=== PATIENT | female | born 1955 | race American Indian/Alaskan Native ===

== ENCOUNTER 2018-11-16 19:59 | Inpatient (IN) | payer OTHER ==
[2018-11-16] MEDS ORDERED: APRESOLINE IV ONE ×2 (21:11→23:28)
--- NOTE | 2018-11-16 21:31 | Emergency Department Report ---
ED Shortness of Breath HPI - General Chief Complaint: Chest Pain Stated Complaint: SWELLING IN LOWER LEGS Time Seen by Provider: 11/16/18 20:32 Source: EMS Mode of arrival: Stretcher Limitations: Other - History of Present Illness Initial Comments: 63-year-old female with history of hypertension and COPD presents to ED with 3 day history of shortness of breath, swelling in bilateral lower extremities. She denies history of congestive heart failure. Patient states has not had blood pressure medication in several [facility], however, patient has been able to receive her albuterol and Atrovent. Patient reports associated chest pain, cough productive of sputum, orthopnea. Denies fever. MD Complaint: shortness of breath, cough, chest pain -: days(s) (3) Severity: moderate Consistency: intermittent Improves With: rest Worsens With: exertion Known History Of: COPD Associated Symptoms: chest pain, cough - Related Data Home Medications Medication Instructions Recorded Confirmed Last Taken Acetaminophen [Pain Reliever] 500 mg PO Q6H 07/29/13 07/29/13 07/29/13 03:00 Codeine Sulfate 30 mg PO Q6H 07/29/13 07/29/13 07/29/13 03:00 Diazepam [Valium] 10 mg PO Q8H PRN 07/29/13 07/29/13 07/29/13 07:30 LORazepam [Ativan] 1 mg PO QHS 07/29/13 07/29/13 07/26/13 Vit A and D3 in Cod Liver Oil [Cod 1 cap PO DAILY 07/29/13 07/29/13 07/27/13 Liver Oil Softgel] Vitamin B Complex [B Complex] 1 each PO DAILY 07/29/13 07/29/13 07/29/13 Vitamin E 400 unit PO DAILY 07/29/13 07/29/13 07/29/13 hydroCHLOROthiazide [Hctz] 25 mg PO QDAY 07/29/13 07/29/13 07/29/13 07:00 traMADol [Ultram] 50 mg PO Q6HR PRN 07/29/13 07/29/13 07/29/13 08:00 Previous Rx's Medication Instructions Recorded Last Taken Type Acetaminophen/Codeine [Tylenol #3] 1 tab PO Q6H PRN #10 tab 07/30/13 Unknown Rx Nitrofurantoin [place]/M-Cryst 100 mg PO Q12HR #14 capsule 07/30/13 Unknown Rx [Macrobid] Phenazopyridine [Pyridium] 100 mg PO TID #15 tablet 07/30/13 Unknown Rx Allergies Allergy/AdvReac Type Severity Reaction Status Date / Time morphine Allergy Swelling Verified 07/29/13 18:54 Penicillins Allergy Swelling Verified 07/29/13 18:54 tetracycline [Tetracycline] Allergy Swelling Verified 07/29/13 18:54 ED Review of Systems ROS: Stated complaint: SWELLING IN LOWER LEGS Other details as noted in HPI Comment: All other systems reviewed and negative Constitutional: denies: chills, fever Respiratory: cough, orthopnea, shortness of breath, SOB with exertion, SOB at rest Cardiovascular: chest pain Musculoskeletal: other (reports swelling to bilateral feet and lower legs) ED Past Medical Hx - Past Medical History Previous Medical History?: Yes Hx Hypertension: Yes Hx Diabetes: Yes Hx Headaches / Migraines: Yes Hx COPD: Yes Additional medical history: devic's disease, diverticulitis - Surgical History Hx Appendectomy: Yes Additional Surgical History: hysterectomy - Social History Smoking Status: Former Smoker Substance Use Type: None - Medications Home Medications: Home Medications Medication Instructions Recorded Confirmed Last Taken Type Acetaminophen [Pain Reliever] 500 mg PO Q6H 07/29/13 07/29/13 07/29/13 03:00 History Codeine Sulfate 30 mg PO Q6H 07/29/13 07/29/13 07/29/13 03:00 History Diazepam [Valium] 10 mg PO Q8H PRN 07/29/13 07/29/13 07/29/13 07:30 History LORazepam [Ativan] 1 mg PO QHS 07/29/13 07/29/13 07/26/13 History Vit A and D3 in Cod Liver Oil [Cod 1 cap PO DAILY 07/29/13 07/29/13 07/27/13 History Liver Oil Softgel] Vitamin B Complex [B Complex] 1 each PO DAILY 07/29/13 07/29/13 07/29/13 History Vitamin E 400 unit PO DAILY 07/29/13 07/29/13 07/29/13 History hydroCHLOROthiazide [Hctz] 25 mg PO QDAY 07/29/13 07/29/13 07/29/13 07:00 History traMADol [Ultram] 50 mg PO Q6HR PRN 07/29/13 07/29/13 07/29/13 08:00 History Acetaminophen/Codeine [Tylenol #3] 1 tab PO Q6H PRN #10 tab 07/30/13 Unknown Rx Nitrofurantoin [place]/M-Cryst 100 mg PO Q12HR #14 capsule 07/30/13 Unknown Rx [Macrobid] Phenazopyridine [Pyridium] 100 mg PO TID #15 tablet 07/30/13 Unknown Rx ED Physical Exam - General Limitations: Other General appearance: alert - Head Head exam: Present: atraumatic, normocephalic - ENT ENT exam: Present: mucous membranes moist - Respiratory Respiratory exam: Present: respiratory distress, rales, other (tachypneic) - Cardiovascular Cardiovascular Exam: Present: normal rhythm, tachycardia - GI/Abdominal GI/Abdominal exam: Present: soft. Absent: distended, tenderness - Extremities Exam Extremities exam: Present: pedal edema, other (1+ pitting edema bilateral lower legs) - Neurological Exam Neurological exam: Present: alert, oriented X3 - Psychiatric Psychiatric exam: Present: normal affect, normal mood - Skin Skin exam: Present: warm, dry, intact, normal color ED Course Vital Signs 11/16/18 11/16/18 11/16/18 20:07 20:54 21:36 Temperature 98.2 F 97.7 F Pulse Rate 108 H 104 H 106 H Respiratory 16 26 H Rate Blood Pressure 210/116 198/95 Blood Pressure 191/108 [Left] O2 Sat by Pulse 96 97 Oximetry 11/16/18 11/16/18 11/17/18 22:30 23:32 00:16 Temperature Pulse Rate 107 H 111 H 102 H Respiratory 28 H 26 H Rate Blood Pressure 190/73 190/73 200/97 Blood Pressure [Left] O2 Sat by Pulse Oximetry - Consultations Consultation #1: 11/17/18 01:13 Spoke w/ Dr Townsend, e learning coordinator. He is aware of pt, agrees w/ management, will be seen in the AM. ED Medical Decision Making - Lab Data Result diagrams: 11/16/18 22:09 11/16/18 22:09 - EKG Data -: EKG Interpreted by Ok EKG shows normal: sinus rhythm, axis, intervals, QRS complexes Rate: tachycardia (rate 105) - EKG Data Interpretation: LVH, other (T wave inversions I and aVL) - Radiology Data Radiology results: report reviewed, image reviewed CXR results faxed: heart is moderately enlarged; lungs clear of infiltrate, pleural effusion, vascular congestion, or pneumothorax. Reports not crossing over into [employer]. - Medical Decision Making 63-year-old female presents to ED with dyspnea on exertion, orthopnea, chest pain, swelling and bilateral lower legs. Patient's hypertension has gone untreated for several years. Patient denies known history of congestive heart failure. Patient has pitting edema to the bilateral feet and lower extremities, rales on lung exam, extremely elevated BNP, moderate cardiomegaly on chest x- ray. No pulmonary edema noted on x-ray, however, on exam rales are auscultated. Patient appears to have new onset CHF, hypertensive emergency and an NSTEMI. Patient given hydralazine for her blood pressure, which has improved. Dr Townsend, e learning coordinator, consulted, agrees w/ management. Glucose is elevated into the 800s. Patient not currently on any diabetes medications, states she was so she is "borderline diabetic." Anion gap 25, bicarbonate of 19 with small amount of serum ketones. Insulin drip initiated. Spoke w/ Dr Ruffin for admission, he requests that bridge orders be placed for ICU. - Differential Diagnosis CHF, COPD, pneumonia Critical Care Time: Yes Critical care time in (mins) excluding proc time.: 70 Critical care attestation.: If time is entered above; I have spent that time in minutes in the direct care of this critically ill patient, excluding procedure time. Critical Care Time: 70 minutes ED Disposition Clinical Impression: New onset of congestive heart failure, NSTEMI (non-ST elevated myocardial infarction), DKA (diabetic ketoacidosis), Hypertensive emergency Disposition: OP ADMIT IP TO THIS HOSP Is pt being admited?: Yes Condition: Critical Instructions: Diabetic Ketoacidosis (ED), Hypertension (ED) Referrals: PAVEL MINAYA MD [Primary Care Provider] - 3-5 Days Time of Disposition: 00:24
[2018-11-16 22:40] LABS: Basophils % (Auto) 0.5 % (0.0-1.8); Eosinophils % (Auto) 0.1 % (0.0-4.3); Hematocrit 42.1 % (30.3-42.9); Hemoglobin 13.2 gm/dl (10.1-14.3); Lymphocytes # (Auto) 0.7 K/mm3 (1.2-5.4); Lymphocytes % (Auto) 7.9 % (13.4-35.0); Mean Corpuscular HGB Conc 31 % (30-34); Mean Corpuscular Volume 92 fl (79-97); Monocytes # (Auto) 0.5 K/mm3 (0.0-0.8); Monocytes % (Auto) 5.3 % (0.0-7.3); Red Blood Count 4.58 M/mm3 (3.65-5.03); Red Cell Distribution Width 16.7 % (13.2-15.2)
[2018-11-16 22:48] LABS: Platelet Count 361 K/mm3 (140-440)
[2018-11-16 23:16] LABS: Chol/HDL Ratio 3.82 %
[2018-11-16 23:17] LABS: BUN/Creatinine Ratio 23; Blood Urea Nitrogen 23 mg/dL (7-17); Hemolysis Index 32
[2018-11-16] MEDS ORDERED: HEPARIN 10,000 UNITS/10 ML IV ONE (23:29)
[2018-11-17 00:11] LABS: INR 0.98 (0.87-1.13)
[2018-11-17 00:12] LABS: Partial Thromboplastin Time 23.8 Sec. (24.2-36.6)
[2018-11-17] MEDS ORDERED: D50W (25GM) Syringe IV PRN (00:16)
[2018-11-17] MEDS: HEPARIN/ 0.45% NACL-25,000 UNIT/500 ML 25,000 UNIT/500 ML BAG IV SCH (01:00)
[2018-11-17] MEDS ORDERED: HumuLIN R 100 UNITS in NACL 0.9% 99 ML IV SCH (01:00)
[2018-11-17] MEDS ORDERED: ZOFRAN IV PRN (01:49)
[2018-11-17] MEDS ORDERED: NITRO-BID 2% TP SCH (02:00)
[2018-11-17 02:20] LABS: BUN/Creatinine Ratio 22; Blood Urea Nitrogen 22 mg/dL (7-17); Hemolysis Index 263
[2018-11-17] MEDS ORDERED: XOPENEX IH PRN (02:33)
[2018-11-17] MEDS ORDERED: NACL 0.9% 500 ML 500 ML ONE (02:39)
[2018-11-17 02:59] LABS: BUN/Creatinine Ratio 21; Blood Urea Nitrogen 21 mg/dL (7-17); Calcium 9.4 mg/dL (8.4-10.2); Hemolysis Index 27
[2018-11-17] MEDS ORDERED: NACL 0.9% 500 ML 500 ML IV SCH (03:00)
[2018-11-17 06:55] LABS: BUN/Creatinine Ratio 21; Blood Urea Nitrogen 21 mg/dL (7-17); Calcium 9.8 mg/dL (8.4-10.2); Hemolysis Index 91
[2018-11-17 07:41] LABS: Creatine Kinase MB 77.1 ng/mL (0.0-4.0)
[2018-11-17] MEDS ORDERED: D5W/0.45% NACL/KCL 20 MEQ 20 MEQ/1,000 ML BAG IV SCH (08:00)
--- NOTE | 2018-11-17 08:17 | Progress Note ---
Assessment and Plan Assessment and plan: --Non-ST elevation [place]; serial cardiac enzymes, echocardiogram for LV function ejection fraction, aspirin and beta blockers kirk inhibitors nitrates and statins, Cardiology evaluation, continue heparin drip --Diabetic ketoacidosis/hyperosmolar state; Patient received insulin drip, blood sugars reasonable level, and an Normal DC drip, start ADA diet, long-acting insulin, diabetic education, nutrition ed ucation --Hypertensive urgency; present on admission, patient blood pressures reasonable level Continue current antihypertensives and when necessary medications -- Acute congestive heart failure; probably systolic dysfunction, unknown ejection fraction, IV diuretics Beta blockers kirk inhibitors, echocardiogram for LV function and ejection fraction Cardiology consult. --DVT prophylaxis ; patient is already on heparin drip --Full CODE STATUS Follow consults evaluation and recommendations plan of care is reviewed with the patient and her nurse Cr Care time 32 min The high probability of a clinically significant, sudden or life threatening deterioration of the [cardiac,metabolic and endocrine] system(s) required my full and direct attention, intervention and personal management.The aggregate critical care time was [32 ] minutes. This time is in addition to time spent performing reported procedures but includes the following: [x] Data Review and interpretation [x] Patient assessment and monitoring of vital signs [x] Documentation [x] Medication orders and management History Interval history: Patient seen and examined medical records reviewed Patient was admitted for DKA/hyperosmolar state/worsening shortness of breath/elevated cardiac enzymes Patient feels slightly better, complaints of cough and congestion And chest discomfort In mild distress Vital signs reviewed Hospitalist Physical - Constitutional Vitals: Temp Pulse Resp BP Pulse Ox 97.7 F 90 22 161/86 97 11/16/18 20:54 11/17/18 04:00 11/17/18 04:00 11/17/18 04:00 11/17/18 07:29 General appearance: Present: mild distress, well-nourished, obese - EENT Eyes: Present: PERRL, EOM intact - Neck Neck: Present: supple, normal ROM - Respiratory Respiratory effort: normal Respiratory: bilateral: diminished, rales, negative: rhonchi, wheezing - Cardiovascular Rhythm: regular Heart Sounds: Present: S1 & S2 - Extremities Extremities: no ischemia Extremity abnormal: edema (bilateral edema) - Abdominal General gastrointestinal: soft, non-tender, non-distended, normal bowel sounds - Integumentary Integumentary: Present: clear, warm - Psychiatric Psychiatric: appropriate mood/affect, cooperative - Neurologic Neurologic: moves all extremities Results - Labs CBC & Chem 7: 11/16/18 22:09 11/17/18 09:04 Labs: Laboratory Last Values WBC 9.1 K/mm3 (4.5-11.0) 11/16/18 22:09 RBC 4.58 M/mm3 (3.65-5.03) 11/16/18 22:09 Hgb 13.2 gm/dl (10.1-14.3) 11/16/18 22:09 Hct 42.1 % (30.3-42.9) 11/16/18 22:09 MCV 92 fl (79-97) 11/16/18 22:09 MCH 29 pg (28-32) 11/16/18 22:09 MCHC 31 % (30-34) 11/16/18 22:09 RDW 16.7 % (13.2-15.2) H 11/16/18 22:09 Plt Count 361 K/mm3 (140-440) 11/16/18 22:09 Lymph % (Auto) 7.9 % (13.4-35.0) L 11/16/18 22:09 [place] % (Auto) 5.3 % (0.0-7.3) 11/16/18 22:09 Eos % (Auto) 0.1 % (0.0-4.3) 11/16/18 22:09 Baso % (Auto) 0.5 % (0.0-1.8) 11/16/18 22:09 Lymph # 0.7 K/mm3 (1.2-5.4) L 11/16/18 22:09 [place] # 0.5 K/mm3 (0.0-0.8) 11/16/18 22:09 Eos # 0.0 K/mm3 (0.0-0.4) 11/16/18 22:09 Baso # 0.0 K/mm3 (0.0-0.1) 11/16/18 22:09 Seg Neutrophils % 86.2 % (40.0-70.0) H 11/16/18 22:09 Seg Neutrophils # 7.8 K/mm3 (1.8-7.7) H 11/16/18 22:09 PT 13.6 Sec. (12.2-14.9) 11/16/18 23:34 INR 0.98 (0.87-1.13) 11/16/18 23:34 APTT 23.8 Sec. (24.2-36.6) L 11/16/18 23:34 Sodium 138 mmol/L (137-145) D 11/17/18 06:08 Potassium 4.4 mmol/L (3.6-5.0) 11/17/18 06:08 Chloride 100.2 mmol/L (98-107) 11/17/18 06:08 Carbon Dioxide 23 mmol/L (22-30) 11/17/18 06:08 Anion Gap 19 mmol/L 11/17/18 06:08 BUN 21 mg/dL (7-17) H 11/17/18 06:08 Creatinine 1.0 mg/dL (0.7-1.2) 11/17/18 06:08 Estimated GFR > 60 ml/min 11/17/18 06:08 BUN/Creatinine Ratio 21 % 11/17/18 06:08 Glucose 72 mg/dL (65-100) 11/17/18 06:08 POC Glucose 131 (70-105) H 11/17/18 07:04 Ketones Quantitative Small (Negative) 11/16/18 22:09 Calcium 9.8 mg/dL (8.4-10.2) 11/17/18 06:08 Phosphorus 4.80 mg/dL (2.5-4.5) H 11/17/18 00:39 Magnesium 2.10 mg/dL (1.7-2.3) 11/17/18 00:39 Total Creatine Kinase 813 units/L (30-135) H 11/17/18 06:08 CK-MB (CK-2) 77.1 ng/mL (0.0-4.0) H 11/17/18 06:08 CK-MB (CK-2) Rel Index 9.4 (0-4) H 11/17/18 06:08 Troponin T 1.200 ng/mL (0.00-0.029) H* 11/16/18 22:09 NT-Pro-B Natriuret Pep 59390 pg/mL (0-900) H 11/16/18 22:09 Triglycerides 231 mg/dL (2-149) H 11/16/18 22:09 Cholesterol 176 mg/dL (50-199) 11/16/18 22:09 LDL Cholesterol Direct 106 mg/dL (50-130) 11/16/18 22:09 HDL Cholesterol 46 mg/dL (40-59) 11/16/18 22:09 Cholesterol/HDL Ratio 3.82 % 11/16/18 22:09
[2018-11-17] MEDS: HumaLOG SUB-Q SCH ×3 (08:45→16:30)
[2018-11-17] MEDS ORDERED: LASIX IV ONE (09:23)
[2018-11-17] MEDS: ASPIRIN PO SCH (10:00)
[2018-11-17 10:12] LABS: BUN/Creatinine Ratio 25; Blood Urea Nitrogen 20 mg/dL (7-17); Calcium 9.4 mg/dL (8.4-10.2); Hemolysis Index 128
--- NOTE | 2018-11-17 10:47 | Consultation ---
History of Present Illness Consult date: 11/17/18 Consult reason: abnormal cardiac enzymes, shortness of breath History of present illness: This 63-year-old patient with history of diabetes mellitus, hypertension and hyperlipidemia followed in the hospital came in with shortness of breath and ac hes and pains all over the body. No specific request chest pain with history of coronary pain. She feels cold all over the body. She has not been able to take medications and claims she was not able to get from the [facility]. Patient has no history of myocardial infarction the past. She's not been regularly followed by physicians as an outpatient. Patient has been having shortness of breath for the last few days along with edema of the legs Past History Past Medical History: diabetes, hypertension, hyperlipidemia Past Surgical History: Other (not known) Social history: no significant social history (Unable to get.) Family history: no significant family history Medications and Allergies Allergies Allergy/AdvReac Type Severity Reaction Status Date / Time dexbrompheniramine Allergy Severe Shortness Verified 11/17/18 05:48 [From Disophrol] of Breath pseudoephedrine Allergy Severe Shortness Verified 11/17/18 05:48 [From Disophrol] of Breath morphine Allergy Swelling Verified 07/29/13 18:54 Penicillins Allergy Swelling Verified 07/29/13 18:54 tetracycline [Tetracycline] Allergy Swelling Verified 07/29/13 18:54 diphenhydramine AdvReac Severe Shortness Verified 11/17/18 05:46 [From Benadryl] of Breath Home Medications Medication Instructions Recorded Confirmed Last Taken Type Acetaminophen [Pain Reliever] 500 mg PO Q6H 07/29/13 11/17/18 07/29/13 03:00 History Codeine Sulfate 30 mg PO Q6H 07/29/13 11/17/18 11/15/18 History Diazepam [Valium] 10 mg PO Q8H PRN 07/29/13 11/17/18 11/15/18 History LORazepam [Ativan] 1 mg PO QHS 07/29/13 11/17/18 11/15/18 History Vit A and D3 in Cod Liver Oil [Cod 1 cap PO DAILY 07/29/13 11/17/18 11/15/18 His tory Liver Oil Softgel] Vitamin B Complex [B Complex] 1 each PO DAILY 07/29/13 11/17/18 11/15/18 History Vitamin E 400 unit PO DAILY 07/29/13 11/17/18 11/15/18 History hydroCHLOROthiazide [Hctz] 25 mg PO QDAY 07/29/13 11/17/18 07/29/13 07:00 History traMADol [Ultram] 50 mg PO Q6HR PRN 07/29/13 11/17/18 11/15/18 History Acetaminophen/Codeine [Tylenol #3] 1 tab PO Q6H PRN #10 tab 07/30/13 11/17/18 Unknown Rx Nitrofurantoin [place]/M-Cryst 100 mg PO Q12HR #14 capsule 07/30/13 11/17/18 11/15/18 Rx [Macrobid] Phenazopyridine [Pyridium] 100 mg PO TID #15 tablet 07/30/13 11/17/18 11/15/18 Rx Diazepam [Valium] 10 mg PO TID 11/17/18 11/17/18 11/15/18 History Active Meds: Active Medications Acetaminophen (Tylenol) 650 mg PO Q4H PRN PRN Reason: Fever >101 Aspirin (Aspirin) 325 mg PO QDAY MEDARDO Dextrose (D50w (25gm) Syringe) 0 ml IV ONCE PRN PRN Reason: Hypoglycemia Furosemide (Lasix) 40 mg IV QDAY MEDARDO Hydralazine HCl (Apresoline) 10 mg IV Q4H PRN PRN Reason: Blood Pressure Hydromorphone HCl (Dilaudid) 0.5 mg IV Q6H PRN PRN Reason: Pain, Moderate (4-6) Heparin Sodium/Sodium Chloride (Heparin/ 0.45% Nacl-25,000 Unit/500 Ml) 25,000 unit in 500 mls @ 20 mls/hr IV TITRATE MEDARDO; Protocol Last Titration: 11/17/18 01:20 Dose: 1,000 units/hr, 20 mls/hr Documented by: Insulin Human Regular 100 (units/ Sodium Chloride) 100 mls @ 5 mls/hr IV TITR MEDARDO; Protocol Stop: 11/17/18 14:00 Last Titration: 11/17/18 08:30 Dose: 0 units/hr, 0 mls/hr Documented by: Sodium Chloride (Nacl 0.9% 500 Ml) 500 mls @ 50 mls/hr IV DIRECT MEDARDO Last Admin: 11/17/18 02:50 Dose: 50 mls/hr Documented by: Potassium Chloride/Dextrose/Sod Cl (D5w/0.45% Nacl/Kcl 20 Meq) 20 meq in 1,000 mls @ 75 mls/hr IV DIRECT MEDARDO Insulin Human Isoph/Insulin Regular (Humulin 70/30) 10 unit SUB-Q BIDDIAB MEDARDO Insulin Human Lispro (Humalog) 0 unit SUB-Q ACHS MEDARDO; Protocol Nitroglycerin (Nitro-Bid 2%) 0.5 inch TP QIDNTG MEDARDO; Protocol Ondansetron HCl (Zofran) 4 mg IV Q8H PRN PRN Reason: Nausea And Vomiting Review of Systems Constitutional: chills, fatigue, weakness, malaise Ears, nose, mouth and throat: deferred Breasts: deferred Cardiovascular: palpitations, dyspnea on exertion, high blood pressure, leg edema Gastrointestinal: abdominal pain Physical Examination Vital Signs Temp Pulse Resp BP Pulse Ox 98.2 F 108 H 16 210/116 96 11/16/18 20:07 11/16/18 20:07 11/16/18 20:07 11/16/18 20:07 11/16/18 20:07 General appearance: mild distress, cachectic HEENT: Positive: Normocephaly, Mucus Membranes Moist Neck: Positive: neck supple, trachea midline. Negative: JVD/HJR Cardiac: Positive: Reg Rate and Rhythm, S3, Tachycardia Lungs: Positive: Decreased Breath Sounds Neuro: Positive: Grossly Intact Abdomen: Positive: Soft, Active Bowel Sounds Extremities: Present: +1 Edema Results 11/16/18 22:09 11/17/18 09:04 Cardiac Enzymes 11/17/18 Range/Units 06:08 CK-MB (CK-2) 77.1 H (0.0-4.0) ng/mL Coagulation 11/16/18 Range/Units 23:34 PT 13.6 (12.2-14.9) Sec. INR 0.98 (0.87-1.13) APTT 23.8 L (24.2-36.6) Sec. Lipids 11/16/18 Range/Units 22:09 Triglycerides 231 H (2-149) mg/dL Cholesterol 176 (50-199) mg/dL HDL Cholesterol 46 (40-59) mg/dL Cholesterol/HDL Ratio 3.82 % CBC 11/16/18 Range/Units 22:09 WBC 9.1 (4.5-11.0) K/mm3 RBC 4.58 (3.65-5.03) M/mm3 Hgb 13.2 (10.1-14.3) gm/dl Hct 42.1 (30.3-42.9) % Plt Count 361 (140-440) K/mm3 Lymph # 0.7 L (1.2-5.4) K/mm3 [place] # 0.5 (0.0-0.8) K/mm3 Eos # 0.0 (0.0-0.4) K/mm3 Baso # 0.0 (0.0-0.1) K/mm3 Comprehensive Metabolic Panel 11/16/18 11/17/18 11/17/18 Range/Units 22:09 00:39 02:28 Sodium 127 L 124 L 131 L D (137-145) mmol/L Potassium 4.9 4.9 4.0 (3.6-5.0) mmol/L Chloride 88.4 L 92.9 L 96.8 L (98-107) mmol/L Carbon Dioxide 19 L 15 L 20 L (22-30) mmol/L BUN 23 H 22 H 21 H (7-17) mg/dL Creatinine 1.0 1.0 1.0 (0.7-1.2) mg/dL Glucose 878 H* 772 H* 492 H (65-100) mg/dL Calcium 9.0 9.0 9.4 (8.4-10.2) mg/dL 11/17/18 11/17/18 Range/Units 06:08 09:04 Sodium 138 D 139 (137-145) mmol/L Potassium 4.4 4.4 (3.6-5.0) mmol/L Chloride 100.2 99.9 (98-107) mmol/L Carbon Dioxide 23 23 (22-30) mmol/L BUN 21 H 20 H (7-17) mg/dL Creatinine 1.0 0.8 (0.7-1.2) mg/dL Glucose 72 106 H (65-100) mg/dL Calcium 9.8 9.4 (8.4-10.2) mg/dL - Imaging and Cardiology Echo: report reviewed, image reviewed (EF29%. Apical LV throbus 1x1.25cm) EKG interpretations - Telemetry EKG Rhythm: Sinus Tachycardia Chamber hypertrophy or enlargement: left ventricular hypertro Repolarization changes or abnormalities: repolarization abn secondary to ventricular hypertrophy Assessment and Plan NSTEMI. LV systolic dysfunction Apical mural thrombus. DKA. Hypertension. Hyperlipidemia. Recommendation: [facility]. After Improvement in DKA will proceed with cardiac cath.Today is Monday. nina plan for Monday. .
[2018-11-17] MEDS: NITRO-BID 2% TP SCH ×3 (10:53→18:00)
[2018-11-17] MEDS: LASIX IV SCH (11:07)
--- NOTE | 2018-11-17 12:13 | Consultation ---
History of Present Illness Consult date: 11/17/18 Reason for consult: other (ICU admission, non-STEMI, DKA) History of present illness: 63-year-old patient with history of diabetes mellitus, hypertension and hyperlipidemia followed in the hospital came in with shortness of breath and aches and pains all over the body. No specific request chest pain with history of coronary pain. She feels cold all over the body. She has not been able to take medications and claims she was not able to get from the [facility]. Patient has no history of myocardial infarction the past. She's not been re gularly followed by physicians as an outpatient. Patient has been having shortness of breath for the last few days along with edema of the legs On evaluation by us this morning, the patient reports some chest discomfort. She claims that this is unchanged since last May. No new symptoms. She also admits to be smoking 1 pack series per day and had been wheezing at home. Frequently. She uses an inhaler that appears to be Combivent, by patient description. Use 3-4 times per day. Reports that she was told to have COPD, chronic bronchitis. Admission EKG SINUS TACHYCARDIA RIGHT ATRIAL ENLARGEMENT LVH WITH SECONDARY REPOLARIZATION ABNORMALITY ANTERIOR ST ELEVATION, PROBABLY DUE TO LVH Echocardiogram Echo: report reviewed, EF29%. Apical LV throbus 1x1.25cm Past History Past Medical History: diabetes, hypertension, hyperlipidemia Past Surgical History: Other (not known) Social history: no significant social history (Unable to get.) Family history: no significant family history Medications and Allergies Allergies Allergy/AdvReac Type Severity Reaction Status Date / Time dexbrompheniramine Allergy Severe Shortness Verified 11/17/18 05:48 [From Disophrol] of Breath pseudoephedrine Allergy Severe Shortness Verified 11/17/18 05:48 [From Disophrol] of Breath morphine Allergy Swelling Verified 07/29/13 18:54 Penicillins Allergy Swelling Verified 07/29/13 18:54 tetracycline [Tetracycline] Allergy Swelling Verified 07/29/13 18:54 diphenhydramine AdvReac Severe Shortness Verified 11/17/18 05:46 [From Benadryl] of Breath Home Medications Medication Instructions Recorded Confirmed Last Taken Type Acetaminophen [Pain Reliever] 500 mg PO Q6H 07/29/13 11/17/18 07/29/13 03:00 History Codeine Sulfate 30 mg PO Q6H 10/28/13 02/16/19 02/14/19 History Diazepam [Valium] 10 mg PO Q8H PRN 07/29/13 11/17/18 11/15/18 History LORazepam [Ativan] 1 mg PO QHS 07/29/13 11/17/18 11/15/18 History Vit A and D3 in Cod Liver Oil [Cod 1 cap PO DAILY 07/29/13 11/17/18 11/15/18 History Liver Oil Softgel] Vitamin B Complex [B Complex] 1 each PO DAILY 07/29/13 11/17/18 11/15/18 History Vitamin E 400 unit PO DAILY 07/29/13 11/17/18 11/15/18 History hydroCHLOROthiazide [Hctz] 25 mg PO QDAY 07/29/13 11/17/18 07/29/13 07:00 History traMADol [Ultram] 50 mg PO Q6HR PRN 07/29/13 11/17/18 11/15/18 History Acetaminophen/Codeine [Tylenol #3] 1 tab PO Q6H PRN #10 tab 07/30/13 11/17/18 Unknown Rx Nitrofurantoin [place]/M-Cryst 100 mg PO Q12HR #14 capsule 07/30/13 11/17/18 11/15/18 Rx [Macrobid] Phenazopyridine [Pyridium] 100 mg PO TID #15 tablet 07/30/13 11/17/18 11/15/18 Rx Diazepam [Valium] 10 mg PO TID 11/17/18 11/17/18 11/15/18 History Active Meds: Active Medications Acetaminophen (Tylenol) 650 mg PO Q4H PRN PRN Reason: Fever >101 Aspirin (Aspirin) 325 mg PO QDAY [facility] Last Admin: 11/17/18 10:00 Dose: 325 mg Documented by: Atorvastatin Calcium (Lipitor) 80 mg PO QHS [facility] Dextrose (D50w (25gm) Syringe) 0 ml IV ONCE PRN PRN Reason: Hypoglycemia Furosemide (Lasix) 40 mg IV QDAY [facility] Last Admin: 11/17/18 11:07 Dose: Not Given Documented by: Hydralazine HCl (Apresoline) 10 mg IV Q4H PRN PRN Reason: Blood Pressure Hydromorphone HCl (Dilaudid) 0.5 mg IV Q6H PRN PRN Reason: Pain, Moderate (4-6) Heparin Sodium/Sodium Chloride (Heparin/ 0.45% Nacl-25,000 Unit/500 Ml) 25,000 unit in 500 mls @ 20 mls/hr IV TITRATE MEDARDO; Protocol Last Titration: 11/17/18 01:20 Dose: 1,000 units/hr, 20 mls/hr Documented by: Insulin Human Regular 100 (units/ Sodium Chloride) 100 mls @ 5 mls/hr IV TITR MEDARDO; Protocol Stop: 11/17/18 14:00 Last Titration: 11/17/18 08:30 Dose: 0 units/hr, 0 mls/hr Documented by: Sodium Chloride (Nacl 0.9% 500 Ml) 500 mls @ 50 mls/hr IV DIRECT MEDARDO Last Admin: 11/17/18 02:50 Dose: 50 mls/hr Documented by: Potassium Chloride/Dextrose/Sod Cl (D5w/0.45% Nacl/Kcl 20 Meq) 20 meq in 1,000 mls @ 75 mls/hr IV DIRECT MEDARDO Insulin Human Isoph/Insulin Regular (Humulin 70/30) 10 unit SUB-Q BIDDIAB MEDARDO Last Admin: 11/17/18 11:04 Dose: 10 unit Documented by: Insulin Human Lispro (Humalog) 0 unit SUB-Q ACHS MEDARDO; Protocol Last Admin: 11/17/18 11:52 Dose: 4 unit Documented by: Metoprolol Tartrate (Lopressor) 25 mg PO BID MEDARDO Nitroglycerin (Nitro-Bid 2%) 0.5 inch TP QIDNTG [facility]; Protocol Last Admin: 11/17/18 10:53 Dose: 0.5 inch Documented by: Ondansetron HCl (Zofran) 4 mg IV Q8H PRN PRN Reason: Nausea And Vomiting Review of Systems All systems: negative Physical Examination Vital signs: Vital Signs Temp Pulse Resp BP Pulse Ox 98.2 F 108 H 16 210/116 96 11/16/18 20:07 11/16/18 20:07 11/16/18 20:07 11/16/18 20:07 11/16/18 20:07 General appearance: no acute distress Eyes: non-icteric ENT: oropharynx moist Neck: supple, no JVD Ascultation: Bilateral: wheezes (bilaterally occasional rhonchi) Cardiovascular: regular rate and rhythm Gastrointestinal: normoactive bowel sounds, non-distended Extremities: no cyanosis, edema Musculoskeletal: no deformities normal mental status, non-focal exam, CN II-XII normal Results - Laboratory Findings CBC and BMP: 11/16/18 22:09 11/17/18 09:04 PT/INR, D-dimer PT 13.6 Sec. (12.2-14.9) 11/16/18 23:34 INR 0.98 (0.87-1.13) 11/16/18 23:34 Abnormal lab findings: Abnormal Labs 11/16/18 11/16/18 11/16/18 20:28 22:09 22:09 RDW 16.7 H Lymph % (Auto) 7.9 L Lymph # 0.7 L Seg Neutrophils % 86.2 H Seg Neutrophils # 7.8 H APTT Heparin Anti-Xa Level Sodium 127 L Chloride 88.4 L Carbon Dioxide 19 L BUN 23 H Glucose 878 H* POC Glucose > 500 H Hemoglobin A1c Phosphorus Total Creatine Kinase CK-MB (CK-2) CK-MB (CK-2) Rel Index Troponin T NT-Pro-B Natriuret Pep Triglycerides 11/16/18 11/16/18 11/16/18 22:09 22:09 23:34 RDW Lymph % (Auto) Lymph # Seg Neutrophils % Seg Neutrophils # APTT 23.8 L Heparin Anti-Xa Level Sodium Chloride Carbon Dioxide BUN Glucose POC Glucose Hemoglobin A1c Phosphorus Total Creatine Kinase CK-MB (CK-2) CK-MB (CK-2) Rel Index Troponin T 1.200 H* NT-Pro-B Natriuret Pep 05441 H Triglycerides 231 H 11/17/18 11/17/18 11/17/18 00:39 00:39 00:57 RDW Lymph % (Auto) Lymph # Seg Neutrophils % Seg Neutrophils # APTT Heparin Anti-Xa Level Sodium 124 L Chloride 92.9 L Carbon Dioxide 15 L BUN 22 H Glucose 772 H* POC Glucose > 500 H Hemoglobin A1c Phosphorus 4.80 H Total Creatine Kinase CK-MB (CK-2) CK-MB (CK-2) Rel Index Troponin T NT-Pro-B Natriuret Pep Triglycerides 11/17/18 11/17/18 11/17/18 02:13 02:28 03:10 RDW Lymph % (Auto) Lymph # Seg Neutrophils % Seg Neutrophils # APTT Heparin Anti-Xa Level Sodium 131 L D Chloride 96.8 L Carbon Dioxide 20 L BUN 21 H Glucose 492 H POC Glucose 436 H 348 H Hemoglobin A1c Phosphorus Total Creatine Kinase CK-MB (CK-2) CK-MB (CK-2) Rel Index Troponin T NT-Pro-B Natriuret Pep Triglycerides 11/17/18 11/17/18 11/17/18 04:10 06:08 06:08 RDW Lymph % (Auto) Lymph # Seg Neutrophils % Seg Neutrophils # APTT Heparin Anti-Xa Level Sodium Chloride Carbon Dioxide BUN 21 H Glucose POC Glucose 319 H Hemoglobin A1c Phosphorus Total Creatine Kinase 813 H CK-MB (CK-2) 77.1 H CK-MB (CK-2) Rel Index 9.4 H Troponin T 1.550 H* D NT-Pro-B Natriuret Pep Triglycerides 11/17/18 11/17/18 11/17/18 07:04 08:30 09:04 RDW Lymph % (Auto) Lymph # Seg Neutrophils % Seg Neutrophils # APTT Heparin Anti-Xa Level Sodium Chloride Carbon Dioxide BUN 20 H Glucose 106 H POC Glucose 131 H 66 L Hemoglobin A1c Phosphorus Total Creatine Kinase CK-MB (CK-2) CK-MB (CK-2) Rel Index Troponin T NT-Pro-B Natriuret Pep Triglycerides 11/17/18 11/17/18 11/17/18 09:04 09:04 11:50 RDW Lymph % (Auto) Lymph # Seg Neutrophils % Seg Neutrophils # APTT Heparin Anti-Xa Level 1.06 H Sodium Chloride Carbon Dioxide BUN Glucose POC Glucose 201 H Hemoglobin A1c 17.7 H Phosphorus Total Creatine Kinase CK-MB (CK-2) CK-MB (CK-2) Rel Index Troponin T NT-Pro-B Natriuret Pep Triglycerides - Diagnostic Findings Chest x-ray: report reviewed, image reviewed Assessment and Plan Impression NSTEMI. LV systolic dysfunction Apical mural thrombus. See echo report DKA. Elevated blood sugar, hyperosmolar possibly. Off insulin drip at this po int. Reportedly she was not on any diabetes treatment as an outpatient, no follow-up COPD with exacerbation. Secondary to the above Tobacco abuse Hypertension. Controlled Hyperlipidemia. Recommendations [place] protocol. Follow-up cardiology recommendations Possible heart cath Monday Heparin infusion Continue DKA protocol, start diet long-acting insulin once anion gap cleared today. DVT prophylaxis Albuterol 2.5 milligram nebulizations every 6 hours when necessary No Solu-Medrol for now in view of blood sugar problems. We'll continue to monitor Oxygen support via nasal cannula or mask to maintain oximetry over 92% Smoking cessation discussed in detail. Thanks. Discussed with patient in detail all questions answered. We'll continue to follow while in the ICU Critical care time was 40 minutes of [id number] evaluation and coordination of care
[2018-11-17] MEDS ORDERED: PROVENTIL IH PRN (12:20)
--- NOTE | 2018-11-17 12:28 | History and Physical Report ---
CHIEF COMPLAINT: Chest pain. HISTORY OF PRESENT ILLNESS: The patient is a 63-year-old female, who says she has been having pain all over her body including the chest going on for about 3 days and associated with shortness of breath and swelling in the lower extremity. The patient also complained about orthopnea and nonproductive cough. There is no history of fever, no history of chills, but there is history of rapid heartbeat or tachycardia. The patient also denied history of nausea and vomiting and presented for evaluation. There is no history of dizziness. PAST MEDICAL HISTORY: Pertinent for hypertension, diabetes mellitus, migraine headaches, COPD, diverticulitis. PAST SURGICAL HISTORY: Pertinent for appendectomy and hysterectomy. FAMILY HISTORY: Noncontributory. SOCIAL HISTORY: The patient used to smoke cigarettes, but does not smoke currently, does not drink alcohol and does not use illicit drugs. MEDICATIONS: The patient's medications include Ativan 1 mg by mouth at bedtime, vitamin A and vitamin D one by mouth daily. Also, the patient takes vitamin B complex one by mouth daily, hydrochlorothiazide 25 mg by mouth daily, tramadol 50 mg by mouth every 6 hours as needed for pain. These medications were taken by the patient in 2012 and it is not clear whether the patient needs to be taking them at the current time. ALLERGIES: THE PATIENT IS ALLERGIC TO MORPHINE, PENICILLIN AND TETRACYCLINE. REVIEW OF SYSTEMS: CONSTITUTIONAL: There is no fever, no chills, no diaphoresis. HEENT: There is no headache or sore throat. CARDIOVASCULAR SYSTEM: Chest pain is present. Palpitations present. Orthopnea present. RESPIRATORY SYSTEM: Shortness of breath is present. Cough is present. GASTROINTESTINAL SYSTEM: There is no nausea, no vomiting, no abdominal pain, diarrhea or constipation. NEUROLOGICAL: There is no numbness, no dizziness, no altered mental status. MUSCULOSKELETAL SYSTEM: There is no joint pain or swelling. DERMATOLOGICAL SYSTEM: There is no skin rash or itching. GENITOURINARY SYSTEM: There is no dysuria, hematuria or flank pain. Rest of system review is normal. PHYSICAL EXAMINATION: GENERAL: At the time of exam, the patient was found to be alert, oriented x 3, and in mild distress due to shortness of breath. VITAL SIGNS: At the initial time of presentation show temperature of 98.2 degrees Fahrenheit, pulse of 108, respirations 16, blood pressure is 210/116 and O2 sat of 96% on room air and blood pressure later on came down to 161/51. HEENT: Showed pupils to be equal, round and reactive to light and accommodating. Extraocular muscles are intact. NECK: Supple with no JVD or carotid bruit. CARDIOVASCULAR SYSTEM: Showed normal first and second heart sounds with no gallops or murmurs. RESPIRATORY: Show good air entry on both sides of the lungs with no abnormal breath sounds. GASTROINTESTINAL SYSTEM: Show abdomen to be full, soft, nontender with no organomegaly or rigidity. NEUROLOGICAL: Shows no focal deficit. MUSCULOSKELETAL SYSTEM: Show swelling in the ankles, but no joint tenderness. DERMATOLOGICAL SYSTEM: Show no skin rash. GENITOURINARY SYSTEM: Show no costovertebral angle tenderness. PERTINENT LABORATORY AND IMAGING STUDIES: The patient had chest x-ray done that shows mild pulmonary congestion and the patient's lab results show CBC with normal white count, normal hemoglobin and normal hematocrit with CBC differential showing elevated segmented neutrophil of 86.2 with no significant bands found. Coagulation studies were unremarkable. The patient's chemistry showed low sodium of 127, low chloride of 88.4, low CO2 of 19 and a slightly elevated BUN of 23 with normal creatinine and normal estimated GFR of greater than 60. The patient's blood glucose level was critically high with a value of 878 and the patient's anion gap is 20. The patient's troponin level is high with a value of 1.2. The patient's brain natriuretic peptide level is high with a value of 23,861. DIAGNOSES: 1. 1. New onset congestive heart failure. 2. 2. Non-ST elevation myocardial infarction. 3. 3. Diabetic ketoacidosis. 4. 4. Hypertensive crisis. PLAN OF ACTION: 1. The patient will be admitted to ICU as an inpatient. 2. The patient will have a critical care consult with Dr. Chavarria because of ICU admission for insulin drip. 3. The patient will be on IV insulin drip per DKA protocol. 4. The patient will be on IV normal saline running at 50 mL an hour, for only 500 mL because of history of congestive heart failure. 5. The patient will continue IV heparin started in the Emergency Room because of NSTEMI. 1. 6. The patient will continue Cardiology consult with Dr. Joyce Townsend because of NSTEMI. 2. 7. The patient will have 2D echo done this morning and will have cardiac enzymes involving troponin, total CK and CK-MB checked every 6 hours x 2 more level. 3. 8. The patient will have basic metabolic panel checked every 2 hours and 8 hours per DKA protocol and will have IV fluid changed from normal saline to D5 half normal with potassium running at 75 mL an hour when blood sugar is less than 250 mg/dL. 4. 9. The patient will be on Tylenol 650 mg by mouth every 4 hours for fever and headache and will be on aspirin 325 mg daily. 5. 10. The patient will be on Xopenex 0.63 mg every 8 hours as needed for shortness of breath and will be on nitro paste half inch to anterior chest wall q. 6 hours. 6. 11. The patient will be on IV Zofran 4 mg every 8 hours as needed for nausea and vomiting and will be on IV hydralazine 10 mg every 4 hours as needed for blood pressure of 160/90 or more. 7. 12. The patient will remain n.p.o. until the patient is out of DKA, during which, the patient will be switched over to sliding scale insulin coverage and given a consistent carbohydrate 2 g sodium diet. 8. 13. The patient will be on oxygen by nasal cannula 2 liters per minute. JOB# [id number] [facility]/NATHAN SINGLETON
[2018-11-17] MEDS: TYLENOL PO PRN (12:46)
[2018-11-17] MEDS: APRESOLINE IV PRN (12:54)
[2018-11-17] MEDS: DILAUDID IV PRN (15:24)
[2018-11-17] MEDS: LOPRESSOR PO SCH (21:33)
[2018-11-18 02:18] LABS: Creatine Kinase MB 28.6 ng/mL (0.0-4.0)
[2018-11-18 02:29] LABS: BUN/Creatinine Ratio 25; Blood Urea Nitrogen 25 mg/dL (7-17); Calcium 8.9 mg/dL (8.4-10.2); Hemolysis Index 59
[2018-11-18 05:23] LABS: Basophils # (Auto) 0.1 K/mm3 (0.0-0.1); Basophils % (Auto) 0.8 % (0.0-1.8); Eosinophils # (Auto) 0.1 K/mm3 (0.0-0.4); Eosinophils % (Auto) 0.5 % (0.0-4.3); Hematocrit 40.2 % (30.3-42.9); Hemoglobin 12.8 gm/dl (10.1-14.3); Lymphocytes # (Auto) 1.4 K/mm3 (1.2-5.4); Lymphocytes % (Auto) 12.8 % (13.4-35.0); Mean Corpuscular HGB Conc 32 % (30-34); Mean Corpuscular Volume 91 fl (79-97); Monocytes # (Auto) 0.9 K/mm3 (0.0-0.8); Monocytes % (Auto) 7.8 % (0.0-7.3); Platelet Count 341 K/mm3 (140-440); Red Blood Count 4.43 M/mm3 (3.65-5.03); Red Cell Distribution Width 16.2 % (13.2-15.2)
[2018-11-18 05:53] LABS: BUN/Creatinine Ratio 24; Blood Urea Nitrogen 24 mg/dL (7-17); Calcium 8.7 mg/dL (8.4-10.2); Hemolysis Index 5
[2018-11-18] MEDS: NITRO-BID 2% TP SCH ×4 (06:54→21:02)
[2018-11-18] MEDS: HumaLOG SUB-Q SCH ×5 (06:54→21:56)
[2018-11-18] MEDS: HEPARIN/ 0.45% NACL-25,000 UNIT/500 ML 25,000 UNIT/500 ML BAG IV SCH (06:58)
--- NOTE | 2018-11-18 08:40 | Progress Note ---
Assessment and Plan Assessment and plan: --Non-ST elevation FL; serial cardiac enzymes, aspirin and beta blockers kirk inhibitors nitrates and statins, Cardiology following, continue heparin drip,Cath tomorrow per cardiology --Diabetic ketoacidosis/hyperosmolar state;s/p insulin drip On long-acting insulin now, blood sugars reasonable level, ADA diet, long-acting insulin, diabetic education, nutrition education --Hypertensive urgency; present on admission, patient blood pressures reasonable level Continue current antihypertensives and when necessary medications -- Acute Systolic congestive heart failure;EF 20-25% IV diuretics, Beta blockers ,kirk inhibitors, input output monitoring Low-sodium diet, fluid restriction, daily weights --Dyslipidemia; continue statin --DVT prophylaxis ; patient is already on heparin drip --Full CODE STATUS plan of care is reviewed with the patient and her nurse Cr Care time 31 min The high probability of a clinically significant, sudden or life threatening deterioration of the [ cardiac,metabolic and endocrine] system(s) required my full and direct attention, intervention and personal management.The aggregate critical care time was [31] minutes. This time is in addition to time spent performing reported procedures but includes the following: [x] Data Review and interpretation [x] Patient assessment and monitoring of vital signs [x] Documentation [x] Medication orders and management History Interval history: Patient seen and examined medical records reviewed No new events reported by the nursing staff Patient has mild shortness of breath Alert awake oriented, wants to go home Vital signs reviewed Hospitalist Physical - Constitutional Vitals: Temp Pulse Resp BP Pulse Ox 98.6 F 78 22 172/83 98 11/17/18 19:45 11/18/18 06:54 11/17/18 04:00 11/18/18 06:54 11/18/18 08:03 General appearance: Present: no acute distress, well-nourished - EENT Eyes: Present: PERRL, EOM intact - Neck Neck: Present: supple, normal ROM - Respiratory Respiratory effort: normal Respiratory: bilateral: diminished, rales, negative: rhonchi, wheezing - Cardiovascular Rhythm: regular Heart Sounds: Present: S1 & S2 - Extremities Extremities: no ischemia, No edema - Abdominal General gastrointestinal: soft, non-tender, non-distended, normal bowel sounds - Integumentary Integumentary: Present: clear, warm - Psychiatric Psychiatric: appropriate mood/affect, cooperative - Neurologic Neurologic: CNII-XII intact, moves all extremities Results - Labs CBC & Chem 7: 11/18/18 04:49 11/18/18 04:49 Labs: Laboratory Last Values WBC 11.0 K/mm3 (4.5-11.0) 11/18/18 04:49 RBC 4.43 M/mm3 (3.65-5.03) 11/18/18 04:49 Hgb 12.8 gm/dl (10.1-14.3) 11/18/18 04:49 Hct 40.2 % (30.3-42.9) 11/18/18 04:49 MCV 91 fl (79-97) 11/18/18 04:49 MCH 29 pg (28-32) 11/18/18 04:49 MCHC 32 % (30-34) 11/18/18 04:49 RDW 16.2 % (13.2-15.2) H 11/18/18 04:49 Plt Count 341 K/mm3 (140-440) 11/18/18 04:49 Lymph % (Auto) 12.8 % (13.4-35.0) L 11/18/18 04:49 Colbert % (Auto) 7.8 % (0.0-7.3) H 11/18/18 04:49 Eos % (Auto) 0.5 % (0.0-4.3) 11/18/18 04:49 Baso % (Auto) 0.8 % (0.0-1.8) 11/18/18 04:49 Lymph # 1.4 K/mm3 (1.2-5.4) 11/18/18 04:49 Colbert # 0.9 K/mm3 (0.0-0.8) H 11/18/18 04:49 Eos # 0.1 K/mm3 (0.0-0.4) 11/18/18 04:49 Baso # 0.1 K/mm3 (0.0-0.1) 11/18/18 04:49 Seg Neutrophils % 78.1 % (40.0-70.0) H 11/18/18 04:49 Seg Neutrophils # 8.6 K/mm3 (1.8-7.7) H 11/18/18 04:49 PT 13.6 Sec. (12.2-14.9) 11/16/18 23:34 INR 0.98 (0.87-1.13) 11/16/18 23:34 APTT 23.8 Sec. (24.2-36.6) L 11/16/18 23:34 Heparin Anti-Xa Level 0.63 U.I./ml (0.3-0.7) 11/18/18 01:40 Sodium 140 mmol/L (137-145) 11/18/18 04:49 Potassium 3.8 mmol/L (3.6-5.0) 11/18/18 04:49 Chloride 104.4 mmol/L (98-107) 11/18/18 04:49 Carbon Dioxide 26 mmol/L (22-30) 11/18/18 04:49 Anion Gap 13 mmol/L 11/18/18 04:49 BUN 24 mg/dL (7-17) H 11/18/18 04:49 Creatinine 1.0 mg/dL (0.7-1.2) 11/18/18 04:49 Estimated GFR > 60 ml/min 11/18/18 04:49 BUN/Creatinine Ratio 24 % 11/18/18 04:49 Glucose 74 mg/dL (65-100) 11/18/18 04:49 POC Glucose 97 (70-105) 11/18/18 07:50 Hemoglobin A1c 17.7 % (4-6) H 11/17/18 09:04 Ketones Quantitative Small (Negative) 11/16/18 22:09 Calcium 8.7 mg/dL (8.4-10.2) 11/18/18 04:49 Phosphorus 4.80 mg/dL (2.5-4.5) H 11/17/18 00:39 Magnesium 2.10 mg/dL (1.7-2.3) 11/17/18 00:39 Total Creatine Kinase 323 units/L (30-135) H 11/18/18 01:40 CK-MB (CK-2) 28.6 ng/mL (0.0-4.0) H 11/18/18 01:40 CK-MB (CK-2) Rel Index 8.8 (0-4) H 11/18/18 01:40 Troponin T 1.290 ng/mL (0.00-0.029) H* 11/18/18 01:40 NT-Pro-B Natriuret Pep 85647 pg/mL (0-900) H 11/16/18 22:09 Triglycerides 231 mg/dL (2-149) H 11/16/18 22:09 Cholesterol 176 mg/dL (50-199) 11/16/18 22:09 LDL Cholesterol Direct 106 mg/dL (50-130) 11/16/18 22:09 HDL Cholesterol 46 mg/dL (40-59) 11/16/18 22:09 Cholesterol/HDL Ratio 3.82 % 11/16/18 22:09
[2018-11-18] MEDS: ASPIRIN PO SCH (09:51)
[2018-11-18] MEDS: LOPRESSOR PO SCH ×3 (09:52→21:58)
[2018-11-18] MEDS: LASIX IV SCH (09:55)
--- NOTE | 2018-11-18 10:56 | Progress Note ---
Assessment and Plan NSTEMI. LV systolic dysfunction Apical mural thrombus. DKA. Hypertension. Hyperlipidemia. Recommendation: [place] protocol. After Improvement in DKA will proceed with cardiac cath.Today is Monday. will plan for Monday or Monday. . Subjective Date of service: 11/18/18 Interval history: Feels cold. No chest pain or palpitations. No SOB in the bed. Objective Vital Signs Temp Pulse BP Pulse Ox 11/18/18 09:52 71 171/81 11/18/18 09:51 91 H 171/81 11/18/18 09:00 100 11/18/18 08:03 98 11/18/18 06:54 78 172/83 11/18/18 05:19 100 11/18/18 01:19 100 11/18/18 01:00 100 11/17/18 23:00 100 11/17/18 22:00 94 H 11/17/18 21:33 92 H 154/103 11/17/18 21:00 100 11/17/18 20:04 96 11/17/18 19:45 98.6 F 11/17/18 19:00 100 11/17/18 18:00 103 H 163/76 11/17/18 17:00 100 11/17/18 15:00 100 11/17/18 14:12 93 H 154/73 11/17/18 13:00 100 11/17/18 12:54 102 H 179/96 11/17/18 11:00 100 11/17/18 10:53 95 H 155/73 - Physical Examination General: No Apparent Distress HEENT: Positive: Normocephaly, Mucus Membranes Moist Neck: Positive: neck supple, trachea midline. Negative: JVD/HJR Cardiac: Positive: S1/S2, S3, S4 Lungs: Positive: Normal Breath Sounds Neuro: Positive: Grossly Intact Abdomen: Positive: Soft, Active Bowel Sounds. Negative: Organomegaly Extremities: Present: +1 Edema - Labs and Meds Cardiac Enzymes 11/18/18 Range/Units 01:40 CK-MB (CK-2) 28.6 H (0.0-4.0) ng/mL CBC 11/18/18 Range/Units 04:49 WBC 11.0 (4.5-11.0) K/mm3 RBC 4.43 (3.65-5.03) M/mm3 Hgb 12.8 (10.1-14.3) gm/dl Hct 40.2 (30.3-42.9) % Plt Count 341 (140-440) K/mm3 Lymph # 1.4 (1.2-5.4) K/mm3 Cecil # 0.9 H (0.0-0.8) K/mm3 Eos # 0.1 (0.0-0.4) K/mm3 Baso # 0.1 (0.0-0.1) K/mm3 Comprehensive Metabolic Panel 11/18/18 11/18/18 Range/Units 01:40 04:49 Sodium 138 140 (137-145) mmol/L Potassium 3.9 3.8 (3.6-5.0) mmol/L Chloride 102.5 104.4 (98-107) mmol/L Carbon Dioxide 24 26 (22-30) mmol/L BUN 25 H 24 H (7-17) mg/dL Creatinine 1.0 1.0 (0.7-1.2) mg/dL Glucose 71 74 (65-100) mg/dL Calcium 8.9 8.7 (8.4-10.2) mg/dL - Imaging and Cardiology Echo: report reviewed, image reviewed (EF29%. Apical LV throbus 1x1.25cm) - Telemetry EKG Rhythm: Sinus Rhythm - EKG Sinus rhythms and dysrhythmias: sinus rhythm, sinus tachycardia Chamber hypertrophy or enlargement: left ventricular hypertro Repolarization changes or abnormalities: repolarization abn secondary to ventricular hypertrophy
[2018-11-18] MEDS: APRESOLINE IV PRN (14:19)
--- NOTE | 2018-11-18 16:07 | Progress Note ---
Assessment and Plan Impression NSTEMI. No clear-cut chest pain at this time. He improved LV systolic dysfunction Apical mural thrombus. See echo report DKA. Elevated blood sugar, hyperosmolar possibly. Controlled COPD with exacerbation. Improved chest congestion Tobacco abuse Hypertension. Controlled Hyperlipidemia. Recommendations ID protocol. Possible heart cath Monday Continue DKA protocol, diet long-acting insulin once anion gap cleared today. DVT prophylaxis Albuterol 2.5 milligram nebulizations every 6 hours when necessary Oxygen support via nasal cannula or mask to maintain oximetry over 92% Critical care time was 31 minutes of [id number] evaluation and coordination of care Subjective Date of service: 11/18/18 Principal diagnosis: non-STEMI, DKA Interval history: Feels better today. Still complaining of some chest discomfort, unclear if this is pain are not-pressure? Objective Vital Signs - 12hr 11/18/18 11/18/18 11/18/18 05:19 06:54 08:03 Pulse Rate 78 Blood Pressure 172/83 O2 Sat by Pulse 100 98 Oximetry 11/18/18 11/18/18 11/18/18 09:00 09:51 09:52 Pulse Rate 91 H 71 Blood Pressure 171/81 171/81 O2 Sat by Pulse 100 Oximetry 11/18/18 11/18/18 11/18/18 10:00 12:16 13:00 Pulse Rate 63 82 Blood Pressure 165/76 O2 Sat by Pulse 100 Oximetry 11/18/18 11/18/18 14:15 14:19 Pulse Rate 65 72 Blood Pressure 189/95 189/95 O2 Sat by Pulse Oximetry Constitutional: no acute distress, alert Eyes: non-icteric ENT: oropharynx moist Neck: supple, no JVD Ascultation: Bilateral: clear, diminished breath sounds Cardiovascular: regular rate and rhythm Gastrointestinal: normoactive bowel sounds, non-distended Extremities: no cyanosis, edema Neurologic: normal mental status, non-focal exam, CN II-XII normal CBC and BMP: 11/18/18 04:49 11/18/18 04:49 ABG, PT/INR, D-dimer: PT/INR, D-dimer PT 13.6 Sec. (12.2-14.9) 11/16/18 23:34 INR 0.98 (0.87-1.13) 11/16/18 23:34 Abnormal lab findings: Abnormal Labs 11/16/18 11/16/18 11/16/18 20:28 22:09 22:09 RDW 16.7 H Lymph % (Auto) 7.9 L [place] % (Auto) Lymph # 0.7 L [place] # Seg Neutrophils % 86.2 H Seg Neutrophils # 7.8 H APTT Heparin Anti-Xa Level Sodium 127 L Chloride 88.4 L Carbon Dioxide 19 L BUN 23 H Glucose 878 H* POC Glucose > 500 H Hemoglobin A1c Phosphorus Total Creatine Kinase CK-MB (CK-2) CK-MB (CK-2) Rel Index Troponin T NT-Pro-B Natriuret Pep Triglycerides 11/16/18 11/16/18 11/16/18 22:09 22:09 23:34 RDW Lymph % (Auto) [place] % (Auto) Lymph # [place] # Seg Neutrophils % Seg Neutrophils # APTT 23.8 L Heparin Anti-Xa Level Sodium Chloride Carbon Dioxide BUN Glucose POC Glucose Hemoglobin A1c Phosphorus Total Creatine Kinase CK-MB (CK-2) CK-MB (CK-2) Rel Index Troponin T 1.200 H* NT-Pro-B Natriuret Pep 04262 H Triglycerides 231 H 11/17/18 11/17/18 11/17/18 00:39 00:39 00:57 RDW Lymph % (Auto) [place] % (Auto) Lymph # [place] # Seg Neutrophils % Seg Neutrophils # APTT Heparin Anti-Xa Level Sodium 124 L Chloride 92.9 L Carbon Dioxide 15 L BUN 22 H Glucose 772 H* POC Glucose > 500 H Hemoglobin A1c Phosphorus 4.80 H Total Creatine Kinase CK-MB (CK-2) CK-MB (CK-2) Rel Index Troponin T NT-Pro-B Natriuret Pep Triglycerides 11/17/18 11/17/18 11/17/18 02:13 02:28 03:10 RDW Lymph % (Auto) [place] % (Auto) Lymph # [place] # Seg Neutrophils % Seg Neutrophils # APTT Heparin Anti-Xa Level Sodium 131 L D Chloride 96.8 L Carbon Dioxide 20 L BUN 21 H Glucose 492 H POC Glucose 436 H 348 H Hemoglobin A1c Phosphorus Total Creatine Kinase CK-MB (CK-2) CK-MB (CK-2) Rel Index Troponin T NT-Pro-B Natriuret Pep Triglycerides 11/17/18 11/17/18 11/17/18 04:10 06:08 06:08 RDW Lymph % (Auto) [place] % (Auto) Lymph # [place] # Seg Neutrophils % Seg Neutrophils # APTT Heparin Anti-Xa Level Sodium Chloride Carbon Dioxide BUN 21 H Glucose POC Glucose 319 H Hemoglobin A1c Phosphorus Total Creatine Kinase 813 H CK-MB (CK-2) 77.1 H CK-MB (CK-2) Rel Index 9.4 H Troponin T 1.550 H* D NT-Pro-B Natriuret Pep Triglycerides 11/17/18 11/17/18 11/17/18 07:04 08:30 09:04 RDW Lymph % (Auto) [place] % (Auto) Lymph # [place] # Seg Neutrophils % Seg Neutrophils # APTT Heparin Anti-Xa Level Sodium Chloride Carbon Dioxide BUN 20 H Glucose 106 H POC Glucose 131 H 66 L Hemoglobin A1c Phosphorus Total Creatine Kinase CK-MB (CK-2) CK-MB (CK-2) Rel Index Troponin T NT-Pro-B Natriuret Pep Triglycerides 11/17/18 11/17/18 11/17/18 09:04 09:04 11:50 RDW Lymph % (Auto) [place] % (Auto) Lymph # [place] # Seg Neutrophils % Seg Neutrophils # APTT Heparin Anti-Xa Level 1.06 H Sodium Chloride Carbon Dioxide BUN Glucose POC Glucose 201 H Hemoglobin A1c 17.7 H Phosphorus Total Creatine Kinase CK-MB (CK-2) CK-MB (CK-2) Rel Index Troponin T NT-Pro-B Natriuret Pep Triglycerides 11/17/18 11/17/18 11/18/18 16:58 21:28 01:40 RDW Lymph % (Auto) [place] % (Auto) Lymph # [place] # Seg Neutrophils % Seg Neutrophils # APTT Heparin Anti-Xa Level Sodium Chloride Carbon Dioxide BUN 25 H Glucose POC Glucose 230 H 187 H Hemoglobin A1c Phosphorus Total Creatine Kinase CK-MB (CK-2) CK-MB (CK-2) Rel Index Troponin T NT-Pro-B Natriuret Pep Triglycerides 11/18/18 11/18/18 11/18/18 01:40 04:49 04:49 RDW 16.2 H Lymph % (Auto) 12.8 L [place] % (Auto) 7.8 H Lymph # [place] # 0.9 H Seg Neutrophils % 78.1 H Seg Neutrophils # 8.6 H APTT Heparin Anti-Xa Level Sodium Chloride Carbon Dioxide BUN 24 H Glucose POC Glucose Hemoglobin A1c Phosphorus Total Creatine Kinase 323 H CK-MB (CK-2) 28.6 H CK-MB (CK-2) Rel Index 8.8 H Troponin T 1.290 H* NT-Pro-B Natriuret Pep Triglycerides 11/18/18 12:03 RDW Lymph % (Auto) [place] % (Auto) Lymph # [place] # Seg Neutrophils % Seg Neutrophils # APTT Heparin Anti-Xa Level Sodium Chloride Carbon Dioxide BUN Glucose POC Glucose 140 H Hemoglobin A1c Phosphorus Total Creatine Kinase CK-MB (CK-2) CK-MB (CK-2) Rel Index Troponin T NT-Pro-B Natriuret Pep Triglycerides
[2018-11-18] MEDS: DILAUDID IV PRN (20:29)
[2018-11-19 03:59] LABS: Basophils # (Auto) 0.1 K/mm3 (0.0-0.1); Basophils % (Auto) 0.6 % (0.0-1.8); Eosinophils % (Auto) 0.2 % (0.0-4.3); Hemoglobin 15.2 gm/dl (10.1-14.3); Lymphocytes # (Auto) 1.3 K/mm3 (1.2-5.4); Lymphocytes % (Auto) 12.2 % (13.4-35.0); Mean Corpuscular HGB Conc 32 % (30-34); Mean Corpuscular Volume 91 fl (79-97); Monocytes # (Auto) 0.5 K/mm3 (0.0-0.8); Monocytes % (Auto) 4.9 % (0.0-7.3); Red Blood Count 5.25 M/mm3 (3.65-5.03); Red Cell Distribution Width 16.6 % (13.2-15.2)
[2018-11-19 04:03] LABS: Hematocrit 47.4 % (30.3-42.9); Platelet Count 383 K/mm3 (140-440)
[2018-11-19 04:21] LABS: BUN/Creatinine Ratio 25; Blood Urea Nitrogen 20 mg/dL (7-17); Calcium 9.3 mg/dL (8.4-10.2); Hemolysis Index 26
[2018-11-19] MEDS: TYLENOL PO PRN (05:07)
[2018-11-19] MEDS: NITRO-BID 2% TP SCH ×3 (05:12→15:06)
[2018-11-19 06:21] LABS: INR 0.94 (0.87-1.13)
[2018-11-19 06:28] LABS: BUN/Creatinine Ratio 25; Blood Urea Nitrogen 20 mg/dL (7-17); Calcium 8.6 mg/dL (8.4-10.2); Hemolysis Index 11
[2018-11-19] MEDS: HumaLOG SUB-Q SCH ×3 (10:33→22:00)
[2018-11-19] MEDS: LOPRESSOR PO SCH ×2 (10:41→22:57)
[2018-11-19] MEDS: ASPIRIN PO SCH (10:41)
[2018-11-19] MEDS: LASIX IV SCH (10:45)
--- NOTE | 2018-11-19 11:32 | Progress Note ---
Assessment and Plan Assessment and plan: --Hypokalemia : replace with kcl --Hypo magnessemia: replace per protocol --Non-ST elevation IN; serial cardiac enzymes, aspirin and beta blockers kirk inhibitors nitrates and statins, Cardiology following, continue heparin drip,Cath tomorrow per cardiology --Diabetic ketoacidosis/hyperosmolar state;s/p insulin drip On long-acting insulin now, blood sugars reasonable level, ADA diet, long-acting insulin, diabetic education, nutrition education --Hypertensive urgency; present on admission, patient blood pressures reasonable level Continue current antihypertensives and when necessary medications -- Acute Systolic congestive heart failure;EF 20-25% IV diuretics, Beta blockers ,kirk inhibitors, input output monitoring Low-sodium diet, fluid restriction, daily weights --Dyslipidemia; continue statin --DVT prophylaxis ; patient is already on heparin drip --Full CODE STATUS plan of care is reviewed with the patient and her nurse Possible discharge in 1-2 days if stable History Interval history: Patient seen and examined medical records reviewed Patient feels slightly better complaints of mild shortness of breath Alert awake oriented vital signs noted No new events reported by the nursing Hospitalist Physical - Constitutional Vitals: Temp Pulse Resp BP Pulse Ox 98.4 F 79 16 155/71 100 11/19/18 07:37 11/19/18 10:45 11/19/18 08:35 11/19/18 10:45 11/19/18 08:35 General appearance: Present: no acute distress, well-nourished - EENT Eyes: Present: PERRL, EOM intact - Neck Neck: Present: supple, normal ROM - Respiratory Respiratory effort: normal Respiratory: bilateral: diminished, rales, negative: rhonchi, wheezing - Cardiovascular Rhythm: regular Heart Sounds: Present: S1 & S2 - Extremities Extremities: no ischemia, No edema - Abdominal General gastrointestinal: soft, non-tender, non-distended - Integumentary Integumentary: Present: clear, warm - Psychiatric Psychiatric: appropriate mood/affect, cooperative - Neurologic Neurologic: CNII-XII intact, moves all extremities Results - Labs CBC & Chem 7: 11/19/18 03:27 11/19/18 04:48 Labs: Laboratory Last Values WBC 10.8 K/mm3 (4.5-11.0) 11/19/18 03:27 RBC 5.25 M/mm3 (3.65-5.03) H 11/19/18 03:27 Hgb 15.2 gm/dl (10.1-14.3) H 11/19/18 03:27 Hct 47.4 % (30.3-42.9) H D 11/19/18 03:27 MCV 91 fl (79-97) 11/19/18 03:27 MCH 29 pg (28-32) 11/19/18 03:27 MCHC 32 % (30-34) 11/19/18 03:27 RDW 16.6 % (13.2-15.2) H 11/19/18 03:27 Plt Count 383 K/mm3 (140-440) 11/19/18 03:27 Lymph % (Auto) 12.2 % (13.4-35.0) L 11/19/18 03:27 [place] % (Auto) 4.9 % (0.0-7.3) 11/19/18 03:27 Eos % (Auto) 0.2 % (0.0-4.3) 11/19/18 03:27 Baso % (Auto) 0.6 % (0.0-1.8) 11/19/18 03:27 Lymph # 1.3 K/mm3 (1.2-5.4) 11/19/18 03:27 [place] # 0.5 K/mm3 (0.0-0.8) 11/19/18 03:27 Eos # 0.0 K/mm3 (0.0-0.4) 11/19/18 03:27 Baso # 0.1 K/mm3 (0.0-0.1) 11/19/18 03:27 Seg Neutrophils % 82.1 % (40.0-70.0) H 11/19/18 03:27 Seg Neutrophils # 8.9 K/mm3 (1.8-7.7) H 11/19/18 03:27 PT 13.1 Sec. (12.2-14.9) 11/19/18 04:48 INR 0.94 (0.87-1.13) 11/19/18 04:48 APTT 45.1 Sec. (24.2-36.6) H 11/19/18 04:48 Heparin Anti-Xa Level 1.10 U.I./ml (0.3-0.7) H 11/19/18 03:27 Sodium 140 mmol/L (137-145) 11/19/18 04:48 Potassium 3.5 mmol/L (3.6-5.0) L 11/19/18 04:48 Chloride 99.1 mmol/L (98-107) 11/19/18 04:48 Carbon Dioxide 31 mmol/L (22-30) H 11/19/18 04:48 Anion Gap 13 mmol/L 11/19/18 04:48 BUN 20 mg/dL (7-17) H 11/19/18 04:48 Creatinine 0.8 mg/dL (0.7-1.2) 11/19/18 04:48 Estimated GFR > 60 ml/min 11/19/18 04:48 BUN/Creatinine Ratio 25 % 11/19/18 04:48 Glucose 149 mg/dL (65-100) H 11/19/18 04:48 POC Glucose 147 (70-105) H 11/19/18 06:32 Hemoglobin A1c 17.7 % (4-6) H 11/17/18 09:04 Ketones Quantitative Small (Negative) 11/16/18 22:09 Calcium 8.6 mg/dL (8.4-10.2) 11/19/18 04:48 Phosphorus 4.80 mg/dL (2.5-4.5) H 11/17/18 00:39 Magnesium 1.60 mg/dL (1.7-2.3) L 11/19/18 03:27 Total Creatine Kinase 323 units/L (30-135) H 11/18/18 01:40 CK-MB (CK-2) 28.6 ng/mL (0.0-4.0) H 11/18/18 01:40 CK-MB (CK-2) Rel Index 8.8 (0-4) H 11/18/18 01:40 Troponin T 1.290 ng/mL (0.00-0.029) H* 11/18/18 01:40 NT-Pro-B Natriuret Pep 14110 pg/mL (0-900) H 11/16/18 22:09 Triglycerides 231 mg/dL (2-149) H 11/16/18 22:09 Cholesterol 176 mg/dL (50-199) 11/16/18 22:09 LDL Cholesterol Direct 106 mg/dL (50-130) 11/16/18 22:09 HDL Cholesterol 46 mg/dL (40-59) 11/16/18 22:09 Cholesterol/HDL Ratio 3.82 % 11/16/18 22:09
--- NOTE | 2018-11-19 12:26 | Progress Note ---
Assessment and Plan 63yo AAF: 1. Type 2 NSTEMI. 2. LV systolic dysfunction 3. Apical mural thrombus. 4. DKA. 5. Hypertension. 6. Hyperlipidemia. 7. h/o tobacco use cont asa/statin/bb/heparin Discussed options with pt. Will proceed w/ LHC in am given presentation and above findings. Pt is agreeable and understands risks/benefits/alternatives. Subjective Date of service: 11/19/18 Principal diagnosis: non-STEMI, DKA Interval history: feels better today no cp/sob/palp Objective Vital Signs Temp Pulse Pulse Resp BP BP Pulse Ox 11/19/18 10:45 79 155/71 11/19/18 08:35 79 16 100 11/19/18 07:37 98.4 F 79 18 155/71 100 11/19/18 05:12 74 177/77 11/19/18 05:07 18 11/19/18 05:01 97.6 F 74 20 177/77 99 11/19/18 00:04 97.7 F 70 20 157/77 100 11/18/18 23:49 77 16 97 11/18/18 23:00 98.3 F 58 L 16 176/73 176/73 98 11/18/18 22:41 63 11/18/18 22:00 69 14 163/72 98 11/18/18 21:58 47 L 11/18/18 21:51 62 15 164/74 97 11/18/18 21:41 75 14 164/74 95 11/18/18 21:31 73 14 164/74 95 11/18/18 21:21 78 16 164/74 94 11/18/18 21:11 72 16 164/74 97 11/18/18 21:00 75 13 164/74 96 11/18/18 20:51 77 12 165/78 98 11/18/18 20:41 79 15 165/78 98 11/18/18 20:31 81 18 165/78 99 11/18/18 20:21 71 14 165/78 99 11/18/18 20:16 99 11/18/18 20:10 74 26 H 165/78 100 11/18/18 20:00 75 14 165/78 97 11/18/18 19:51 75 13 161/66 99 11/18/18 19:41 60 17 161/66 99 11/18/18 19:30 63 17 161/66 99 11/18/18 19:21 76 14 161/66 99 11/18/18 19:11 73 15 161/66 100 11/18/18 19:00 57 L 15 161/66 97 11/18/18 18:51 75 15 150/57 99 11/18/18 18:41 79 14 140/57 98 11/18/18 18:31 75 15 140/57 98 11/18/18 18:20 77 15 150/57 97 11/18/18 18:11 66 13 150/57 98 11/18/18 18:00 56 L 15 150/57 94 11/18/18 17:51 74 18 140/57 98 11/18/18 17:41 77 16 140/57 99 11/18/18 17:31 83 14 140/57 98 11/18/18 17:21 72 17 140/57 99 11/18/18 17:11 51 L 15 140/57 98 11/18/18 17:00 73 16 140/57 95 11/18/18 16:51 71 16 143/55 98 11/18/18 16:41 64 15 143/55 97 11/18/18 16:31 70 14 143/55 97 11/18/18 16:21 79 22 143/55 97 11/18/18 16:11 72 15 143/55 96 11/18/18 16:00 57 L 13 143/55 94 11/18/18 15:51 83 16 149/60 99 11/18/18 15:41 82 16 149/60 98 11/18/18 15:31 74 16 149/60 97 11/18/18 15:21 66 15 149/60 97 11/18/18 15:11 73 20 149/60 96 11/18/18 15:01 74 18 149/60 94 11/18/18 14:51 85 23 189/95 95 11/18/18 14:41 75 17 189/95 94 11/18/18 14:31 77 20 189/95 96 11/18/18 14:21 73 14 189/95 96 11/18/18 14:19 72 189/95 11/18/18 14:15 65 189/95 11/18/18 14:11 86 17 189/95 96 11/18/18 13:00 100 - Physical Examination General: No Apparent Distress HEENT: Positive: Normocephaly, Mucus Membranes Moist Neck: Positive: neck supple, trachea midline. Negative: JVD/HJR Neuro: Positive: Grossly Intact Abdomen: Positive: Soft, Active Bowel Sounds. Negative: Organomegaly Extremities: Present: +1 Edema - Labs and Meds Coagulation 11/19/18 11/19/18 Range/Units 04:48 04:48 PT 13.1 (12.2-14.9) Sec. INR 0.94 (0.87-1.13) APTT 45.1 H (24.2-36.6) Sec. CBC 11/19/18 Range/Units 03:27 WBC 10.8 (4.5-11.0) K/mm3 RBC 5.25 H (3.65-5.03) M/mm3 Hgb 15.2 H (10.1-14.3) gm/dl Hct 47.4 H D (30.3-42.9) % Plt Count 383 (140-440) K/mm3 Lymph # 1.3 (1.2-5.4) K/mm3 [place] # 0.5 (0.0-0.8) K/mm3 Eos # 0.0 (0.0-0.4) K/mm3 Baso # 0.1 (0.0-0.1) K/mm3 Comprehensive Metabolic Panel 11/19/18 11/19/18 Range/Units 03:27 04:48 Sodium 138 140 (137-145) mmol/L Potassium 4.0 3.5 L (3.6-5.0) mmol/L Chloride 97.9 L 99.1 (98-107) mmol/L Carbon Dioxide 25 31 H (22-30) mmol/L BUN 20 H 20 H (7-17) mg/dL Creatinine 0.8 0.8 (0.7-1.2) mg/dL Glucose 173 H 149 H (65-100) mg/dL Calcium 9.3 8.6 (8.4-10.2) mg/dL - Imaging and Cardiology Echo: report reviewed, image reviewed (EF29%. Apical LV throbus 1x1.25cm) - EKG Sinus rhythms and dysrhythmias: sinus rhythm, sinus tachycardia Chamber hypertrophy or enlargement: left ventricular hypertro Repolarization changes or abnormalities: repolarization abn secondary to ventricular hypertrophy
[2018-11-19] MEDS ORDERED: MAGNESIUM SULFATE 2GM/50ML 2 GM/50 ML BAG IV ONE (12:30)
[2018-11-19] MEDS ORDERED: K-DUR PO ONE ×2 (12:31→14:36)
--- NOTE | 2018-11-19 14:19 | XRay Report ---
FINAL REPORT EXAM: XR CHEST 1V AP HISTORY: SOB TECHNIQUE: AP portable view of the chest PRIORS: None. FINDINGS: Lines, tubes, and devices: N/A Lungs and pleura: Trachea is normal in position. Lungs are clear of infiltrate, pleural effusion, vas cular congestion, or pneumothorax. Cardiomediastinal silhouette: Heart is moderately enlarged. Other: Bony structures are intact. IMPRESSION: No acute cardiopulmonary process seen. Cardiomegaly.
[2018-11-19] MEDS: HEPARIN/ 0.45% NACL-25,000 UNIT/500 ML 25,000 UNIT/500 ML BAG IV SCH (15:06)
--- NOTE | 2018-11-19 19:25 | Progress Note ---
Assessment and Plan Imp: 1. NSTEMI 2. Dilated CMP 3. LV thrombus 4. COPD exac. 5. Acute respiratory failure, hypoxia 6. s/p DKA Rec: 1. Scheduled Xopenex and Mucinex 2. Medium dose Solumedrol for wheezing, and monitor sugars closely 3. For LHC in AM 4. Ask RN to feed her until midnight, then NPO again 5. Heparin drip 6. Outpatient PFTs needed 7. Complex decision-making Plan of care reviewed w/ patient, she understands/agrees Subjective Date of service: 11/19/18 Principal diagnosis: non-STEMI, DKA Interval history: No events. On VM still. Still w/ SOB, wheezing, cough without sputum, congestion. No chest pain. C/o being hungry, has been NPO all day. Active Medications Acetaminophen (Tylenol) 650 mg PO Q4H PRN PRN Reason: Fever >101 Last Admin: 11/19/18 05:07 Dose: 650 mg Documented by: Aspirin (Aspirin) 325 mg PO QDAY [facility] Last Admin: 11/19/18 10:41 Dose: Not Given Documented by: Atorvastatin Calcium (Lipitor) 80 mg PO QHS [facility] Last Admin: 11/18/18 21:58 Dose: 80 mg Documented by: Budesonide (Pulmicort) 0.5 mg IH Q12HRT [facility] Dextrose (D50w (25gm) Syringe) 0 ml IV ONCE PRN PRN Reason: Hypoglycemia Furosemide (Lasix) 40 mg IV QDAY [facility] Last Admin: 11/19/18 10:45 Dose: 40 mg Documented by: Guaifenesin (Mucinex Er) 600 mg PO BID [facility] Hydralazine HCl (Apresoline) 10 mg IV Q4H PRN PRN Reason: Blood Pressure Last Admin: 11/18/18 14:19 Dose: 10 mg Documented by: Hydromorphone HCl (Dilaudid) 0.5 mg IV Q6H PRN PRN Reason: Pain, Moderate (4-6) Last Admin: 11/18/18 20:29 Dose: 0.5 mg Documented by: Heparin Sodium/Sodium Chloride (Heparin/ 0.45% Nacl-25,000 Unit/500 Ml) 25,000 unit in 500 mls @ 20 mls/hr IV TITRATE MEDARDO; Protocol Last Admin: 11/19/18 15:06 Dose: 800 units/hr, 16 mls/hr Documented by: Insulin Human Isoph/Insulin Regular (Humulin 70/30) 8 unit SUB-Q BIDDIAB [facility] Last Admin: 11/19/18 10:36 Dose: Not Given Documented by: Insulin Human Lispro (Humalog) 0 unit SUB-Q ACHS [facility]; Protocol Last Admin: 11/19/18 14:28 Dose: Not Given Documented by: Levalbuterol HCl (Xopenex) 0.63 mg IH QID [facility] Methylprednisolone Sodium Succinate (Solu-Medrol) 60 mg IV Q8HR [facility] Metoprolol Tartrate (Lopressor) 50 mg PO BID [facility] Last Admin: 11/19/18 10:41 Dose: Not Given Documented by: Nitroglycerin (Nitro-Bid 2%) 0.5 inch TP QIDNTG [facility]; Protocol Last Admin: 11/19/18 15:06 Dose: 0.5 inch Documented by: Ondansetron HCl (Zofran) 4 mg IV Q8H PRN PRN Reason: Nausea And Vomiting Objective Vital Signs - 12hr 11/19/18 11/19/18 11/19/18 07:37 08:35 10:45 Temperature 98.4 F Pulse Rate 79 79 Pulse Rate [ 79 Apical] Respiratory 18 16 Rate Blood Pressure 155/71 155/71 Blood Pressure [Left] O2 Sat by Pulse 100 100 Oximetry 11/19/18 11/19/18 14:31 16:05 Temperature 97.8 F Pulse Rate 93 H Pulse Rate [ Apical] Respiratory 20 Rate Blood Pressure Blood Pressure 182/87 [Left] O2 Sat by Pulse 100 97 Oximetry Constitutional: no acute distress, alert Eyes: non-icteric ENT: oropharynx moist Neck: supple Effort: mildly labored Ascultation: Bilateral: wheezes, rhonchi Cardiovascular: regular rate and rhythm (no mrg) Gastrointestinal: normoactive bowel sounds, non-distended Integumentary: normal Extremities: no cyanosis, edema (1+ bilateral LE edema) Neurologic: normal mental status, non-focal exam, pupils equal and round, CN II- XII normal Psychiatric: mood appropriate, affect normal CBC and BMP: 11/19/18 03:27 11/19/18 04:48 ABG, PT/INR, D-dimer: PT/INR, D-dimer PT 13.1 Sec. (12.2-14.9) 11/19/18 04:48 INR 0.94 (0.87-1.13) 11/19/18 04:48 Abnormal lab findings: Abnormal Labs 11/16/18 11/16/18 11/16/18 20:28 22:09 22:09 RBC Hgb Hct RDW 16.7 H Lymph % (Auto) 7.9 L [place] % (Auto) Lymph # 0.7 L [place] # Seg Neutrophils % 86.2 H Seg Neutrophils # 7.8 H APTT Heparin Anti-Xa Level Sodium 127 L Potassium Chloride 88.4 L Carbon Dioxide 19 L BUN 23 H Glucose 878 H* POC Glucose > 500 H Hemoglobin A1c Phosphorus Magnesium Total Creatine Kinase CK-MB (CK-2) CK-MB (CK-2) Rel Index Troponin T NT-Pro-B Natriuret Pep Triglycerides 11/16/18 11/16/18 11/16/18 22:09 22:09 23:34 RBC Hgb Hct RDW Lymph % (Auto) [place] % (Auto) Lymph # [place] # Seg Neutrophils % Seg Neutrophils # APTT 23.8 L Heparin Anti-Xa Level Sodium Potassium Chloride Carbon Dioxide BUN Glucose POC Glucose Hemoglobin A1c Phosphorus Magnesium Total Creatine Kinase CK-MB (CK-2) CK-MB (CK-2) Rel Index Troponin T 1.200 H* NT-Pro-B Natriuret Pep 89148 H Triglycerides 231 H 11/17/18 11/17/18 11/17/18 00:39 00:39 00:57 RBC Hgb Hct RDW Lymph % (Auto) [place] % (Auto) Lymph # [place] # Seg Neutrophils % Seg Neutrophils # APTT Heparin Anti-Xa Level Sodium 124 L Potassium Chloride 92.9 L Carbon Dioxide 15 L BUN 22 H Glucose 772 H* POC Glucose > 500 H Hemoglobin A1c Phosphorus 4.80 H Magnesium Total Creatine Kinase CK-MB (CK-2) CK-MB (CK-2) Rel Index Troponin T NT-Pro-B Natriuret Pep Triglycerides 11/17/18 11/17/18 11/17/18 02:13 02:28 03:10 RBC Hgb Hct RDW Lymph % (Auto) [place] % (Auto) Lymph # [place] # Seg Neutrophils % Seg Neutrophils # APTT Heparin Anti-Xa Level Sodium 131 L D Potassium Chloride 96.8 L Carbon Dioxide 20 L BUN 21 H Glucose 492 H POC Glucose 436 H 348 H Hemoglobin A1c Phosphorus Magnesium Total Creatine Kinase CK-MB (CK-2) CK-MB (CK-2) Rel Index Troponin T NT-Pro-B Natriuret Pep Triglycerides 11/17/18 11/17/18 11/17/18 04:10 06:08 06:08 RBC Hgb Hct RDW Lymph % (Auto) [place] % (Auto) Lymph # [place] # Seg Neutrophils % Seg Neutrophils # APTT Heparin Anti-Xa Level Sodium Potassium Chloride Carbon Dioxide BUN 21 H Glucose POC Glucose 319 H Hemoglobin A1c Phosphorus Magnesium Total Creatine Kinase 813 H CK-MB (CK-2) 77.1 H CK-MB (CK-2) Rel Index 9.4 H Troponin T 1.550 H* D NT-Pro-B Natriuret Pep Triglycerides 11/17/18 11/17/18 11/17/18 07:04 08:30 09:04 RBC Hgb Hct RDW Lymph % (Auto) [place] % (Auto) Lymph # [place] # Seg Neutrophils % Seg Neutrophils # APTT Heparin Anti-Xa Level Sodium Potassium Chloride Carbon Dioxide BUN 20 H Glucose 106 H POC Glucose 131 H 66 L Hemoglobin A1c Phosphorus Magnesium Total Creatine Kinase CK-MB (CK-2) CK-MB (CK-2) Rel Index Troponin T NT-Pro-B Natriuret Pep Triglycerides 11/17/18 11/17/18 11/17/18 09:04 09:04 11:50 RBC Hgb Hct RDW Lymph % (Auto) [place] % (Auto) Lymph # [place] # Seg Neutrophils % Seg Neutrophils # APTT Heparin Anti-Xa Level 1.06 H Sodium Potassium Chloride Carbon Dioxide BUN Glucose POC Glucose 201 H Hemoglobin A1c 17.7 H Phosphorus Magnesium Total Creatine Kinase CK-MB (CK-2) CK-MB (CK-2) Rel Index Troponin T NT-Pro-B Natriuret Pep Triglycerides 11/17/18 11/17/18 11/18/18 16:58 21:28 01:40 RBC Hgb Hct RDW Lymph % (Auto) [place] % (Auto) Lymph # [place] # Seg Neutrophils % Seg Neutrophils # APTT Heparin Anti-Xa Level Sodium Potassium Chloride Carbon Dioxide BUN 25 H Glucose POC Glucose 230 H 187 H Hemoglobin A1c Phosphorus Magnesium Total Creatine Kinase CK-MB (CK-2) CK-MB (CK-2) Rel Index Troponin T NT-Pro-B Natriuret Pep Triglycerides 11/18/18 11/18/18 11/18/18 01:40 04:49 04:49 RBC Hgb Hct RDW 16.2 H Lymph % (Auto) 12.8 L [place] % (Auto) 7.8 H Lymph # [place] # 0.9 H Seg Neutrophils % 78.1 H Seg Neutrophils # 8.6 H APTT Heparin Anti-Xa Level Sodium Potassium Chloride Carbon Dioxide BUN 24 H Glucose POC Glucose Hemoglobin A1c Phosphorus Magnesium Total Creatine Kinase 323 H CK-MB (CK-2) 28.6 H CK-MB (CK-2) Rel Index 8.8 H Troponin T 1.290 H* NT-Pro-B Natriuret Pep Triglycerides 11/18/18 11/18/18 11/18/18 12:03 16:53 21:49 RBC Hgb Hct RDW Lymph % (Auto) [place] % (Auto) Lymph # [place] # Seg Neutrophils % Seg Neutrophils # APTT Heparin Anti-Xa Level Sodium Potassium Chloride Carbon Dioxide BUN Glucose POC Glucose 140 H 199 H 120 H Hemoglobin A1c Phosphorus Magnesium Total Creatine Kinase CK-MB (CK-2) CK-MB (CK-2) Rel Index Troponin T NT-Pro-B Natriuret Pep Triglycerides 11/18/18 11/19/18 11/19/18 23:06 03:27 03:27 RBC 5.25 H Hgb 15.2 H Hct 47.4 H D RDW 16.6 H Lymph % (Auto) 12.2 L [place] % (Auto) Lymph # [place] # Seg Neutrophils % 82.1 H Seg Neutrophils # 8.9 H APTT Heparin Anti-Xa Level Sodium Potassium Chloride 97.9 L Carbon Dioxide BUN 20 H Glucose 173 H POC Glucose 121 H Hemoglobin A1c Phosphorus Magnesium 1.60 L Total Creatine Kinase CK-MB (CK-2) CK-MB (CK-2) Rel Index Troponin T NT-Pro-B Natriuret Pep Triglycerides 11/19/18 11/19/18 11/19/18 03:27 04:48 04:48 RBC Hgb Hct RDW Lymph % (Auto) [place] % (Auto) Lymph # [place] # Seg Neutrophils % Seg Neutrophils # APTT 45.1 H Heparin Anti-Xa Level 1.10 H Sodium Potassium 3.5 L Chloride Carbon Dioxide 31 H BUN 20 H Glucose 149 H POC Glucose Hemoglobin A1c Phosphorus Magnesium Total Creatine Kinase CK-MB (CK-2) CK-MB (CK-2) Rel Index Troponin T NT-Pro-B Natriuret Pep Triglycerides 11/19/18 11/19/18 11/19/18 06:32 11:54 17:21 RBC Hgb Hct RDW Lymph % (Auto) [place] % (Auto) Lymph # [place] # Seg Neutrophils % Seg Neutrophils # APTT Heparin Anti-Xa Level Sodium Potassium Chloride Carbon Dioxide BUN Glucose POC Glucose 147 H 186 H 190 H Hemoglobin A1c Phosphorus Magnesium Total Creatine Kinase CK-MB (CK-2) CK-MB (CK-2) Rel Index Troponin T NT-Pro-B Natriuret Pep Triglycerides Chest x-ray: report reviewed, image reviewed (cardiomegaly, clear lungs)
[2018-11-19] MEDS: PULMICORT IH SCH (20:43)
[2018-11-19] MEDS: XOPENEX IH SCH ×2 (20:44→21:13)
[2018-11-19] MEDS ORDERED: SOLU-Medrol IV SCH (22:00)
[2018-11-19] MEDS: MUCINEX ER PO SCH (22:56)
[2018-11-19] MEDS: SOLU-Medrol IV SCH (22:58)
[2018-11-20 06:10] LABS: Hematocrit 40.8 % (30.3-42.9)
[2018-11-20] MEDS: SOLU-Medrol IV SCH ×3 (06:50→22:08)
[2018-11-20] MEDS: HumaLOG SUB-Q SCH ×5 (06:54→21:49)
[2018-11-20] MEDS ORDERED: NACL 0.9% 500 ML 500 ML ONE (08:09)
[2018-11-20] MEDS ORDERED: ECOTRIN PO ONE ×2 (08:09→08:16)
[2018-11-20] MEDS ORDERED: HEPARIN/NS 5000 UNIT/500ML(CATH LAB) 1,000 ML IR ONE (08:19)
[2018-11-20] MEDS ORDERED: NACL 0.9% 500 ML 500 ML IV SCH (08:30)
[2018-11-20] MEDS: NITROGLYCERIN SYRINGE 3 ML ONE ×2 (08:41→08:49)
[2018-11-20] MEDS: XYLOCAINE 2% INFILTRATI ONE ×2 (08:42→08:48)
[2018-11-20] MEDS: HEPARIN 10,000 UNITS/10 ML ONE ×2 (08:42→08:49)
[2018-11-20] MEDS: CALAN ONE ×2 (08:42→08:49)
[2018-11-20] MEDS ORDERED: LASIX ONE (08:57)
[2018-11-20] MEDS: APRESOLINE IV ONE ×2 (09:00→09:29)
--- NOTE | 2018-11-20 09:21 | Progress Note ---
Assessment and Plan acute respiratory failure acute systolic heart failure nstemi type 2 htn uncontrolled dm un controllred apical thrombus hypercougable state chol rec: non ischemic cardiomyopathy, lovenox 1mg kg q12 with coumadin, bridging, add kirk, and aldactone and hydralzine and imdur for bp control and daily lasix to wean off o2, discuss with pt and daughter in detail. Subjective Date of service: 11/20/18 Principal diagnosis: non-STEMI, DKA Interval history: pt has no chest pain Objective Vital Signs Temp Pulse Pulse Resp Resp BP BP 11/20/18 07:34 97.8 F 89 20 207/93 11/20/18 03:40 98.0 F 80 18 176/87 11/20/18 00:11 98.0 F 89 20 167/87 11/19/18 22:57 109 H 178/78 11/19/18 22:00 88 18 11/19/18 21:01 95 H 20 11/19/18 20:48 11/19/18 20:46 93 H 20 11/19/18 19:41 98.0 F 109 H 18 178/78 11/19/18 16:05 97.8 F 93 H 20 182/87 11/19/18 14:31 11/19/18 10:45 79 155/71 Pulse Ox 11/20/18 07:34 100 11/20/18 03:40 100 11/20/18 00:11 100 11/19/18 22:57 11/19/18 22:00 100 11/19/18 21:01 11/19/18 20:48 100 11/19/18 20:46 11/19/18 19:41 95 11/19/18 16:05 97 11/19/18 14:31 100 11/19/18 10:45 - Physical Examination General: No Apparent Distress HEENT: Positive: Normocephaly, Mucus Membranes Moist Neck: Positive: neck supple, trachea midline. Negative: JVD/HJR Cardiac: Positive: Reg Rate and Rhythm Lungs: Positive: Decreased Breath Sounds Neuro: Positive: Grossly Intact Abdomen: Positive: Soft, Active Bowel Sounds. Negative: Organomegaly Extremities: Absent: edema - Labs and Meds CBC 11/20/18 Range/Units 05:07 Hgb 13.0 (10.1-14.3) gm/dl Hct 40.8 D (30.3-42.9) % Plt Count 324 (140-440) K/mm3 - Imaging and Cardiology Echo: report reviewed, image reviewed (EF29%. Apical LV throbus 1x1.25cm) Cardiac cath: report reviewed (lt main patent, lad patent, lcx patent and rca patent ) - Telemetry EKG Rhythm: Sinus Rhythm - EKG Sinus rhythms and dysrhythmias: sinus rhythm, sinus tachycardia Chamber hypertrophy or enlargement: left ventricular hypertro Repolarization changes or abnormalities: repolarization abn secondary to ventricular hypertrophy
--- NOTE | 2018-11-20 09:24 | Cardiac Catherization Report ---
LEFT HEART CATHETERIZATION CLINICAL INFORMATION: This is a 63-year-old -[place] female, noncompliant with uncontrolled diabetes, hypertension, acute congestive heart failure, cardiomyopathy with an echocardiogram shows EF of 20-25% with apical thrombus. The patient has been stabilized, is here for left heart catheterization to rule out coronary artery disease. 1. No sedation. 2. Left heart catheterization was done via the right radial artery, sterile technique, local anesthesia, 6-Romanian radial sheath inserted. 3. Left system engaged with a JL3.5 catheter. Left main large and patent. LAD is a large caliber vessel, patent from proximally and distally. Diagonal 1, diagonal 2 are medium caliber vessel. Circumflex is a medium to large caliber vessel that is patent. OM1 and OM2 are medium caliber vessel that is patent. RCA is engaged with JR4 catheter, large, dominant vessel, patent from proximally and distally. PDA and PLV [id number] caliber vessel, patent. No LV gram done, but on echo, EF is 20-25% with apical thrombus. 4. Aortic pressure is 183/89. 5. A 5-Romanian catheters were taken over guidewire, 6-Romanian radial sheath was discontinued. Radial band applied. No hematoma, no bleeding. SUMMARY: Patent coronaries, left main patent, LAD patent, circ patent, RCA patent with severe LV dysfunction on echocardiogram, this is nonischemic cardiomyopathy. Discussed this with the patient and the patient's daughter in detail and medical management. JOB# [id number] KORINA/NATHAN
[2018-11-20] MEDS: TYLENOL PO PRN ×2 (10:10→11:35)
[2018-11-20] MEDS ORDERED: TYLENOL ONE (10:12)
[2018-11-20] MEDS: XOPENEX IH SCH ×5 (11:20→22:00)
[2018-11-20] MEDS: PULMICORT IH SCH ×3 (11:20→19:18)
[2018-11-20] MEDS: ZESTRIL PO SCH ×2 (11:30→21:43)
[2018-11-20] MEDS: LOPRESSOR PO SCH ×2 (11:34→22:09)
[2018-11-20] MEDS: IMDUR PO SCH (11:34)
[2018-11-20] MEDS: ALDACTONE PO SCH (11:35)
[2018-11-20] MEDS: MUCINEX ER PO SCH ×2 (11:36→21:43)
[2018-11-20] MEDS: LOVENOX SUB-Q SCH ×2 (11:36→21:43)
[2018-11-20] MEDS: LASIX IV SCH (11:36)
[2018-11-20] MEDS: DILAUDID IV PRN (11:37)
--- NOTE | 2018-11-20 15:17 | Progress Note ---
Assessment and Plan Imp: 1. NSTEMI 2. 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 LV thrombus 4. COPD exac. 5. Acute respiratory failure, hypoxia 6. s/p DKA Rec: 1. Scheduled Xopenex and Mucinex 2. Medium dose Solumedrol for wheezing, and monitor sugars closely 3. Anticoagulation per cardiology 4. Outpatient PFTs needed 5. Wean O2; needs home O2 eval. prior to d/c Plan of care reviewed w/ patient, she understands/agrees Subjective Date of service: 11/20/18 Principal diagnosis: non-STEMI, DKA Interval history: s/p LHC. SOB better. Still wheezing. No new complaints. Now on NC. Active Medications Acetaminophen (Tylenol) 650 mg PO Q4H PRN PRN Reason: Fever >101 Last Admin: 11/20/18 11:35 Dose: 650 mg Documented by: Atorvastatin Calcium (Lipitor) 80 mg PO QHS [facility] Last Admin: 11/19/18 22:56 Dose: 80 mg Documented by: Budesonide (Pulmicort) 0.5 mg IH Q12HRT [facility] Last Admin: 11/20/18 13:01 Dose: 0.5 mg Documented by: Dextrose (D50w (25gm) Syringe) 0 ml IV ONCE PRN PRN Reason: Hypoglycemia Enoxaparin Sodium (Lovenox) 60 mg 1 mg/kg (60 mg) SUB-Q Q12HR [facility] Last Admin: 11/20/18 11:36 Dose: 60 mg Documented by: Furosemide (Lasix) 40 mg IV QDAY [facility] Last Admin: 11/20/18 11:36 Dose: 40 mg Documented by: Guaifenesin (Mucinex Er) 600 mg PO BID [facility] Last Admin: 11/20/18 11:36 Dose: 600 mg Documented by: Hydralazine HCl (Apresoline) 10 mg IV Q4H PRN PRN Reason: Blood Pressure Last Admin: 11/18/18 14:19 Dose: 10 mg Documented by: Hydralazine HCl (Apresoline) 25 mg PO Q8HR [facility] Hydromorphone HCl (Dilaudid) 0.5 mg IV Q6H PRN PRN Reason: Pain, Moderate (4-6) Last Admin: 11/20/18 11:37 Dose: 0.5 mg Documented by: Insulin Human Isoph/Insulin Regular (Humulin 70/30) 8 unit SUB-Q BIDDIAB [facility] Last Admin: 11/19/18 10:36 Dose: Not Given Documented by: Insulin Human Lispro (Humalog) 0 unit SUB-Q ACHS [facility]; Protocol Last Admin: 11/20/18 11:32 Dose: 10 unit Documented by: Isosorbide Mononitrate (Imdur) 30 mg PO QDAY [facility] Last Admin: 11/20/18 11:34 Dose: 30 mg Documented by: Levalbuterol HCl (Xopenex) 0.63 mg IH QID [facility] Last Admin: 11/20/18 13:00 Dose: 0.63 mg Documented by: Lisinopril (Zestril) 20 mg PO BID [facility] Methylprednisolone Sodium Succinate (Solu-Medrol) 40 mg IV Q8HR [facility] Last Admin: 11/20/18 06:50 Dose: 40 mg Documented by: Metoprolol Tartrate (Lopressor) 50 mg PO BID [facility] Last Admin: 11/20/18 11:34 Dose: 50 mg Documented by: Ondansetron HCl (Zofran) 4 mg IV Q8H PRN PRN Reason: Nausea And Vomiting Spironolactone (Aldactone) 25 mg PO QDAY [facility] Last Admin: 11/20/18 11:35 Dose: 25 mg Documented by: Warfarin Sodium (Coumadin) 7.5 mg PO DAILY@1700 [facility] Objective Vital Signs - 12hr 11/20/18 11/20/18 11/20/18 03:40 07:34 09:30 Temperature 98.0 F 97.8 F 98.4 F Pulse Rate 80 89 88 Pulse Rate [ Anterior Bilateral Throughout] Respiratory 18 20 19 Rate Respiratory Rate [Anterior Bilateral Throughout] Blood Pressure 176/87 160/66 Blood Pressure 207/93 [Left] O2 Sat by Pulse 100 100 95 Oximetry 11/20/18 11/20/18 11/20/18 09:45 10:00 10:15 Temperature Pulse Rate 85 82 77 Pulse Rate [ Anterior Bilateral Throughout] Respiratory 23 20 18 Rate Respiratory Rate [Anterior Bilateral Throughout] Blood Pressure 168/69 170/74 161/65 Blood Pressure [Left] O2 Sat by Pulse 95 92 91 Oximetry 11/20/18 11/20/18 11/20/18 10:30 11:34 11:40 Temperature Pulse Rate 2 L 87 Pulse Rate [ Anterior Bilateral Throughout] Respiratory 16 Rate Respiratory Rate [Anterior Bilateral Throughout] Blood Pressure 140/60 177/72 Blood Pressure [Left] O2 Sat by Pulse 95 95 Oximetry 11/20/18 11/20/18 11/20/18 12:38 12:47 13:07 Temperature Pulse Rate Pulse Rate [ 93 H Anterior Bilateral Throughout] Respiratory Rate Respiratory 16 Rate [Anterior Bilateral Throughout] Blood Pressure Blood Pressure [Left] O2 Sat by Pulse 100 96 Oximetry 11/20/18 11/20/18 13:16 14:50 Temperature Pulse Rate 80 Pulse Rate [ 86 Anterior Bilateral Throughout] Respiratory Rate Respiratory 16 Rate [Anterior Bilateral Throughout] Blood Pressure Blood Pressure [Left] O2 Sat by Pulse Oximetry Constitutional: no acute distress, alert Eyes: non-icteric ENT: oropharynx moist Neck: supple Effort: normal Ascultation: Bilateral: wheezes Cardiovascular: regular rate and rhythm (no mrg) Gastrointestinal: normoactive bowel sounds, non-distended Integumentary: normal Extremities: no cyanosis, edema (1+ bilateral LE edema) Neurologic: normal mental status, non-focal exam, pupils equal and round, CN II- XII normal Psychiatric: mood appropriate, affect normal CBC and BMP: 11/20/18 05:07 11/19/18 04:48 ABG, PT/INR, D-dimer: PT/INR, D-dimer PT 13.1 Sec. (12.2-14.9) 11/19/18 04:48 INR 0.94 (0.87-1.13) 11/19/18 04:48 Abnormal lab findings: Abnormal Labs 11/16/18 11/16/18 11/16/18 20:28 22:09 22:09 RBC Hgb Hct RDW 16.7 H Lymph % (Auto) 7.9 L [place] % (Auto) Lymph # 0.7 L [place] # Seg Neutrophils % 86.2 H Seg Neutrophils # 7.8 H APTT Heparin Anti-Xa Level Sodium 127 L Potassium Chloride 88.4 L Carbon Dioxide 19 L BUN 23 H Glucose 878 H* POC Glucose > 500 H Hemoglobin A1c Phosphorus Magnesium Total Creatine Kinase CK-MB (CK-2) CK-MB (CK-2) Rel Index Troponin T NT-Pro-B Natriuret Pep Triglycerides 11/16/18 11/16/18 11/16/18 22:09 22:09 23:34 RBC Hgb Hct RDW Lymph % (Auto) [place] % (Auto) Lymph # [place] # Seg Neutrophils % Seg Neutrophils # APTT 23.8 L Heparin Anti-Xa Level Sodium Potassium Chloride Carbon Dioxide BUN Glucose POC Glucose Hemoglobin A1c Phosphorus Magnesium Total Creatine Kinase CK-MB (CK-2) CK-MB (CK-2) Rel Index Troponin T 1.200 H* NT-Pro-B Natriuret Pep 26618 H Triglycerides 231 H 11/17/18 11/17/18 11/17/18 00:39 00:39 00:57 RBC Hgb Hct RDW Lymph % (Auto) [place] % (Auto) Lymph # [place] # Seg Neutrophils % Seg Neutrophils # APTT Heparin Anti-Xa Level Sodium 124 L Potassium Chloride 92.9 L Carbon Dioxide 15 L BUN 22 H Glucose 772 H* POC Glucose > 500 H Hemoglobin A1c Phosphorus 4.80 H Magnesium Total Creatine Kinase CK-MB (CK-2) CK-MB (CK-2) Rel Index Troponin T NT-Pro-B Natriuret Pep Triglycerides 11/17/18 11/17/18 11/17/18 02:13 02:28 03:10 RBC Hgb Hct RDW Lymph % (Auto) [place] % (Auto) Lymph # [place] # Seg Neutrophils % Seg Neutrophils # APTT Heparin Anti-Xa Level Sodium 131 L D Potassium Chloride 96.8 L Carbon Dioxide 20 L BUN 21 H Glucose 492 H POC Glucose 436 H 348 H Hemoglobin A1c Phosphorus Magnesium Total Creatine Kinase CK-MB (CK-2) CK-MB (CK-2) Rel Index Troponin T NT-Pro-B Natriuret Pep Triglycerides 11/17/18 11/17/18 11/17/18 04:10 06:08 06:08 RBC Hgb Hct RDW Lymph % (Auto) [place] % (Auto) Lymph # [place] # Seg Neutrophils % Seg Neutrophils # APTT Heparin Anti-Xa Level Sodium Potassium Chloride Carbon Dioxide BUN 21 H Glucose POC Glucose 319 H Hemoglobin A1c Phosphorus Magnesium Total Creatine Kinase 813 H CK-MB (CK-2) 77.1 H CK-MB (CK-2) Rel Index 9.4 H Troponin T 1.550 H* D NT-Pro-B Natriuret Pep Triglycerides 11/17/18 11/17/18 11/17/18 07:04 08:30 09:04 RBC Hgb Hct RDW Lymph % (Auto) [place] % (Auto) Lymph # [place] # Seg Neutrophils % Seg Neutrophils # APTT Heparin Anti-Xa Level Sodium Potassium Chloride Carbon Dioxide BUN 20 H Glucose 106 H POC Glucose 131 H 66 L Hemoglobin A1c Phosphorus Magnesium Total Creatine Kinase CK-MB (CK-2) CK-MB (CK-2) Rel Index Troponin T NT-Pro-B Natriuret Pep Triglycerides 11/17/18 11/17/18 11/17/18 09:04 09:04 11:50 RBC Hgb Hct RDW Lymph % (Auto) [place] % (Auto) Lymph # [place] # Seg Neutrophils % Seg Neutrophils # APTT Heparin Anti-Xa Level 1.06 H Sodium Potassium Chloride Carbon Dioxide BUN Glucose POC Glucose 201 H Hemoglobin A1c 17.7 H Phosphorus Magnesium Total Creatine Kinase CK-MB (CK-2) CK-MB (CK-2) Rel Index Troponin T NT-Pro-B Natriuret Pep Triglycerides 11/17/18 11/17/18 11/18/18 16:58 21:28 01:40 RBC Hgb Hct RDW Lymph % (Auto) [place] % (Auto) Lymph # [place] # Seg Neutrophils % Seg Neutrophils # APTT Heparin Anti-Xa Level Sodium Potassium Chloride Carbon Dioxide BUN 25 H Glucose POC Glucose 230 H 187 H Hemoglobin A1c Phosphorus Magnesium Total Creatine Kinase CK-MB (CK-2) CK-MB (CK-2) Rel Index Troponin T NT-Pro-B Natriuret Pep Triglycerides 11/18/18 11/18/18 11/18/18 01:40 04:49 04:49 RBC Hgb Hct RDW 16.2 H Lymph % (Auto) 12.8 L [place] % (Auto) 7.8 H Lymph # [place] # 0.9 H Seg Neutrophils % 78.1 H Seg Neutrophils # 8.6 H APTT Heparin Anti-Xa Level Sodium Potassium Chloride Carbon Dioxide BUN 24 H Glucose POC Glucose Hemoglobin A1c Phosphorus Magnesium Total Creatine Kinase 323 H CK-MB (CK-2) 28.6 H CK-MB (CK-2) Rel Index 8.8 H Troponin T 1.290 H* NT-Pro-B Natriuret Pep Triglycerides 11/18/18 11/18/18 11/18/18 12:03 16:53 21:49 RBC Hgb Hct RDW Lymph % (Auto) [place] % (Auto) Lymph # [place] # Seg Neutrophils % Seg Neutrophils # APTT Heparin Anti-Xa Level Sodium Potassium Chloride Carbon Dioxide BUN Glucose POC Glucose 140 H 199 H 120 H Hemoglobin A1c Phosphorus Magnesium Total Creatine Kinase CK-MB (CK-2) CK-MB (CK-2) Rel Index Troponin T NT-Pro-B Natriuret Pep Triglycerides 11/18/18 11/19/18 11/19/18 23:06 03:27 03:27 RBC 5.25 H Hgb 15.2 H Hct 47.4 H D RDW 16.6 H Lymph % (Auto) 12.2 L [place] % (Auto) Lymph # O[place] # Seg Neutrophils % 82.1 H Seg Neutrophils # 8.9 H APTT Heparin Anti-Xa Level Sodium Potassium Chloride 97.9 L Carbon Dioxide BUN 20 H Glucose 173 H POC Glucose 121 H Hemoglobin A1c Phosphorus Magnesium 1.60 L Total Creatine Kinase CK-MB (CK-2) CK-MB (CK-2) Rel Index Troponin T NT-Pro-B Natriuret Pep Triglycerides 11/19/18 11/19/18 11/19/18 03:27 04:48 04:48 RBC Hgb Hct RDW Lymph % (Auto) [place] % (Auto) Lymph # [place] # Seg Neutrophils % Seg Neutrophils # APTT 45.1 H Heparin Anti-Xa Level 1.10 H Sodium Potassium 3.5 L Chloride Carbon Dioxide 31 H BUN 20 H Glucose 149 H POC Glucose Hemoglobin A1c Phosphorus Magnesium Total Creatine Kinase CK-MB (CK-2) CK-MB (CK-2) Rel Index Troponin T NT-Pro-B Natriuret Pep Triglycerides 11/19/18 11/19/18 11/19/18 06:32 11:54 17:21 RBC Hgb Hct RDW Lymph % (Auto) [place] % (Auto) Lymph # O'Brien # Seg Neutrophils % Seg Neutrophils # APTT Heparin Anti-Xa Level Sodium Potassium Chloride Carbon Dioxide BUN Glucose POC Glucose 147 H 186 H 190 H Hemoglobin A1c Phosphorus Magnesium Total Creatine Kinase CK-MB (CK-2) CK-MB (CK-2) Rel Index Troponin T NT-Pro-B Natriuret Pep Triglycerides 11/19/18 11/20/18 11/20/18 21:18 06:24 08:05 RBC Hgb Hct RDW Lymph % (Auto) [place] % (Auto) Lymph # O'Brien # Seg Neutrophils % Seg Neutrophils # APTT Heparin Anti-Xa Level Sodium Potassium Chloride Carbon Dioxide BUN Glucose POC Glucose 298 H 339 H 300 H Hemoglobin A1c Phosphorus Magnesium Total Creatine Kinase CK-MB (CK-2) CK-MB (CK-2) Rel Index Troponin T NT-Pro-B Natriuret Pep Triglycerides Chest x-ray: report reviewed, image reviewed (clear lungs)
[2018-11-20] MEDS: APRESOLINE PO SCH ×2 (16:02→21:43)
[2018-11-20] MEDS: COUMADIN PO SCH (17:57)
--- NOTE | 2018-11-20 19:26 | Progress Note ---
Assessment and Plan Assessment and plan: s/p Heart cath today; Patent coronary arteries left main patent LAD patent circumflex patent RCA patent with severe LV dysfunction with EF 20-25% Nonischemic cardiomyopathy, medical management --Hypokalemia : replaced with kcl --Hypo magnessemia: replace per protocol --Non-ST elevation NM; serial cardiac enzymes, aspirin and beta blockers kirk inhibitors nitrates and statins, Cardiology following, continue heparin drip,Cath neg --Diabetic ketoacidosis/hyperosmolar state;s/p insulin drip On long-acting insulin now, blood sugars reasonable level, ADA diet, long-acting insulin, diabetic education, nutrition education --Hypertensive urgency; present on admission, patient blood pressures reasonable level Continue current antihypertensives and when necessary medications -- Acute Systolic congestive heart failure;EF 20-25% IV diuretics, Beta blockers ,kirk inhibitors, input output monitoring Low-sodium diet, fluid restriction, daily weights --Dyslipidemia; continue statin --DVT prophylaxis ; patient is already on heparin drip --Full CODE STATUS plan of care is reviewed with the patient and her nurse Possible discharge in 1-2 days if stable History Interval history: Patient seen and examined medical records reviewed Patient underwent heart catheterization today which was negative Nonischemic cardiomyopathy Patient feels better blood sugars uncontrolled Vital signs noted Hospitalist Physical - Constitutional Vitals: Temp Pulse Resp BP Pulse Ox 97.4 F L 81 18 151/69 100 11/20/18 16:23 11/20/18 19:21 11/20/18 19:21 11/20/18 16:23 11/20/18 19:22 General appearance: Present: no acute distress, well-nourished - EENT Eyes: Present: PERRL, EOM intact - Neck Neck: Present: supple, normal ROM - Respiratory Respiratory effort: normal Respiratory: bilateral: diminished, rales, negative: rhonchi, wheezing - Cardiovascular Rhythm: regular Heart Sounds: Present: S1 & S2 - Extremities Extremities: no ischemia, pulses intact - Abdominal General gastrointestinal: soft, non-tender, non-distended, normal bowel sounds - Integumentary Integumentary: Present: clear, warm - Psychiatric Psychiatric: appropriate mood/affect, cooperative - Neurologic Neurologic: CNII-XII intact, moves all extremities Results - Labs CBC & Chem 7: 11/20/18 05:07 11/19/18 04:48 Labs: Laboratory Last Values WBC 10.8 K/mm3 (4.5-11.0) 11/19/18 03:27 RBC 5.25 M/mm3 (3.65-5.03) H 11/19/18 03:27 Hgb 13.0 gm/dl (10.1-14.3) 11/20/18 05:07 Hct 40.8 % (30.3-42.9) D 11/20/18 05:07 MCV 91 fl (79-97) 11/19/18 03:27 MCH 29 pg (28-32) 11/19/18 03:27 MCHC 32 % (30-34) 11/19/18 03:27 RDW 16.6 % (13.2-15.2) H 11/19/18 03:27 Plt Count 324 K/mm3 (140-440) 11/20/18 05:07 Lymph % (Auto) 12.2 % (13.4-35.0) L 11/19/18 03:27 [place] % (Auto) 4.9 % (0.0-7.3) 11/19/18 03:27 Eos % (Auto) 0.2 % (0.0-4.3) 11/19/18 03:27 Baso % (Auto) 0.6 % (0.0-1.8) 11/19/18 03:27 Lymph # 1.3 K/mm3 (1.2-5.4) 11/19/18 03:27 [place] # 0.5 K/mm3 (0.0-0.8) 11/19/18 03:27 Eos # 0.0 K/mm3 (0.0-0.4) 11/19/18 03:27 Baso # 0.1 K/mm3 (0.0-0.1) 11/19/18 03:27 Seg Neutrophils % 82.1 % (40.0-70.0) H 11/19/18 03:27 Seg Neutrophils # 8.9 K/mm3 (1.8-7.7) H 11/19/18 03:27 PT 13.1 Sec. (12.2-14.9) 11/19/18 04:48 INR 0.94 (0.87-1.13) 11/19/18 04:48 APTT 45.1 Sec. (24.2-36.6) H 11/19/18 04:48 Heparin Anti-Xa Level 0.41 U.I./ml (0.3-0.7) 11/19/18 22:42 Sodium 140 mmol/L (137-145) 11/19/18 04:48 Potassium 3.5 mmol/L (3.6-5.0) L 11/19/18 04:48 Chloride 99.1 mmol/L (98-107) 11/19/18 04:48 Carbon Dioxide 31 mmol/L (22-30) H 11/19/18 04:48 Anion Gap 13 mmol/L 11/19/18 04:48 BUN 20 mg/dL (7-17) H 11/19/18 04:48 Creatinine 0.8 mg/dL (0.7-1.2) 11/19/18 04:48 Estimated GFR > 60 ml/min 11/19/18 04:48 BUN/Creatinine Ratio 25 % 11/19/18 04:48 Glucose 149 mg/dL (65-100) H 11/19/18 04:48 POC Glucose 300 (70-105) H 11/20/18 08:05 Hemoglobin A1c 17.7 % (4-6) H 11/17/18 09:04 Ketones Quantitative Small (Negative) 11/16/18 22:09 Calcium 8.6 mg/dL (8.4-10.2) 11/19/18 04:48 Phosphorus 4.80 mg/dL (2.5-4.5) H 11/17/18 00:39 Magnesium 1.60 mg/dL (1.7-2.3) L 11/19/18 03:27 Total Creatine Kinase 323 units/L (30-135) H 11/18/18 01:40 CK-MB (CK-2) 28.6 ng/mL (0.0-4.0) H 11/18/18 01:40 CK-MB (CK-2) Rel Index 8.8 (0-4) H 11/18/18 01:40 Troponin T 1.290 ng/mL (0.00-0.029) H* 11/18/18 01:40 NT-Pro-B Natriuret Pep 66030 pg/mL (0-900) H 11/16/18 22:09 Triglycerides 231 mg/dL (2-149) H 11/16/18 22:09 Cholesterol 176 mg/dL (50-199) 11/16/18 22:09 LDL Cholesterol Direct 106 mg/dL (50-130) 11/16/18 22:09 HDL Cholesterol 46 mg/dL (40-59) 11/16/18 22:09 Cholesterol/HDL Ratio 3.82 % 11/16/18 22:09
[2018-11-21] MEDS: SOLU-Medrol IV SCH ×3 (05:26→22:33)
[2018-11-21] MEDS: APRESOLINE PO SCH ×4 (05:26→22:36)
[2018-11-21] MEDS: TYLENOL PO PRN ×2 (05:28→17:30)
[2018-11-21 05:39] LABS: INR 0.98 (0.87-1.13)
[2018-11-21 05:53] LABS: BUN/Creatinine Ratio 21; Blood Urea Nitrogen 17 mg/dL (7-17); Hemolysis Index 13
[2018-11-21] MEDS ORDERED: SOLU-Medrol IV SCH (08:22)
[2018-11-21] MEDS: PULMICORT IH SCH ×2 (09:24→22:31)
[2018-11-21] MEDS: XOPENEX IH SCH ×4 (09:24→22:32)
[2018-11-21] MEDS: ASPIRIN PO SCH (09:43)
[2018-11-21] MEDS: NITRO-BID 2% TP SCH (09:43)
[2018-11-21] MEDS ORDERED: NON-FORMULARY (Diazepam [Valium] 10 MG) PO PRN (10:12)
[2018-11-21] MEDS: LOVENOX SUB-Q SCH ×2 (10:20→22:33)
[2018-11-21] MEDS: ALDACTONE PO SCH (10:21)
[2018-11-21] MEDS: MUCINEX ER PO SCH ×2 (10:21→22:35)
[2018-11-21] MEDS: LASIX IV SCH (10:21)
[2018-11-21] MEDS: IMDUR PO SCH (10:21)
[2018-11-21] MEDS: ZESTRIL PO SCH ×2 (10:21→22:35)
[2018-11-21] MEDS: HumaLOG SUB-Q SCH ×4 (10:22→22:36)
[2018-11-21] MEDS: LOPRESSOR PO SCH ×2 (10:22→22:34)
--- NOTE | 2018-11-21 10:48 | Progress Note ---
Assessment and Plan Imp: 1. NSTEMI 2. 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 LV thrombus 4. COPD exac. 5. Acute respiratory failure, hypoxia 6. s/p DKA Rec: 1. Scheduled Xopenex and Mucinex 2. Decrease Solumedrol given hyperglycemia 3. Anticoagulation per cardiology 4. Outpatient PFTs needed 5. Wean O2; needs home O2 eval. prior to d/c 6. Has persistent throat/chest congestion that she cannot clear; would give her Zithromax 500mg x 5 days Plan of care reviewed w/ patient, she understands/agrees Subjective Date of service: 11/21/18 Principal diagnosis: non-STEMI, DKA Interval history: s/p LHC. SOB better. Still wheezing. Has a lot of congestion that she cannot cough up, states the mucous is foul tasting. No new complaints. Now on NC. Active Medications Acetaminophen (Tylenol) 650 mg PO Q4H PRN PRN Reason: Fever >101 Last Admin: 11/21/18 05:28 Dose: 650 mg Documented by: Atorvastatin Calcium (Lipitor) 80 mg PO QHS [facility] Last Admin: 11/20/18 21:43 Dose: 80 mg Documented by: Azithromycin (Zithromax) 500 mg PO QDAY [facility] Stop: 11/25/18 10:01 Budesonide (Pulmicort) 0.5 mg IH Q12HRT [facility] Last Admin: 11/21/18 09:24 Dose: 0.5 mg Documented by: Dextrose (D50w (25gm) Syringe) 0 ml IV ONCE PRN PRN Reason: Hypoglycemia Enoxaparin Sodium (Lovenox) 60 mg 1 mg/kg (60 mg) SUB-Q Q12HR [facility] Last Admin: 11/21/18 10:20 Dose: 60 mg Documented by: Furosemide (Lasix) 40 mg IV QDAY [facility] Last Admin: 11/21/18 10:21 Dose: 40 mg Documented by: Guaifenesin (Mucinex Er) 600 mg PO BID [facility] Last Admin: 11/21/18 10:21 Dose: 600 mg Documented by: Hydralazine HCl (Apresoline) 10 mg IV Q4H PRN PRN Reason: Blood Pressure Last Admin: 11/18/18 14:19 Dose: 10 mg Documented by: Hydralazine HCl (Apresoline) 50 mg PO Q8HR [facility] Last Admin: 11/21/18 10:23 Dose: Not Given Documented by: Hydromorphone HCl (Dilaudid) 0.5 mg IV Q6H PRN PRN Reason: Pain, Moderate (4-6) Last Admin: 11/20/18 11:37 Dose: 0.5 mg Documented by: Insulin Human Isoph/Insulin Regular (Humulin 70/30) 14 unit SUB-Q BIDDIAB [facility] Last Admin: 11/21/18 10:22 Dose: 14 unit Documented by: Insulin Human Lispro (Humalog) 0 unit SUB-Q ACHS [facility]; Protocol Last Admin: 11/21/18 10:22 Dose: 10 unit Documented by: Isosorbide Mononitrate (Imdur) 30 mg PO QDAY [facility] Last Admin: 11/21/18 10:21 Dose: 30 mg Documented by: Levalbuterol HCl (Xopenex) 0.63 mg IH QID [facility] Last Admin: 11/21/18 09:24 Dose: 0.63 mg Documented by: Lisinopril (Zestril) 20 mg PO BID [facility] Last Admin: 11/21/18 10:21 Dose: 20 mg Documented by: Methylprednisolone Sodium Succinate (Solu-Medrol) 20 mg IV Q8HR [facility] Metoprolol Tartrate (Lopressor) 50 mg PO BID [facility] Last Admin: 11/21/18 10:22 Dose: 50 mg Documented by: Miscellaneous Medication (Diazepam [Valium]) 10 mg PO Q8H PRN PRN Reason: Anxiety Ondansetron HCl (Zofran) 4 mg IV Q8H PRN PRN Reason: Nausea And Vomiting Spironolactone (Aldactone) 25 mg PO QDAY [facility] Last Admin: 11/21/18 10:21 Dose: 25 mg Documented by: Warfarin Sodium (Coumadin) 7.5 mg PO DAILY@1700 [facility] Last Admin: 11/20/18 17:57 Dose: 7.5 mg Documented by: Objective Vital Signs - 12hr 11/20/18 11/21/18 11/21/18 23:05 05:00 08:58 Temperature 98.4 F 98 F Pulse Rate 79 83 89 Pulse Rate [ Anterior Bilateral Throughout] Pulse Rate [ Throughout] Respiratory 16 16 20 Rate Respiratory Rate [Anterior Bilateral Throughout] Respiratory Rate [ Throughout] Blood Pressure 154/73 161/63 Blood Pressure 172/79 [Left] O2 Sat by Pulse 97 100 95 Oximetry 11/21/18 11/21/18 11/21/18 08:59 09:24 09:50 Temperature 97.9 F Pulse Rate Pulse Rate [ 107 H 107 H Anterior Bilateral Throughout] Pulse Rate [ 107 H 107 H Throughout] Respiratory Rate Respiratory 22 20 Rate [Anterior Bilateral Throughout] Respiratory 22 20 Rate [ Throughout] Blood Pressure Blood Pressure [Left] O2 Sat by Pulse 97 Oximetry 11/21/18 11/21/18 11/21/18 10:21 10:22 10:23 Temperature Pulse Rate 89 89 89 Pulse Rate [ Anterior Bilateral Throughout] Pulse Rate [ Throughout] Respiratory Rate Respiratory Rate [Anterior Bilateral Throughout] Respiratory Rate [ Throughout] Blood Pressure 161/63 161/63 161/63 Blood Pressure [Left] O2 Sat by Pulse Oximetry Constitutional: no acute distress, alert Eyes: non-icteric ENT: oropharynx moist Neck: supple Effort: normal Ascultation: Bilateral: wheezes, rhonchi (upper airway) Cardiovascular: regular rate and rhythm (no mrg) Gastrointestinal: normoactive bowel sounds, non-distended Integumentary: normal Extremities: no cyanosis, edema (1+ bilateral LE edema) Neurologic: normal mental status, non-focal exam, pupils equal and round, CN II- XII normal Psychiatric: mood appropriate, affect normal CBC and BMP: 11/20/18 05:07 11/21/18 04:28 ABG, PT/INR, D-dimer: PT/INR, D-dimer PT 13.6 Sec. (12.2-14.9) 11/21/18 04:28 INR 0.98 (0.87-1.13) 11/21/18 04:28 Abnormal lab findings: Abnormal Labs 11/16/18 11/16/18 11/16/18 20:28 22:09 22:09 RBC Hgb Hct RDW 16.7 H Lymph % (Auto) 7.9 L [place] % (Auto) Lymph # 0.7 L [place] # Seg Neutrophils % 86.2 H Seg Neutrophils # 7.8 H APTT Heparin Anti-Xa Level Sodium 127 L Potassium Chloride 88.4 L Carbon Dioxide 19 L BUN 23 H Glucose 878 H* POC Glucose > 500 H Hemoglobin A1c Phosphorus Magnesium Total Creatine Kinase CK-MB (CK-2) CK-MB (CK-2) Rel Index Troponin T NT-Pro-B Natriuret Pep Triglycerides 11/16/18 11/16/18 11/16/18 22:09 22:09 23:34 RBC Hgb Hct RDW Lymph % (Auto) [place] % (Auto) Lymph # [place] # Seg Neutrophils % Seg Neutrophils # APTT 23.8 L Heparin Anti-Xa Level Sodium Potassium Chloride Carbon Dioxide BUN Glucose POC Glucose Hemoglobin A1c Phosphorus Magnesium Total Creatine Kinase CK-MB (CK-2) CK-MB (CK-2) Rel Index Troponin T 1.200 H* NT-Pro-B Natriuret Pep 03301 H Triglycerides 231 H 11/17/18 11/17/18 11/17/18 00:39 00:39 00:57 RBC Hgb Hct RDW Lymph % (Auto) [place] % (Auto) Lymph # [place] # Seg Neutrophils % Seg Neutrophils # APTT Heparin Anti-Xa Level Sodium 124 L Potassium Chloride 92.9 L Carbon Dioxide 15 L BUN 22 H Glucose 772 H* POC Glucose > 500 H Hemoglobin A1c Phosphorus 4.80 H Magnesium Total Creatine Kinase CK-MB (CK-2) CK-MB (CK-2) Rel Index Troponin T NT-Pro-B Natriuret Pep Triglycerides 11/17/18 11/17/18 11/17/18 02:13 02:28 03:10 RBC Hgb Hct RDW Lymph % (Auto) [place] % (Auto) Lymph # [place] # Seg Neutrophils % Seg Neutrophils # APTT Heparin Anti-Xa Level Sodium 131 L D Potassium Chloride 96.8 L Carbon Dioxide 20 L BUN 21 H Glucose 492 H POC Glucose 436 H 348 H Hemoglobin A1c Phosphorus Magnesium Total Creatine Kinase CK-MB (CK-2) CK-MB (CK-2) Rel Index Troponin T NT-Pro-B Natriuret Pep Triglycerides 11/17/18 11/17/18 11/17/18 04:10 06:08 06:08 RBC Hgb Hct RDW Lymph % (Auto) [place] % (Auto) Lymph # [place] # Seg Neutrophils % Seg Neutrophils # APTT Heparin Anti-Xa Level Sodium Potassium Chloride Carbon Dioxide BUN 21 H Glucose POC Glucose 319 H Hemoglobin A1c Phosphorus Magnesium Total Creatine Kinase 813 H CK-MB (CK-2) 77.1 H CK-MB (CK-2) Rel Index 9.4 H Troponin T 1.550 H* D NT-Pro-B Natriuret Pep Triglycerides 11/17/18 11/17/18 11/17/18 07:04 08:30 09:04 RBC Hgb Hct RDW Lymph % (Auto) [place] % (Auto) Lymph # [place] # Seg Neutrophils % Seg Neutrophils # APTT Heparin Anti-Xa Level Sodium Potassium Chloride Carbon Dioxide BUN 20 H Glucose 106 H POC Glucose 131 H 66 L Hemoglobin A1c Phosphorus Magnesium Total Creatine Kinase CK-MB (CK-2) CK-MB (CK-2) Rel Index Troponin T NT-Pro-B Natriuret Pep Triglycerides 11/17/18 11/17/18 11/17/18 09:04 09:04 11:50 RBC Hgb Hct RDW Lymph % (Auto) [place] % (Auto) Lymph # [place] # Seg Neutrophils % Seg Neutrophils # APTT Heparin Anti-Xa Level 1.06 H Sodium Potassium Chloride Carbon Dioxide BUN Glucose POC Glucose 201 H Hemoglobin A1c 17.7 H Phosphorus Magnesium Total Creatine Kinase CK-MB (CK-2) CK-MB (CK-2) Rel Index Troponin T NT-Pro-B Natriuret Pep Triglycerides 11/17/18 11/17/18 11/18/18 16:58 21:28 01:40 RBC Hgb Hct RDW Lymph % (Auto) [place] % (Auto) Lymph # [place] # Seg Neutrophils % Seg Neutrophils # APTT Heparin Anti-Xa Level Sodium Potassium Chloride Carbon Dioxide BUN 25 H Glucose POC Glucose 230 H 187 H Hemoglobin A1c Phosphorus Magnesium Total Creatine Kinase CK-MB (CK-2) CK-MB (CK-2) Rel Index Troponin T NT-Pro-B Natriuret Pep Triglycerides 11/18/18 11/18/18 11/18/18 01:40 04:49 04:49 RBC Hgb Hct RDW 16.2 H Lymph % (Auto) 12.8 L [place] % (Auto) 7.8 H Lymph # [place] # 0.9 H Seg Neutrophils % 78.1 H Seg Neutrophils # 8.6 H APTT Heparin Anti-Xa Level Sodium Potassium Chloride Carbon Dioxide BUN 24 H Glucose POC Glucose Hemoglobin A1c Phosphorus Magnesium Total Creatine Kinase 323 H CK-MB (CK-2) 28.6 H CK-MB (CK-2) Rel Index 8.8 H Troponin T 1.290 H* NT-Pro-B Natriuret Pep Triglycerides 11/18/18 11/18/18 11/18/18 12:03 16:53 21:49 RBC Hgb Hct RDW Lymph % (Auto) [place] % (Auto) Lymph # [place] # Seg Neutrophils % Seg Neutrophils # APTT Heparin Anti-Xa Level Sodium Potassium Chloride Carbon Dioxide BUN Glucose POC Glucose 140 H 199 H 120 H Hemoglobin A1c Phosphorus Magnesium Total Creatine Kinase CK-MB (CK-2) CK-MB (CK-2) Rel Index Troponin T NT-Pro-B Natriuret Pep Triglycerides 11/18/18 11/19/18 11/19/18 23:06 03:27 03:27 RBC 5.25 H Hgb 15.2 H Hct 47.4 H D RDW 16.6 H Lymph % (Auto) 12.2 L [place] % (Auto) Lymph # [place] # Seg Neutrophils % 82.1 H Seg Neutrophils # 8.9 H APTT Heparin Anti-Xa Level Sodium Potassium Chloride 97.9 L Carbon Dioxide BUN 20 H Glucose 173 H POC Glucose 121 H Hemoglobin A1c Phosphorus Magnesium 1.60 L Total Creatine Kinase CK-MB (CK-2) CK-MB (CK-2) Rel Index Troponin T NT-Pro-B Natriuret Pep Triglycerides 11/19/18 11/19/18 11/19/18 03:27 04:48 04:48 RBC Hgb Hct RDW Lymph % (Auto) [place] % (Auto) Lymph # [place] # Seg Neutrophils % Seg Neutrophils # APTT 45.1 H Heparin Anti-Xa Level 1.10 H Sodium Potassium 3.5 L Chloride Carbon Dioxide 31 H BUN 20 H Glucose 149 H POC Glucose Hemoglobin A1c Phosphorus Magnesium Total Creatine Kinase CK-MB (CK-2) CK-MB (CK-2) Rel Index Troponin T NT-Pro-B Natriuret Pep Triglycerides 11/19/18 11/19/18 11/19/18 06:32 11:54 17:21 RBC Hgb Hct RDW Lymph % (Auto) [place] % (Auto) Lymph # [place] # Seg Neutrophils % Seg Neutrophils # APTT Heparin Anti-Xa Level Sodium Potassium Chloride Carbon Dioxide BUN Glucose POC Glucose 147 H 186 H 190 H Hemoglobin A1c Phosphorus Magnesium Total Creatine Kinase CK-MB (CK-2) CK-MB (CK-2) Rel Index Troponin T NT-Pro-B Natriuret Pep Triglycerides 11/19/18 11/20/18 11/20/18 21:18 06:24 08:05 RBC Hgb Hct RDW Lymph % (Auto) [place] % (Auto) Lymph # [place] # Seg Neutrophils % Seg Neutrophils # APTT Heparin Anti-Xa Level Sodium Potassium Chloride Carbon Dioxide BUN Glucose POC Glucose 298 H 339 H 300 H Hemoglobin A1c Phosphorus Magnesium Total Creatine Kinase CK-MB (CK-2) CK-MB (CK-2) Rel Index Troponin T NT-Pro-B Natriuret Pep Triglycerides 11/20/18 11/21/18 11/21/18 21:29 04:28 05:38 RBC Hgb Hct RDW Lymph % (Auto) [place] % (Auto) Lymph # [place] # Seg Neutrophils % Seg Neutrophils # APTT Heparin Anti-Xa Level Sodium Potassium 3.4 L Chloride 95.9 L Carbon Dioxide 33 H BUN Glucose 378 H POC Glucose 432 H 356 H Hemoglobin A1c Phosphorus Magnesium Total Creatine Kinase CK-MB (CK-2) CK-MB (CK-2) Rel Index Troponin T NT-Pro-B Natriuret Pep Triglycerides Chest x-ray: report reviewed, image reviewed
--- NOTE | 2018-11-21 11:24 | Progress Note ---
Assessment and Plan Assessment: acute respiratory failure acute systolic heart failure NICMP nstemi type 2 htn uncontrolled dm un controllred apical thrombus hypercougable state chol Plan: Cont present cardiac management. The patient has been seen in conjunction with Dr. Velarde who agrees with the assessment and plan of care. Subjective Date of service: 11/21/18 Principal diagnosis: non-STEMI, DKA Interval history: pt sitting up in chair, agitated. in SR/ST on telemetry with 4 beat run NSVT overnight, pt asymptomatic. Objective Last Vital Signs Temp 97.9 F 11/21/18 08:59 Pulse 89 11/21/18 10:23 Resp 20 11/21/18 09:50 BP 161/63 11/21/18 10:23 Pulse Ox 97 11/21/18 09:24 - Physical Examination General: No Apparent Distress HEENT: Positive: Normocephaly, Mucus Membranes Moist Neck: Positive: neck supple, trachea midline. Negative: JVD/HJR Cardiac: Positive: Reg Rate and Rhythm, S1/S2 Lungs: Positive: Decreased Breath Sounds Neuro: Positive: Grossly Intact Abdomen: Positive: Soft, Active Bowel Sounds. Negative: Organomegaly Extremities: Absent: edema - Labs and Meds Coagulation 11/21/18 Range/Units 04:28 PT 13.6 (12.2-14.9) Sec. INR 0.98 (0.87-1.13) Comprehensive Metabolic Panel 11/21/18 Range/Units 04:28 Sodium 141 (137-145) mmol/L Potassium 3.4 L (3.6-5.0) mmol/L Chloride 95.9 L (98-107) mmol/L Carbon Dioxide 33 H (22-30) mmol/L BUN 17 (7-17) mg/dL Creatinine 0.8 (0.7-1.2) mg/dL Glucose 378 H (65-100) mg/dL Calcium 9.0 (8.4-10.2) mg/dL - Imaging and Cardiology Echo: report reviewed, image reviewed (EF29%. Apical LV throbus 1x1.25cm) Cardiac cath: report reviewed (lt main patent, lad patent, lcx patent and rca patent ) - EKG Sinus rhythms and dysrhythmias: sinus rhythm, sinus tachycardia Chamber hypertrophy or enlargement: left ventricular hypertro Repolarization changes or abnormalities: repolarization abn secondary to ventric ular hypertrophy
[2018-11-21] MEDS ORDERED: VALIUM PO PRN (12:01)
[2018-11-21] MEDS: ZITHROMAX PO SCH (13:05)
--- NOTE | 2018-11-21 15:02 | XRay Report ---
CHEST TWO VIEWS: 11/21/18 CLINICAL: Shortness of breath. COMPARISON: 11/16/18 FINDINGS: Stable cardiomegaly. The pulmonary vessels are normal. The lungs are normally expanded and clear except for mild patchy opacities in the posterior right lower lobe on the lateral view. The bones and soft tissues are normal. No tubes or lines. IMPRESSION: Stable cardiomegaly and no CHF.Mild right lower lobe atelectasis versus pneumonia.
[2018-11-21] MEDS: COUMADIN PO SCH (17:29)
--- NOTE | 2018-11-21 19:30 | Progress Note ---
Assessment and Plan Assessment and plan: --Non-ST elevation PR; serial cardiac enzymes, aspirin and beta blockers kirk inhibitors nitrates and statins, s/p Heart cath ; Patent coronary arteries left main patent LAD patent circumflex patent RCA patent with severe LV dysfunction with EF 20-25% Nonischemic cardiomyopathy, medical management -- Acute Systolic congestive heart failure;EF 20-25% Non-Ischemic cardiomyopathy, continue current medications --LV Thrombus ; Full dose Lovenox and Coumadin therapeutic INR between 2 and 3 --Hypokalemia : replaced with kcl --Hypo magnessemia: replace per protocol --Diabetic ketoacidosis/hyperosmolar state;s/p insulin drip On long-acting insulin now, blood sugars reasonable level, ADA diet, long-acting insulin, diabetic education, nutrition education --Hypertensive urgency; present on admission, patient blood pressures reasonable level Continue current antihypertensives and when necessary medications --Dyslipidemia; continue statin --DVT prophylaxis ; patient is already on heparin drip --Full CODE STATUS plan of care is reviewed with the patient and her nurse Possible discharge in 1-2 days if stable History Interval history: Patient seen and examined medical records reviewed No new events reported by the nursing The patient is agitated and restless Vital signs noted Hospitalist Physical - Constitutional Vitals: Temp Pulse Resp BP Pulse Ox 98.0 F 86 20 165/82 97 11/21/18 17:33 11/21/18 17:31 11/21/18 17:31 11/21/18 17:31 11/21/18 17:31 General appearance: Present: no acute distress, well-nourished - EENT Eyes: Present: PERRL, EOM intact - Neck Neck: Present: supple, normal ROM - Respiratory Respiratory effort: normal Respiratory: bilateral: diminished, rales, wheezing, negative: rhonchi - Cardiovascular Rhythm: regular Heart Sounds: Present: S1 & S2 - Extremities Extremities: no ischemia, No edema - Abdominal General gastrointestinal: soft, non-tender, non-distended, normal bowel sounds - Integumentary Integumentary: Present: clear, warm - Psychiatric Psychiatric: appropriate mood/affect, cooperative - Neurologic Neurologic: CNII-XII intact, moves all extremities Results - Labs CBC & Chem 7: 11/20/18 05:07 11/21/18 04:28 Labs: Laboratory Last Values WBC 10.8 K/mm3 (4.5-11.0) 11/19/18 03:27 RBC 5.25 M/mm3 (3.65-5.03) H 11/19/18 03:27 Hgb 13.0 gm/dl (10.1-14.3) 11/20/18 05:07 Hct 40.8 % (30.3-42.9) D 11/20/18 05:07 MCV 91 fl (79-97) 11/19/18 03:27 MCH 29 pg (28-32) 11/19/18 03:27 MCHC 32 % (30-34) 11/19/18 03:27 RDW 16.6 % (13.2-15.2) H 11/19/18 03:27 Plt Count 324 K/mm3 (140-440) 11/20/18 05:07 Lymph % (Auto) 12.2 % (13.4-35.0) L 11/19/18 03:27 Citrus % (Auto) 4.9 % (0.0-7.3) 11/19/18 03:27 Eos % (Auto) 0.2 % (0.0-4.3) 11/19/18 03:27 Baso % (Auto) 0.6 % (0.0-1.8) 11/19/18 03:27 Lymph # 1.3 K/mm3 (1.2-5.4) 11/19/18 03:27 [place] # 0.5 K/mm3 (0.0-0.8) 11/19/18 03:27 Eos # 0.0 K/mm3 (0.0-0.4) 11/19/18 03:27 Baso # 0.1 K/mm3 (0.0-0.1) 11/19/18 03:27 Seg Neutrophils % 82.1 % (40.0-70.0) H 11/19/18 03:27 Seg Neutrophils # 8.9 K/mm3 (1.8-7.7) H 11/19/18 03:27 PT 13.6 Sec. (12.2-14.9) 11/21/18 04:28 INR 0.98 (0.87-1.13) 11/21/18 04:28 APTT 45.1 Sec. (24.2-36.6) H 11/19/18 04:48 Heparin Anti-Xa Level 0.41 U.I./ml (0.3-0.7) 11/19/18 22:42 Sodium 141 mmol/L (137-145) 11/21/18 04:28 Potassium 3.4 mmol/L (3.6-5.0) L 11/21/18 04:28 Chloride 95.9 mmol/L (98-107) L 11/21/18 04:28 Carbon Dioxide 33 mmol/L (22-30) H 11/21/18 04:28 Anion Gap 16 mmol/L 11/21/18 04:28 BUN 17 mg/dL (7-17) 11/21/18 04:28 Creatinine 0.8 mg/dL (0.7-1.2) 11/21/18 04:28 Estimated GFR > 60 ml/min 11/21/18 04:28 BUN/Creatinine Ratio 21 % 11/21/18 04:28 Glucose 378 mg/dL (65-100) H 11/21/18 04:28 POC Glucose 318 (70-105) H 11/21/18 16:39 Hemoglobin A1c 17.7 % (4-6) H 11/17/18 09:04 Ketones Quantitative Small (Negative) 11/16/18 22:09 Calcium 9.0 mg/dL (8.4-10.2) 11/21/18 04:28 Phosphorus 4.80 mg/dL (2.5-4.5) H 11/17/18 00:39 Magnesium 1.60 mg/dL (1.7-2.3) L 11/19/18 03:27 Total Creatine Kinase 323 units/L (30-135) H 11/18/18 01:40 CK-MB (CK-2) 28.6 ng/mL (0.0-4.0) H 11/18/18 01:40 CK-MB (CK-2) Rel Index 8.8 (0-4) H 11/18/18 01:40 Troponin T 1.290 ng/mL (0.00-0.029) H* 11/18/18 01:40 NT-Pro-B Natriuret Pep 59788 pg/mL (0-900) H 11/16/18 22:09 Triglycerides 231 mg/dL (2-149) H 11/16/18 22:09 Cholesterol 176 mg/dL (50-199) 11/16/18 22:09 LDL Cholesterol Direct 106 mg/dL (50-130) 11/16/18 22:09 HDL Cholesterol 46 mg/dL (40-59) 11/16/18 22:09 Cholesterol/HDL Ratio 3.82 % 11/16/18 22:09 Nutrition/Malnutrition Assess - Dietary Evaluation Nutrition/Malnutrition Findings: Nutrition Notes Start: 11/21/18 10:57 Freq: Status: Active Protocol: Document 11/21/18 10:57 ER (Rec: 11/21/18 11:10 ER [id number]) Co-Sign 11/21/18 10:57 LP Nutrition Notes Need for Assessment generated from: Education Initial or Follow up Assessment Current Diagnosis COPD Diabetes Hypertension Heart Failure Other Pertinent Diagnosis Blindness, DKA, NSTEMI Current Diet Cardiac Diet Labs/Tests K: 3.4 B Pertinent Medications Lasix Coumadin Solu-Medrol Height 5 ft 2 in Weight 63.4 kg [place] Body Weight (kg) 50.00 BMI 25.5 Weight Status Appropriate Subjective/Other Information Pt. screened for Coumadin/ Vitamin K diet education. Pt. did not know she was on Coumadin and was very upset when residential mortgage underwriter told her. RN confirmed pt. is currently on Coumadin. Pt. was also upset that she was given sugary foods on her tray when she knows she shouldn't be having them. Diet order was changed to Cardiac/Consistent CHO by RN in room at time of visit. Pt. agreeable to education for both DM and Coumadin/Vitamin K interactions. pt. stated she avoids sweet foods and knows she needs to eat them in moderation. Handouts for both educations were given to pt. for pt. to give to her caregiver (daughter) at home. Pt. denied any N/V/D. Pt. stated she felt constipated but was given milk and she feels better. Burn Absent Trauma Absent Current % PO Good (75-100%) Minimum of two criteria No #1 Nutrition Diagnosis Food and nutrition-related knowledge deficit Etiology lack of prior education for both Coumadin and DM As Evidenced by Signs and Symptoms DKA, and pt. statement that she did not know she was on Coumadin Is patient on ventilator? No Is Patient Ambulatory and/or Out of Bed Yes REE-([facility]-ambulatory/OOB) [ [id number] [id number]] Calculation Used for Recommendations [facility] Additional Notes Protein needs: 76-95g (1.2-1. 5g/kg) Fluid needs: 1.5 L/day for CHF Nutrition Intervention Change Diet Order: Change diet to Cardiac/ Consistent CHO Teaching Recipient Patient Learning Readiness Fair Teaching Methods Discussion Handout Response to Teaching Reinforcement needed Education Handouts Provided CHO Counting for DM; Vitamin K /Coumadin interactions Barriers to Learning Visual Reading skills Age related Emotional Environmental RD phone number provided Yes Patient aware of follow up options Yes Goal #1 Pt. to adhere to diet recommendations and to give caregiver diet education handouts Anticipated Discharge Needs: Cardiac/Consistent CHO Follow-Up By: 11/27/18 Additional Comments F/U: Education reinforcement
[2018-11-22] MEDS: DILAUDID IV PRN ×2 (03:34→23:57)
[2018-11-22 05:39] LABS: Hematocrit 36.5 % (30.3-42.9); Hemoglobin 11.8 gm/dl (10.1-14.3)
[2018-11-22 05:50] LABS: INR 1.97 (0.87-1.13)
[2018-11-22] MEDS: APRESOLINE PO SCH ×3 (06:04→22:14)
[2018-11-22] MEDS: SOLU-Medrol IV SCH ×3 (06:05→22:13)
[2018-11-22] MEDS: PULMICORT IH SCH ×2 (08:07→19:31)
[2018-11-22] MEDS: XOPENEX IH SCH ×7 (08:08→22:49)
[2018-11-22] MEDS: HumaLOG SUB-Q SCH ×4 (08:36→22:14)
[2018-11-22] MEDS: LOPRESSOR PO SCH ×2 (10:18→22:14)
[2018-11-22] MEDS: IMDUR PO SCH (10:20)
[2018-11-22] MEDS: MUCINEX ER PO SCH ×2 (10:20→22:14)
[2018-11-22] MEDS: ZITHROMAX PO SCH (10:20)
[2018-11-22] MEDS: ALDACTONE PO SCH (10:20)
[2018-11-22] MEDS: LOVENOX SUB-Q SCH ×2 (10:21→22:13)
[2018-11-22] MEDS: ZESTRIL PO SCH ×2 (10:21→22:14)
[2018-11-22] MEDS: LASIX IV SCH (10:22)
--- NOTE | 2018-11-22 10:31 | Progress Note ---
Assessment and Plan Assessment: acute respiratory failure acute systolic heart failure NICMP nstemi type 2 htn uncontrolled dm un controllred apical thrombus hypercougable state chol Plan: Cont present cardiac management. The patient has been seen in conjunction with Dr. Velarde who agrees with the assessment and plan of care. Subjective Date of service: 11/22/18 Principal diagnosis: non-STEMI, DKA Interval history: pt resting in bed, still with c/o SOB. Objective Last Vital Signs Temp 98.3 F 11/22/18 08:03 Pulse 92 H 11/22/18 10:21 Resp 19 11/22/18 08:22 BP 166/66 11/22/18 10:21 Pulse Ox 97 11/22/18 08:14 - Physical Examination General: No Apparent Distress HEENT: Positive: Normocephaly, Mucus Membranes Moist Neck: Positive: neck supple, trachea midline. Negative: JVD/HJR Cardiac: Positive: Reg Rate and Rhythm, S1/S2 Lungs: Positive: Decreased Breath Sounds Neuro: Positive: Grossly Intact Abdomen: Positive: Soft, Active Bowel Sounds. Negative: Organomegaly Extremities: Absent: edema - Labs and Meds Coagulation 11/22/18 Range/Units 04:55 PT 23.7 H (12.2-14.9) Sec. INR 1.97 H (0.87-1.13) CBC 11/22/18 Range/Units 04:54 Hgb 11.8 (10.1-14.3) gm/dl Hct 36.5 (30.3-42.9) % Plt Count 270 (140-440) K/mm3 - Imaging and Cardiology Echo: report reviewed, image reviewed (EF29%. Apical LV throbus 1x1.25cm) Cardiac cath: report reviewed (lt main patent, lad patent, lcx patent and rca patent ) - EKG Sinus rhythms and dysrhythmias: sinus rhythm, sinus tachycardia Chamber hypertrophy or enlargement: left ventricular hypertro Repolarization changes or abnormalities: repolarization abn secondary to ventricular hypertrophy
--- NOTE | 2018-11-22 11:38 | Progress Note ---
Assessment and Plan Imp: 1. NSTEMI 2. 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 LV thrombus 4. COPD exac. 5. Acute respiratory failure, hypoxia 6. s/p DKA Rec: 1. Scheduled Xopenex and Mucinex 2. continue Solumedrol at q8 dosing. 3. Anticoagulation per cardiology 4. Outpatient PFTs needed 5. Wean O2; needs home O2 eval. prior to d/c 6. Has persistent throat/chest congestion that she cannot clear; would give her Zithromax 500mg x 5 days 7. Will also treat empirically for acid reflux with BID PPI Subjective Date of service: 11/22/18 Principal diagnosis: non-STEMI, DKA Interval history: patient feels NC is not working despite reading a sat of 97%. Still with cough. Rhonchi and wheeze. mainly in lower lobes. Objective Vital Signs - 12hr 11/22/18 11/22/18 11/22/18 04:08 06:04 08:03 Temperature 98.4 F 98.3 F Pulse Rate 83 86 Pulse Rate [ Anterior Bilateral Throughout] Pulse Rate [ Throughout] Respiratory 16 18 Rate Respiratory Rate [Anterior Bilateral Throughout] Respiratory Rate [ Throughout] Blood Pressure 188/92 188/92 Blood Pressure 169/78 [Left] O2 Sat by Pulse 95 95 Oximetry 11/22/18 11/22/18 11/22/18 08:12 08:14 08:22 Temperature Pulse Rate Pulse Rate [ 87 Anterior Bilateral Throughout] Pulse Rate [ 85 Throughout] Respiratory Rate Respiratory 19 Rate [Anterior Bilateral Throughout] Respiratory 19 Rate [ Throughout] Blood Pressure Blood Pressure [Left] O2 Sat by Pulse 97 Oximetry 11/22/18 11/22/18 11/22/18 10:00 10:18 10:20 Temperature Pulse Rate 67 94 H 92 H Pulse Rate [ Anterior Bilateral Throughout] Pulse Rate [ Throughout] Respiratory 18 Rate Respiratory Rate [Anterior Bilateral Throughout] Respiratory Rate [ Throughout] Blood Pressure 166/66 166/66 Blood Pressure [Left] O2 Sat by Pulse 96 Oximetry 11/22/18 10:21 Temperature Pulse Rate 92 H Pulse Rate [ Anterior Bilateral Throughout] Pulse Rate [ Throughout] Respiratory Rate Respiratory Rate [Anterior Bilateral Throughout] Respiratory Rate [ Throughout] Blood Pressure 166/66 Blood Pressure [Left] O2 Sat by Pulse Oximetry Constitutional: no acute distress, alert Eyes: non-icteric ENT: oropharynx moist Neck: supple Effort: normal Ascultation: Bilateral: clear, diminished breath sounds, wheezes, rhonchi (upper airway) Cardiovascular: regular rate and rhythm (no mrg) Gastrointestinal: normoactive bowel sounds, non-distended Integumentary: normal Extremities: no cyanosis, edema (1+ bilateral LE edema) Neurologic: normal mental status, non-focal exam, pupils equal and round, CN II- XII normal Psychiatric: mood appropriate, affect normal CBC and BMP: 11/22/18 04:54 11/21/18 04:28 ABG, PT/INR, D-dimer: PT/INR, D-dimer PT 23.7 Sec. (12.2-14.9) H 11/22/18 04:55 INR 1.97 (0.87-1.13) H 11/22/18 04:55 Abnormal lab findings: Abnormal Labs 11/16/18 11/16/18 11/16/18 20:28 22:09 22:09 RBC Hgb Hct RDW 16.7 H Lymph % (Auto) 7.9 L Centre % (Auto) Lymph # 0.7 L Centre # Seg Neutrophils % 86.2 H Seg Neutrophils # 7.8 H PT INR APTT Heparin Anti-Xa Level Sodium 127 L Potassium Chloride 88.4 L Carbon Dioxide 19 L BUN 23 H Glucose 878 H* POC Glucose > 500 H Hemoglobin A1c Phosphorus Magnesium Total Creatine Kinase CK-MB (CK-2) CK-MB (CK-2) Rel Index Troponin T NT-Pro-B Natriuret Pep Triglycerides 11/16/18 11/16/18 11/16/18 22:09 22:09 23:34 RBC Hgb Hct RDW Lymph % (Auto) Centre % (Auto) Lymph # Centre # Seg Neutrophils % Seg Neutrophils # PT INR APTT 23.8 L Heparin Anti-Xa Level Sodium Potassium Chloride Carbon Dioxide BUN Glucose POC Glucose Hemoglobin A1c Phosphorus Magnesium Total Creatine Kinase CK-MB (CK-2) CK-MB (CK-2) Rel Index Troponin T 1.200 H* NT-Pro-B Natriuret Pep 52164 H Triglycerides 231 H 11/17/18 11/17/18 11/17/18 00:39 00:39 00:57 RBC Hgb Hct RDW Lymph % (Auto) Centre % (Auto) Lymph # Centre # Seg Neutrophils % Seg Neutrophils # PT INR APTT Heparin Anti-Xa Level Sodium 124 L Potassium Chloride 92.9 L Carbon Dioxide 15 L BUN 22 H Glucose 772 H* POC Glucose > 500 H Hemoglobin A1c Phosphorus 4.80 H Magnesium Total Creatine Kinase CK-MB (CK-2) CK-MB (CK-2) Rel Index Troponin T NT-Pro-B Natriuret Pep Triglycerides 11/17/18 11/17/18 11/17/18 02:13 02:28 03:10 RBC Hgb Hct RDW Lymph % (Auto) Centre % (Auto) Lymph # Centre # Seg Neutrophils % Seg Neutrophils # PT INR APTT Heparin Anti-Xa Level Sodium 131 L D Potassium Chloride 96.8 L Carbon Dioxide 20 L BUN 21 H Glucose 492 H POC Glucose 436 H 348 H Hemoglobin A1c Phosphorus Magnesium Total Creatine Kinase CK-MB (CK-2) CK-MB (CK-2) Rel Index Troponin T NT-Pro-B Natriuret Pep Triglycerides 11/17/18 11/17/18 11/17/18 04:10 06:08 06:08 RBC Hgb Hct RDW Lymph % (Auto) Centre % (Auto) Lymph # Centre # Seg Neutrophils % Seg Neutrophils # PT INR APTT Heparin Anti-Xa Level Sodium Potassium Chloride Carbon Dioxide BUN 21 H Glucose POC Glucose 319 H Hemoglobin A1c Phosphorus Magnesium Total Creatine Kinase 813 H CK-MB (CK-2) 77.1 H CK-MB (CK-2) Rel Index 9.4 H Troponin T 1.550 H* D NT-Pro-B Natriuret Pep Triglycerides 11/17/18 11/17/18 11/17/18 07:04 08:30 09:04 RBC Hgb Hct RDW Lymph % (Auto) Centre % (Auto) Lymph # Centre # Seg Neutrophils % Seg Neutrophils # PT INR APTT Heparin Anti-Xa Level Sodium Potassium Chloride Carbon Dioxide BUN 20 H Glucose 106 H POC Glucose 131 H 66 L Hemoglobin A1c Phosphorus Magnesium Total Creatine Kinase CK-MB (CK-2) CK-MB (CK-2) Rel Index Troponin T NT-Pro-B Natriuret Pep Triglycerides 11/17/18 11/17/18 11/17/18 09:04 09:04 11:50 RBC Hgb Hct RDW Lymph % (Auto) Centre % (Auto) Lymph # Centre # Seg Neutrophils % Seg Neutrophils # PT INR APTT Heparin Anti-Xa Level 1.06 H Sodium Potassium Chloride Carbon Dioxide BUN Glucose POC Glucose 201 H Hemoglobin A1c 17.7 H Phosphorus Magnesium Total Creatine Kinase CK-MB (CK-2) CK-MB (CK-2) Rel Index Troponin T NT-Pro-B Natriuret Pep Triglycerides 11/17/18 11/17/18 11/18/18 16:58 21:28 01:40 RBC Hgb Hct RDW Lymph % (Auto) Centre % (Auto) Lymph # Centre # Seg Neutrophils % Seg Neutrophils # PT INR APTT Heparin Anti-Xa Level Sodium Potassium Chloride Carbon Dioxide BUN 25 H Glucose POC Glucose 230 H 187 H Hemoglobin A1c Phosphorus Magnesium Total Creatine Kinase CK-MB (CK-2) CK-MB (CK-2) Rel Index Troponin T NT-Pro-B Natriuret Pep Triglycerides 11/18/18 11/18/18 11/18/18 01:40 04:49 04:49 RBC Hgb Hct RDW 16.2 H Lymph % (Auto) 12.8 L Centre % (Auto) 7.8 H Lymph # Centre # 0.9 H Seg Neutrophils % 78.1 H Seg Neutrophils # 8.6 H PT INR APTT Heparin Anti-Xa Level Sodium Potassium Chloride Carbon Dioxide BUN 24 H Glucose POC Glucose Hemoglobin A1c Phosphorus Magnesium Total Creatine Kinase 323 H CK-MB (CK-2) 28.6 H CK-MB (CK-2) Rel Index 8.8 H Troponin T 1.290 H* NT-Pro-B Natriuret Pep Triglycerides 11/18/18 11/18/18 11/18/18 12:03 16:53 21:49 RBC Hgb Hct RDW Lymph % (Auto) Centre % (Auto) Lymph # Centre # Seg Neutrophils % Seg Neutrophils # PT INR APTT Heparin Anti-Xa Level Sodium Potassium Chloride Carbon Dioxide BUN Glucose POC Glucose 140 H 199 H 120 H Hemoglobin A1c Phosphorus Magnesium Total Creatine Kinase CK-MB (CK-2) CK-MB (CK-2) Rel Index Troponin T NT-Pro-B Natriuret Pep Triglycerides 11/18/18 11/19/18 11/19/18 23:06 03:27 03:27 RBC 5.25 H Hgb 15.2 H Hct 47.4 H D RDW 16.6 H Lymph % (Auto) 12.2 L Centre % (Auto) Lymph # Centre # Seg Neutrophils % 82.1 H Seg Neutrophils # 8.9 H PT INR APTT Heparin Anti-Xa Level Sodium Potassium Chloride 97.9 L Carbon Dioxide BUN 20 H Glucose 173 H POC Glucose 121 H Hemoglobin A1c Phosphorus Magnesium 1.60 L Total Creatine Kinase CK-MB (CK-2) CK-MB (CK-2) Rel Index Troponin T NT-Pro-B Natriuret Pep Triglycerides 11/19/18 11/19/18 11/19/18 03:27 04:48 04:48 RBC Hgb Hct RDW Lymph % (Auto) Centre % (Auto) Lymph # Centre # Seg Neutrophils % Seg Neutrophils # PT INR APTT 45.1 H Heparin Anti-Xa Level 1.10 H Sodium Potassium 3.5 L Chloride Carbon Dioxide 31 H BUN 20 H Glucose 149 H POC Glucose Hemoglobin A1c Phosphorus Magnesium Total Creatine Kinase CK-MB (CK-2) CK-MB (CK-2) Rel Index Troponin T NT-Pro-B Natriuret Pep Triglycerides 11/19/18 11/19/18 11/19/18 06:32 11:54 17:21 RBC Hgb Hct RDW Lymph % (Auto) Centre % (Auto) Lymph # Centre # Seg Neutrophils % Seg Neutrophils # PT INR APTT Heparin Anti-Xa Level Sodium Potassium Chloride Carbon Dioxide BUN Glucose POC Glucose 147 H 186 H 190 H Hemoglobin A1c Phosphorus Magnesium Total Creatine Kinase CK-MB (CK-2) CK-MB (CK-2) Rel Index Troponin T NT-Pro-B Natriuret Pep Triglycerides 11/19/18 11/20/18 11/20/18 21:18 06:24 08:05 RBC Hgb Hct RDW Lymph % (Auto) Centre % (Auto) Lymph # Centre # Seg Neutrophils % Seg Neutrophils # PT INR APTT Heparin Anti-Xa Level Sodium Potassium Chloride Carbon Dioxide BUN Glucose POC Glucose 298 H 339 H 300 H Hemoglobin A1c Phosphorus Magnesium Total Creatine Kinase CK-MB (CK-2) CK-MB (CK-2) Rel Index Troponin T NT-Pro-B Natriuret Pep Triglycerides 11/20/18 11/21/18 11/21/18 21:29 04:28 05:38 RBC Hgb Hct RDW Lymph % (Auto) Centre % (Auto) Lymph # Centre # Seg Neutrophils % Seg Neutrophils # PT INR APTT Heparin Anti-Xa Level Sodium Potassium 3.4 L Chloride 95.9 L Carbon Dioxide 33 H BUN Glucose 378 H POC Glucose 432 H 356 H Hemoglobin A1c Phosphorus Magnesium Total Creatine Kinase CK-MB (CK-2) CK-MB (CK-2) Rel Index Troponin T NT-Pro-B Natriuret Pep Triglycerides 11/21/18 11/21/18 11/21/18 11:45 16:39 21:03 RBC Hgb Hct RDW Lymph % (Auto) Centre % (Auto) Lymph # Centre # Seg Neutrophils % Seg Neutrophils # PT INR APTT Heparin Anti-Xa Level Sodium Potassium Chloride Carbon Dioxide BUN Glucose POC Glucose 495 H 318 H 107 H Hemoglobin A1c Phosphorus Magnesium Total Creatine Kinase CK-MB (CK-2) CK-MB (CK-2) Rel Index Troponin T NT-Pro-B Natriuret Pep Triglycerides 11/22/18 11/22/18 04:55 05:46 RBC Hgb Hct RDW Lymph % (Auto) Centre % (Auto) Lymph # Centre # Seg Neutrophils % Seg Neutrophils # PT 23.7 H INR 1.97 H APTT Heparin Anti-Xa Level Sodium Potassium Chloride Carbon Dioxide BUN Glucose POC Glucose 228 H Hemoglobin A1c Phosphorus Magnesium Total Creatine Kinase CK-MB (CK-2) CK-MB (CK-2) Rel Index Troponin T NT-Pro-B Natriuret Pep Triglycerides
[2018-11-22] MEDS: PROTONIX PO SCH ×2 (13:47→22:14)
[2018-11-22] MEDS: TYLENOL PO PRN (13:48)
[2018-11-22] MEDS ORDERED: COUMADIN PO SCH (17:00)
--- NOTE | 2018-11-22 19:34 | Progress Note ---
Assessment and Plan Assessment and plan: --Diabetic ketoacidosis/hyperosmolar state;s/p insulin drip: Resolved --Type 2 diabetes mellitus ; uncontrolled Accu-Chek sliding scale coverage ADA diet, Increase insulin dose , closely monitor diabetic education, nutrition education, and health nurse upon discharge --Acute hypoxic respiratory failure; secondary to COPD exacerbation Mild improvement, oxygen, nebulizers, IV steroids, inhalation steroids, supportive care Evaluation for home oxygen at discharge --Acute exacerbation of COPD; continue about treatment --LV Thrombus ; Full dose Lovenox and Coumadin , target INR between 2-3 INR today is 1.9, pharmacy to dose --Non-ST elevation GA; serial cardiac enzymes, aspirin and beta blockers kirk inhibitors nitrates and statins, s/p Heart cath ; Patent coronary arteries left main patent LAD patent circumflex patent RCA patent with severe LV dysfunction with EF 20-25% -- Acute Systolic congestive heart failure;EF 20-25% Non-Ischemic cardiomyopathy, continue current medications --Hypokalemia : replaced with kcl --Hypo magnessemia: replace per protocol --Hypertensive urgency; present on admission, patient blood pressures reasonable level Continue current antihypertensives and when necessary medications --Dyslipidemia; continue statin --DVT prophylaxis ; patient is already on heparin drip --Full CODE STATUS Discharge planning. Case management, possible home with home health plan of care is reviewed with the patient and her nurse Possible discharge in 1-2 days if stable History Interval history: Patient seen and examined medical records reviewed Patient feels slightly better no new complaints Constitutional: Home No new events reported by the nursing Vital signs reviewed Hospitalist Physical - Constitutional Vitals: Temp Pulse Resp BP Pulse Ox 98.4 F 85 17 164/73 98 11/22/18 17:23 11/22/18 19:32 11/22/18 19:32 11/22/18 17:24 11/22/18 19:33 General appearance: Present: no acute distress, well-nourished - EENT Eyes: Present: PERRL, EOM intact - Neck Neck: Present: supple, normal ROM - Respiratory Respiratory effort: normal Respiratory: bilateral: diminished, rhonchi, negative: rales, wheezing - Cardiovascular Rhythm: regular Heart Sounds: Present: S1 & S2 - Extremities Extremities: no ischemia, No edema - Abdominal General gastrointestinal: soft, non-tender, non-distended, normal bowel sounds - Integumentary Integumentary: Present: clear, warm - Psychiatric Psychiatric: appropriate mood/affect, cooperative - Neurologic Neurologic: CNII-XII intact, moves all extremities Results - Labs CBC & Chem 7: 11/22/18 04:54 11/21/18 04:28 Labs: Laboratory Last Values WBC 10.8 K/mm3 (4.5-11.0) 11/19/18 03:27 RBC 5.25 M/mm3 (3.65-5.03) H 11/19/18 03:27 Hgb 11.8 gm/dl (10.1-14.3) 11/22/18 04:54 Hct 36.5 % (30.3-42.9) 11/22/18 04:54 MCV 91 fl (79-97) 11/19/18 03:27 MCH 29 pg (28-32) 11/19/18 03:27 MCHC 32 % (30-34) 11/19/18 03:27 RDW 16.6 % (13.2-15.2) H 11/19/18 03:27 Plt Count 270 K/mm3 (140-440) 11/22/18 04:54 Lymph % (Auto) 12.2 % (13.4-35.0) L 11/19/18 03:27 [place] % (Auto) 4.9 % (0.0-7.3) 11/19/18 03:27 Eos % (Auto) 0.2 % (0.0-4.3) 11/19/18 03:27 Baso % (Auto) 0.6 % (0.0-1.8) 11/19/18 03:27 Lymph # 1.3 K/mm3 (1.2-5.4) 11/19/18 03:27 [place] # 0.5 K/mm3 (0.0-0.8) 11/19/18 03:27 Eos # 0.0 K/mm3 (0.0-0.4) 11/19/18 03:27 Baso # 0.1 K/mm3 (0.0-0.1) 11/19/18 03:27 Seg Neutrophils % 82.1 % (40.0-70.0) H 11/19/18 03:27 Seg Neutrophils # 8.9 K/mm3 (1.8-7.7) H 11/19/18 03:27 PT 23.7 Sec. (12.2-14.9) H 11/22/18 04:55 INR 1.97 (0.87-1.13) H 11/22/18 04:55 APTT 45.1 Sec. (24.2-36.6) H 11/19/18 04:48 Heparin Anti-Xa Level 0.41 U.I./ml (0.3-0.7) 11/19/18 22:42 Sodium 141 mmol/L (137-145) 11/21/18 04:28 Potassium 3.4 mmol/L (3.6-5.0) L 11/21/18 04:28 Chloride 95.9 mmol/L (98-107) L 11/21/18 04:28 Carbon Dioxide 33 mmol/L (22-30) H 11/21/18 04:28 Anion Gap 16 mmol/L 11/21/18 04:28 BUN 17 mg/dL (7-17) 11/21/18 04:28 Creatinine 0.8 mg/dL (0.7-1.2) 11/21/18 04:28 Estimated GFR > 60 ml/min 11/21/18 04:28 BUN/Creatinine Ratio 21 % 11/21/18 04:28 Glucose 378 mg/dL (65-100) H 11/21/18 04:28 POC Glucose 252 (70-105) H 11/22/18 17:25 Hemoglobin A1c 17.7 % (4-6) H 11/17/18 09:04 Ketones Quantitative Small (Negative) 11/16/18 22:09 Calcium 9.0 mg/dL (8.4-10.2) 11/21/18 04:28 Phosphorus 4.80 mg/dL (2.5-4.5) H 11/17/18 00:39 Magnesium 1.60 mg/dL (1.7-2.3) L 11/19/18 03:27 Total Creatine Kinase 323 units/L (30-135) H 11/18/18 01:40 CK-MB (CK-2) 28.6 ng/mL (0.0-4.0) H 11/18/18 01:40 CK-MB (CK-2) Rel Index 8.8 (0-4) H 11/18/18 01:40 Troponin T 1.290 ng/mL (0.00-0.029) H* 11/18/18 01:40 NT-Pro-B Natriuret Pep 52834 pg/mL (0-900) H 11/16/18 22:09 Triglycerides 231 mg/dL (2-149) H 11/16/18 22:09 Cholesterol 176 mg/dL (50-199) 11/16/18 22:09 LDL Cholesterol Direct 106 mg/dL (50-130) 11/16/18 22:09 HDL Cholesterol 46 mg/dL (40-59) 11/16/18 22:09 Cholesterol/HDL Ratio 3.82 % 11/16/18 22:09 Nutrition/Malnutrition Assess - Dietary Evaluation Nutrition/Malnutrition Findings: Nutrition Notes Start: 11/21/18 10:57 Freq: Status: Active Protocol: Document 11/21/18 10:57 ER (Rec: 11/21/18 11:10 ER [id number]) Co-Sign 11/21/18 10:57 LP Nutrition Notes Need for Assessment generated from: Education Initial or Follow up Assessment Current Diagnosis COPD Diabetes Hypertension Heart Failure Other Pertinent Diagnosis Blindness, DKA, NSTEMI Current Diet Cardiac Diet Labs/Tests K: 3.4 B Pertinent Medications Lasix Coumadin Solu-Medrol Height 5 ft 2 in Weight 63.4 kg [place] Body Weight (kg) 50.00 BMI 25.5 Weight Status Appropriate Subjective/Other Information Pt. screened for Coumadin/ Vitamin K diet education. Pt. did not know she was on Coumadin and was very upset when personal lines underwriter told her. RN confirmed pt. is currently on Coumadin. Pt. was also upset that she was given sugary foods on her tray when she knows she shouldn't be having them. Diet order was changed to Cardiac/Consistent CHO by RN in room at time of visit. Pt. agreeable to education for both DM and Coumadin/Vitamin K interactions. pt. stated she avoids sweet foods and knows she needs to eat them in moderation. Handouts for both educations were given to pt. for pt. to give to her caregiver (daughter) at home. Pt. denied any N/V/D. Pt. stated she felt constipated but was given milk and she feels better. Burn Absent Trauma Absent Current % PO Good (75-100%) Minimum of two criteria No #1 Nutrition Diagnosis Food and nutrition-related knowledge deficit Etiology lack of prior education for both Coumadin and DM As Evidenced by Signs and Symptoms DKA, and pt. statement that she did not know she was on Coumadin Is patient on ventilator? No Is Patient Ambulatory and/or Out of Bed Yes REE-([facility]-ambulatory/OOB) [ [id number] [id number]] Calculation Used for Recommendations [facility] Additional Notes Protein needs: 76-95g (1.2-1. 5g/kg) Fluid needs: 1.5 L/day for CHF Nutrition Intervention Change Diet Order: Change diet to Cardiac/ Consistent CHO Teaching Recipient Patient Learning Readiness Fair Teaching Methods Discussion Handout Response to Teaching Reinforcement needed Education Handouts Provided CHO Counting for DM; Vitamin K /Coumadin interactions Barriers to Learning Visual Reading skills Age related Emotional Environmental RD phone number provided Yes Patient aware of follow up options Yes Goal #1 Pt. to adhere to diet recommendations and to give caregiver diet education handouts Anticipated Discharge Needs: Cardiac/Consistent CHO Follow-Up By: 11/27/18 Additional Comments F/U: Education reinforcement
[2018-11-23 05:44] LABS: Hematocrit 34.5 % (30.3-42.9); Hemoglobin 11.2 gm/dl (10.1-14.3); Mean Corpuscular HGB Conc 33 % (30-34); Mean Corpuscular Volume 90 fl (79-97); Platelet Count 246 K/mm3 (140-440); Red Blood Count 3.86 M/mm3 (3.65-5.03); Red Cell Distribution Width 16.8 % (13.2-15.2)
[2018-11-23 05:55] LABS: INR 3.18 (0.87-1.13)
[2018-11-23] MEDS: TYLENOL PO PRN ×2 (06:00→15:56)
[2018-11-23] MEDS: APRESOLINE PO SCH ×2 (06:00→13:23)
[2018-11-23] MEDS: SOLU-Medrol IV SCH (06:01)
[2018-11-23 06:45] LABS: BUN/Creatinine Ratio 31; Blood Urea Nitrogen 25 mg/dL (7-17); Calcium 8.3 mg/dL (8.4-10.2); Hemolysis Index 20
[2018-11-23 07:48] LABS: Band Neutrophils # (Manual) 0.4 K/mm3; Basophils % (Manual) 0 % (0.0-1.8); Eosinophils % (Manual) 0 % (0.0-4.3); Total Cells Counted 200
[2018-11-23 07:49] LABS: Anisocytosis 1+; Hypochromasia 1+; Ovalocytes Few; Platelet Estimate Consistent w Auto; Poikilocytosis 1+; Target Cells 1+
[2018-11-23] MEDS: PULMICORT IH SCH (07:58)
[2018-11-23] MEDS: XOPENEX IH SCH ×4 (07:58→15:01)
[2018-11-23] MEDS: DILAUDID IV PRN (08:27)
[2018-11-23] MEDS: HumaLOG SUB-Q SCH ×2 (08:52→12:33)
[2018-11-23] MEDS: ZITHROMAX PO SCH (10:16)
[2018-11-23] MEDS: PROTONIX PO SCH (10:16)
[2018-11-23] MEDS: IMDUR PO SCH (10:16)
[2018-11-23] MEDS: MUCINEX ER PO SCH (10:16)
[2018-11-23] MEDS: LOPRESSOR PO SCH (10:17)
[2018-11-23] MEDS: ZESTRIL PO SCH (10:18)
[2018-11-23] MEDS: LASIX IV SCH (10:19)
[2018-11-23] MEDS: ALDACTONE PO SCH (10:19)
--- NOTE | 2018-11-23 10:22 | Progress Note ---
Assessment and Plan Assessment: acute respiratory failure acute systolic heart failure NICMP nstemi type 2 htn uncontrolled dm un controllred apical thrombus hypercougable state chol Plan: Currently stable cardiac status. Convert IV lasix to PO lasix 40mg daily. Cont coumadin with tx INR 2-3. INR 3.18 today. Per pulmonary, pt needs home O2 eval. prior to d/c Pt may discharge from cardiology standpoint. Pt is followed by [place]. Recommend follow up with [place] cardiology and INR check within 3-5 days of hospital discharge. The patient has been seen in conjunction with Dr. Velarde who agrees with the assessment and plan of care. Subjective Date of service: 11/23/18 Principal diagnosis: non-STEMI, DKA Interval history: pt resting in bed, no current cardiac complaints. does not like wearing the nasal cannula. Objective Last Vital Signs Temp 98.5 F 11/23/18 04:05 Pulse 79 11/23/18 10:19 Resp 20 11/23/18 08:16 BP 159/86 11/23/18 10:19 Pulse Ox 91 11/23/18 08:23 - Physical Examination General: No Apparent Distress HEENT: Positive: Normocephaly, Mucus Membranes Moist Neck: Positive: neck supple, trachea midline. Negative: JVD/HJR Cardiac: Positive: Reg Rate and Rhythm, S1/S2 Lungs: Positive: Decreased Breath Sounds Neuro: Positive: Grossly Intact Abdomen: Positive: Soft, Active Bowel Sounds. Negative: Organomegaly Extremities: Absent: edema - Labs and Meds Coagulation 11/23/18 Range/Units 04:42 PT 34.8 H (12.2-14.9) Sec. INR 3.18 H (0.87-1.13) CBC 11/23/18 Range/Units 04:42 WBC 20.2 H (4.5-11.0) K/mm3 RBC 3.86 (3.65-5.03) M/mm3 Hgb 11.2 (10.1-14.3) gm/dl Hct 34.5 (30.3-42.9) % Plt Count 246 (140-440) K/mm3 Comprehensive Metabolic Panel 11/23/18 Range/Units 04:42 Sodium 142 (137-145) mmol/L Potassium 3.5 L (3.6-5.0) mmol/L Chloride 97.2 L (98-107) mmol/L Carbon Dioxide 35 H (22-30) mmol/L BUN 25 H (7-17) mg/dL Creatinine 0.8 (0.7-1.2) mg/dL Glucose 157 H (65-100) mg/dL Calcium 8.3 L (8.4-10.2) mg/dL - Imaging and Cardiology Echo: report reviewed, image reviewed (EF29%. Apical LV throbus 1x1.25cm) Cardiac cath: report reviewed (lt main patent, lad patent, lcx patent and rca patent ) - EKG Sinus rhythms and dysrhythmias: sinus rhythm, sinus tachycardia Chamber hypertrophy or enlargement: left ventricular hypertro Repolarization changes or abnormalities: repolarization abn secondary to ventricular hypertrophy
--- NOTE | 2018-11-23 11:28 | Progress Note ---
Assessment and Plan Imp: 1. NSTEMI 2. 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 LV thrombus 4. COPD exac. 5. Acute respiratory failure, hypoxia 6. s/p DKA No new recs for today, please see below. Rec: 1. Scheduled Xopenex and Mucinex 2. continue Solumedrol at q8 dosing. 3. Anticoagulation per cardiology 4. Outpatient PFTs needed 5. Wean O2; needs home O2 eval. prior to d/c 6. Has persistent throat/chest congestion that she cannot clear; would give her Zithromax 500mg x 5 days 7. Will also treat empirically for acid reflux with BID PPI Subjective Date of service: 11/23/18 Principal diagnosis: non-STEMI, DKA Interval history: No acute events. Objective Vital Signs - 12hr 11/22/18 11/23/18 11/23/18 23:43 04:05 07:59 Temperature 98.3 F 98.5 F Pulse Rate 82 76 Pulse Rate [ 78 Throughout] Respiratory 16 18 Rate Respiratory 20 Rate [ Throughout] Blood Pressure 149/64 161/81 Blood Pressure [Left] O2 Sat by Pulse 97 100 Oximetry 11/23/18 11/23/18 11/23/18 08:00 08:16 08:17 Temperature 97.9 F Pulse Rate 79 Pulse Rate [ 83 Throughout] Respiratory 2 L Rate Respiratory 20 Rate [ Throughout] Blood Pressure Blood Pressure 159/86 [Left] O2 Sat by Pulse 94 Oximetry 11/23/18 11/23/18 11/23/18 08:23 10:16 10:17 Temperature Pulse Rate 78 79 79 Pulse Rate [ Throughout] Respiratory Rate Respiratory Rate [ Throughout] Blood Pressure 159/85 159/86 159/86 Blood Pressure [Left] O2 Sat by Pulse 91 Oximetry 11/23/18 11/23/18 11/23/18 10:18 10:19 11:07 Temperature Pulse Rate 79 79 Pulse Rate [ 78 Throughout] Respiratory Rate Respiratory 20 Rate [ Throughout] Blood Pressure 159/86 159/86 Blood Pressure [Left] O2 Sat by Pulse Oximetry Constitutional: no acute distress, alert Eyes: non-icteric ENT: oropharynx moist Neck: supple Effort: normal Ascultation: Bilateral: clear, diminished breath sounds, wheezes, rhonchi (upper airway) Cardiovascular: regular rate and rhythm (no mrg) Gastrointestinal: normoactive bowel sounds, non-distended Integumentary: normal Extremities: no cyanosis, edema (1+ bilateral LE edema) Neurologic: normal mental status, non-focal exam, pupils equal and round, CN II- XII normal Psychiatric: mood appropriate, affect normal CBC and BMP: 11/23/18 04:42 11/23/18 04:42 ABG, PT/INR, D-dimer: PT/INR, D-dimer PT 34.8 Sec. (12.2-14.9) H 11/23/18 04:42 INR 3.18 (0.87-1.13) H 11/23/18 04:42 Abnormal lab findings: Abnormal Labs 11/16/18 11/16/18 11/16/18 20:28 22:09 22:09 WBC RBC Hgb Hct RDW 16.7 H Lymph % (Auto) 7.9 L [place] % (Auto) Lymph # 0.7 L [place] # Seg Neutrophils % 86.2 H Seg Neuts % (Manual) Lymphocytes % (Manual) Seg Neutrophils # 7.8 H Seg Neutrophils # Man Lymphocytes # (Manual) PT INR APTT Heparin Anti-Xa Level Sodium 127 L Potassium Chloride 88.4 L Carbon Dioxide 19 L BUN 23 H Glucose 878 H* POC Glucose > 500 H Hemoglobin A1c Calcium Phosphorus Magnesium Total Creatine Kinase CK-MB (CK-2) CK-MB (CK-2) Rel Index Troponin T NT-Pro-B Natriuret Pep Triglycerides 11/16/18 11/16/18 11/16/18 22:09 22:09 23:34 WBC RBC Hgb Hct RDW Lymph % (Auto) [place] % (Auto) Lymph # [place] # Seg Neutrophils % Seg Neuts % (Manual) Lymphocytes % (Manual) Seg Neutrophils # Seg Neutrophils # Man Lymphocytes # (Manual) PT INR APTT 23.8 L Heparin Anti-Xa Level Sodium Potassium Chloride Carbon Dioxide BUN Glucose POC Glucose Hemoglobin A1c Calcium Phosphorus Magnesium Total Creatine Kinase CK-MB (CK-2) CK-MB (CK-2) Rel Index Troponin T 1.200 H* NT-Pro-B Natriuret Pep 49257 H Triglycerides 231 H 11/17/18 11/17/18 11/17/18 00:39 00:39 00:57 WBC RBC Hgb Hct RDW Lymph % (Auto) [place] % (Auto) Lymph # [place] # Seg Neutrophils % Seg Neuts % (Manual) Lymphocytes % (Manual) Seg Neutrophils # Seg Neutrophils # Man Lymphocytes # (Manual) PT INR APTT Heparin Anti-Xa Level Sodium 124 L Potassium Chloride 92.9 L Carbon Dioxide 15 L BUN 22 H Glucose 772 H* POC Glucose > 500 H Hemoglobin A1c Calcium Phosphorus 4.80 H Magnesium Total Creatine Kinase CK-MB (CK-2) CK-MB (CK-2) Rel Index Troponin T NT-Pro-B Natriuret Pep Triglycerides 11/17/18 11/17/18 11/17/18 02:13 02:28 03:10 WBC RBC Hgb Hct RDW Lymph % (Auto) [place] % (Auto) Lymph # [place] # Seg Neutrophils % Seg Neuts % (Manual) Lymphocytes % (Manual) Seg Neutrophils # Seg Neutrophils # Man Lymphocytes # (Manual) PT INR APTT Heparin Anti-Xa Level Sodium 131 L D Potassium Chloride 96.8 L Carbon Dioxide 20 L BUN 21 H Glucose 492 H POC Glucose 436 H 348 H Hemoglobin A1c Calcium Phosphorus Magnesium Total Creatine Kinase CK-MB (CK-2) CK-MB (CK-2) Rel Index Troponin T NT-Pro-B Natriuret Pep Triglycerides 11/17/18 11/17/18 11/17/18 04:10 06:08 06:08 WBC RBC Hgb Hct RDW Lymph % (Auto) [place] % (Auto) Lymph # [place] # Seg Neutrophils % Seg Neuts % (Manual) Lymphocytes % (Manual) Seg Neutrophils # Seg Neutrophils # Man Lymphocytes # (Manual) PT INR APTT Heparin Anti-Xa Level Sodium Potassium Chloride Carbon Dioxide BUN 21 H Glucose POC Glucose 319 H Hemoglobin A1c Calcium Phosphorus Magnesium Total Creatine Kinase 813 H CK-MB (CK-2) 77.1 H CK-MB (CK-2) Rel Index 9.4 H Troponin T 1.550 H* D NT-Pro-B Natriuret Pep Triglycerides 11/17/18 11/17/18 11/17/18 07:04 08:30 09:04 WBC RBC Hgb Hct RDW Lymph % (Auto) [place] % (Auto) Lymph # [place] # Seg Neutrophils % Seg Neuts % (Manual) Lymphocytes % (Manual) Seg Neutrophils # Seg Neutrophils # Man Lymphocytes # (Manual) PT INR APTT Heparin Anti-Xa Level Sodium Potassium Chloride Carbon Dioxide BUN 20 H Glucose 106 H POC Glucose 131 H 66 L Hemoglobin A1c Calcium Phosphorus Magnesium Total Creatine Kinase CK-MB (CK-2) CK-MB (CK-2) Rel Index Troponin T NT-Pro-B Natriuret Pep Triglycerides 11/17/18 11/17/18 11/17/18 09:04 09:04 11:50 WBC RBC Hgb Hct RDW Lymph % (Auto) [place] % (Auto) Lymph # [place] # Seg Neutrophils % Seg Neuts % (Manual) Lymphocytes % (Manual) Seg Neutrophils # Seg Neutrophils # Man Lymphocytes # (Manual) PT INR APTT Heparin Anti-Xa Level 1.06 H Sodium Potassium Chloride Carbon Dioxide BUN Glucose POC Glucose 201 H Hemoglobin A1c 17.7 H Calcium Phosphorus Magnesium Total Creatine Kinase CK-MB (CK-2) CK-MB (CK-2) Rel Index Troponin T NT-Pro-B Natriuret Pep Triglycerides 11/17/18 11/17/18 11/18/18 16:58 21:28 01:40 WBC RBC Hgb Hct RDW Lymph % (Auto) [place] % (Auto) Lymph # [place] # Seg Neutrophils % Seg Neuts % (Manual) Lymphocytes % (Manual) Seg Neutrophils # Seg Neutrophils # Man Lymphocytes # (Manual) PT INR APTT Heparin Anti-Xa Level Sodium Potassium Chloride Carbon Dioxide BUN 25 H Glucose POC Glucose 230 H 187 H Hemoglobin A1c Calcium Phosphorus Magnesium Total Creatine Kinase CK-MB (CK-2) CK-MB (CK-2) Rel Index Troponin T NT-Pro-B Natriuret Pep Triglycerides 11/18/18 11/18/18 11/18/18 01:40 04:49 04:49 WBC RBC Hgb Hct RDW 16.2 H Lymph % (Auto) 12.8 L [place] % (Auto) 7.8 H Lymph # [place] # 0.9 H Seg Neutrophils % 78.1 H Seg Neuts % (Manual) Lymphocytes % (Manual) Seg Neutrophils # 8.6 H Seg Neutrophils # Man Lymphocytes # (Manual) PT INR APTT Heparin Anti-Xa Level Sodium Potassium Chloride Carbon Dioxide BUN 24 H Glucose POC Glucose Hemoglobin A1c Calcium Phosphorus Magnesium Total Creatine Kinase 323 H CK-MB (CK-2) 28.6 H CK-MB (CK-2) Rel Index 8.8 H Troponin T 1.290 H* NT-Pro-B Natriuret Pep Triglycerides 11/18/18 11/18/18 11/18/18 12:03 16:53 21:49 WBC RBC Hgb Hct RDW Lymph % (Auto) [place] % (Auto) Lymph # [place] # Seg Neutrophils % Seg Neuts % (Manual) Lymphocytes % (Manual) Seg Neutrophils # Seg Neutrophils # Man Lymphocytes # (Manual) PT INR APTT Heparin Anti-Xa Level Sodium Potassium Chloride Carbon Dioxide BUN Glucose POC Glucose 140 H 199 H 120 H Hemoglobin A1c Calcium Phosphorus Magnesium Total Creatine Kinase CK-MB (CK-2) CK-MB (CK-2) Rel Index Troponin T NT-Pro-B Natriuret Pep Triglycerides 11/18/18 11/19/18 11/19/18 23:06 03:27 03:27 WBC RBC 5.25 H Hgb 15.2 H Hct 47.4 H D RDW 16.6 H Lymph % (Auto) 12.2 L [place] % (Auto) Lymph # [place] # Seg Neutrophils % 82.1 H Seg Neuts % (Manual) Lymphocytes % (Manual) Seg Neutrophils # 8.9 H Seg Neutrophils # Man Lymphocytes # (Manual) PT INR APTT Heparin Anti-Xa Level Sodium Potassium Chloride 97.9 L Carbon Dioxide BUN 20 H Glucose 173 H POC Glucose 121 H Hemoglobin A1c Calcium Phosphorus Magnesium 1.60 L Total Creatine Kinase CK-MB (CK-2) CK-MB (CK-2) Rel Index Troponin T NT-Pro-B Natriuret Pep Triglycerides 11/19/18 11/19/18 11/19/18 03:27 04:48 04:48 WBC RBC Hgb Hct RDW Lymph % (Auto) [place] % (Auto) Lymph # [place] # Seg Neutrophils % Seg Neuts % (Manual) Lymphocytes % (Manual) Seg Neutrophils # Seg Neutrophils # Man Lymphocytes # (Manual) PT INR APTT 45.1 H Heparin Anti-Xa Level 1.10 H Sodium Potassium 3.5 L Chloride Carbon Dioxide 31 H BUN 20 H Glucose 149 H POC Glucose Hemoglobin A1c Calcium Phosphorus Magnesium Total Creatine Kinase CK-MB (CK-2) CK-MB (CK-2) Rel Index Troponin T NT-Pro-B Natriuret Pep Triglycerides 11/19/18 11/19/18 11/19/18 06:32 11:54 17:21 WBC RBC Hgb Hct RDW Lymph % (Auto) [place] % (Auto) Lymph # [place] # Seg Neutrophils % Seg Neuts % (Manual) Lymphocytes % (Manual) Seg Neutrophils # Seg Neutrophils # Man Lymphocytes # (Manual) PT INR APTT Heparin Anti-Xa Level Sodium Potassium Chloride Carbon Dioxide BUN Glucose POC Glucose 147 H 186 H 190 H Hemoglobin A1c Calcium Phosphorus Magnesium Total Creatine Kinase CK-MB (CK-2) CK-MB (CK-2) Rel Index Troponin T NT-Pro-B Natriuret Pep Triglycerides 11/19/18 11/20/18 11/20/18 21:18 06:24 08:05 WBC RBC Hgb Hct RDW Lymph % (Auto) [place] % (Auto) Lymph # [place] # Seg Neutrophils % Seg Neuts % (Manual) Lymphocytes % (Manual) Seg Neutrophils # Seg Neutrophils # Man Lymphocytes # (Manual) PT INR APTT Heparin Anti-Xa Level Sodium Potassium Chloride Carbon Dioxide BUN Glucose POC Glucose 298 H 339 H 300 H Hemoglobin A1c Calcium Phosphorus Magnesium Total Creatine Kinase CK-MB (CK-2) CK-MB (CK-2) Rel Index Troponin T NT-Pro-B Natriuret Pep Triglycerides 11/20/18 11/21/18 11/21/18 21:29 04:28 05:38 WBC RBC Hgb Hct RDW Lymph % (Auto) [place] % (Auto) Lymph # [place] # Seg Neutrophils % Seg Neuts % (Manual) Lymphocytes % (Manual) Seg Neutrophils # Seg Neutrophils # Man Lymphocytes # (Manual) PT INR APTT Heparin Anti-Xa Level Sodium Potassium 3.4 L Chloride 95.9 L Carbon Dioxide 33 H BUN Glucose 378 H POC Glucose 432 H 356 H Hemoglobin A1c Calcium Phosphorus Magnesium Total Creatine Kinase CK-MB (CK-2) CK-MB (CK-2) Rel Index Troponin T NT-Pro-B Natriuret Pep Triglycerides 11/21/18 11/21/18 11/21/18 11:45 16:39 21:03 WBC RBC Hgb Hct RDW Lymph % (Auto) [place] % (Auto) Lymph # [place] # Seg Neutrophils % Seg Neuts % (Manual) Lymphocytes % (Manual) Seg Neutrophils # Seg Neutrophils # Man Lymphocytes # (Manual) PT INR APTT Heparin Anti-Xa Level Sodium Potassium Chloride Carbon Dioxide BUN Glucose POC Glucose 495 H 318 H 107 H Hemoglobin A1c Calcium Phosphorus Magnesium Total Creatine Kinase CK-MB (CK-2) CK-MB (CK-2) Rel Index Troponin T NT-Pro-B Natriuret Pep Triglycerides 11/22/18 11/22/18 11/22/18 04:55 05:46 11:31 WBC RBC Hgb Hct RDW Lymph % (Auto) [place] % (Auto) Lymph # [place] # Seg Neutrophils % Seg Neuts % (Manual) Lymphocytes % (Manual) Seg Neutrophils # Seg Neutrophils # Man Lymphocytes # (Manual) PT 23.7 H INR 1.97 H APTT Heparin Anti-Xa Level Sodium Potassium Chloride Carbon Dioxide BUN Glucose POC Glucose 228 H 271 H Hemoglobin A1c Calcium Phosphorus Magnesium Total Creatine Kinase CK-MB (CK-2) CK-MB (CK-2) Rel Index Troponin T NT-Pro-B Natriuret Pep Triglycerides 11/22/18 11/22/18 11/23/18 17:25 21:57 04:42 WBC RBC Hgb Hct RDW Lymph % (Auto) [place] % (Auto) Lymph # [place] # Seg Neutrophils % Seg Neuts % (Manual) Lymphocytes % (Manual) Seg Neutrophils # Seg Neutrophils # Man Lymphocytes # (Manual) PT 34.8 H INR 3.18 H APTT Heparin Anti-Xa Level Sodium Potassium Chloride Carbon Dioxide BUN Glucose POC Glucose 252 H 258 H Hemoglobin A1c Calcium Phosphorus Magnesium Total Creatine Kinase CK-MB (CK-2) CK-MB (CK-2) Rel Index Troponin T NT-Pro-B Natriuret Pep Triglycerides 11/23/18 11/23/18 11/23/18 04:42 04:42 05:43 WBC 20.2 H RBC Hgb Hct RDW 16.8 H Lymph % (Auto) [place] % (Auto) Lymph # [place] # Seg Neutrophils % Seg Neuts % (Manual) 89.0 H Lymphocytes % (Manual) 5.0 L Seg Neutrophils # Seg Neutrophils # Man 18.0 H Lymphocytes # (Manual) 1.0 L PT INR APTT Heparin Anti-Xa Level Sodium Potassium 3.5 L Chloride 97.2 L Carbon Dioxide 35 H BUN 25 H Glucose 157 H POC Glucose 164 H Hemoglobin A1c Calcium 8.3 L Phosphorus Magnesium Total Creatine Kinase CK-MB (CK-2) CK-MB (CK-2) Rel Index Troponin T NT-Pro-B Natriuret Pep Triglycerides
[2018-11-23 13:24] VITALS: BP 137/78
--- NOTE | 2018-11-23 14:49 | Discharge Summary ---
Providers - Providers Date of Admission: 11/17/18 01:01 Date of discharge: 11/23/18 Attending physician: DEVIKA TRAN 11/17/18 01:12 Consult to Physician [CONS] Stat Comment: Consulting Provider: FRAN LOPEZ Physician Instructions: Reason For Exam: nstemi 11/17/18 01:45 Consult to Physician [CONS] Routine Comment: Consulting Provider: NATIVIDAD MELARA Physician Instructions: Reason For Exam: ICU ADMISSION FOR INSULIN DRIP 11/20/18 09:13 Consult to Cardiac Rehabilitation [CONS] Routine Reason For Exam: Cardiac Rehab Evaluation Primary care physician: [facility], Hospitalization Reason for admission: chest pain Condition: Fair Pertinent studies: Chest x-ray; cardiomegaly Echocardiogram; left ventricular ejection fraction 20-25%, thrombus in the left ventricular apex Cardiac catheterization; Patent coronary arteries left main patent LAD patent circumflex patent RCA patent with severe LV dysfunction with EF 20-25% Hospital course: 63-year-old female patient with significant past medical history of hypertension diabetes migraine headaches diverticulitis COPD was admitted through emergency room with atypical chest pain, Patient was initially evaluated admitted to the hospital symptomatically managed, evaluated by pulmonary as well as radiology tech, patient underwent cardiac workup, Echocardiogram, coronary angiogram and chest x-rays, the findings of which are as mentioned above, Patient was symptomatically m anaged medications optimized, patient has a pica thrombus managed with anticoagulation with Coumadin, Therapeutic INR 2-3, Patient's symptoms significantly improved today's comfortable no new complaints by a signs reviewed, Physical examination prior to discharge no new changes Cleared by cardiology pulmonary for discharge and follow-up with them per scheduled Patient was hemodynamically and clinically stable at discharge Discharge Diagnosis: --Non-ST elevation [place]; serial cardiac enzymes, aspirin and beta blockers fl[place] inhibitors nitrates and statins, s/p Heart cath ; Patent coronary arteries left main patent LAD patent circumflex patent RCA patent with severe LV dysfunction with EF 20-25% --Diabetic ketoacidosis/hyperosmolar state;s/p insulin drip: Resolved --Type 2 diabetes mellitus ; uncontrolled Accu-Chek sliding scale coverage ADA diet, Increase insulin dose , --Acute hypoxic respiratory failure; secondary to COPD exacerbation Mild improvement, oxygen, nebulizers, IV steroids, inhalation steroids, Evaluation for home oxygen at discharge --Acute exacerbation of COPD; continue about treatment --LV Thrombus ; Full dose Lovenox and Coumadin , target INR between 2-3 INR today is 1.9, -- Acute Systolic congestive heart failure;EF 20-25% Non-Ischemic cardiomyopathy, continue current medications --Hypokalemia : replaced with kcl --Hypo magnessemia: replace per protocol --Hypertensive urgency; present on admission, patient blood pressures reasonable level Continue current antihypertensives and when necessary medications --Dyslipidemia; continue statin Patient is stable at discharge Disposition: [id number] HOME UNDER HOME [facility] Time spent for discharge: 31min Core Measure Documentation - Palliative Care Palliative Care/ Comfort Measures: Not Applicable - Core Measures Any of the following diagnoses?: heart failure - Heart Failure Discharge Requirements [place]/ARB for LVSD if EF <40%: Yes Beta elana at discharge: Yes Exam - Constitutional Vitals: Temp Pulse Resp BP Pulse Ox 97.9 F 82 20 137/78 98 11/23/18 08:00 11/23/18 13:23 11/23/18 11:30 11/23/18 13:23 11/23/18 10:00 General appearance: Present: no acute distress, well-nourished - EENT Eyes: Present: PERRL, EOM intact - Neck Neck: Present: supple, normal ROM - Respiratory Respiratory effort: normal Respiratory: bilateral: diminished, negative: rales, rhonchi, wheezing - Cardiovascular Rhythm: regular Heart Sounds: Present: S1 & S2 - Extremities Extremities: no ischemia, No edema - Abdominal General gastrointestinal: Present: soft, non-tender, non-distended, normal bowel sounds - Integumentary Integumentary: Present: clear, warm - Musculoskeletal Musculoskeletal: generalized weakness - Psychiatric Psychiatric: appropriate mood/affect, cooperative - Neurologic Neurologic: moves all extremities, other (legally blind) Plan Activity: advance as tolerated, fall precautions Diet: diabetic, other (cardiac diet) Special Instructions: physical therapy Additional Instructions: check INR in 2 days [ 11/26/18] at PMD/cardiology office Follow up with: PAVEL MINAYA MD [Primary Care Provider] - 3-5 Days Forms: Warfarin Discharge Instruction Prescriptions: ALBUTEROL Inhaler(NF) [VENTOLIN Inhaler(NF)] 1 puff IH QID PRN #1 inha PRN Reason: Shortness Of Breath AtorvaSTATin [Lipitor] 80 mg PO QHS #30 tablet Fluticasone/Salmeterol [Advair Diskus 250-50 mcg] 1 puff IH BID #1 disk.w.dev Furosemide [Lasix TAB] 40 mg PO QDAY #30 tablet guaiFENesin ER [Mucinex ER] 600 mg PO BID #30 tablet hydrALAZINE [Apresoline TAB] 50 mg PO Q8HR #90 tablet ISOSORBIDE MONOnitrate [Imdur ER] 30 mg PO QDAY #30 tablet Lisinopril [Zestril TAB] 20 mg PO BID #60 tablet Metoprolol [Lopressor TAB] 50 mg PO BID #60 tablet Pantoprazole [Protonix TAB] 40 mg PO BID #30 tablet Spironolactone [Aldactone] 25 mg PO QDAY #30 tablet Warfarin Sodium [Coumadin] 2 mg PO QHS #10 tablet
[2018-11-24] MEDS ORDERED: LASIX PO SCH (10:00)
== END 2018-11-23 17:31 | disposition home health service (06) | DRG 280 ==
LOC: ED 19:59 → CC1 11-17 01:01 → 4A 11-18 22:19
PROVIDERS: ADMIT Internal Medicine; ATTEND Internal Medicine
PROC: 4A023N7 Measurement of Cardiac Sampling and Pressure, Left Heart, Percutaneous Approach (ICD-10-PCS; principal; 2018-11-20)
PROC: B2111ZZ Fluoroscopy of Multiple Coronary Arteries using Low Osmolar Contrast (ICD-10-PCS; 2018-11-20)
DX: I21.A1 Myocardial infarction type 2 (principal); I50.21 Acute systolic (congestive) heart failure; E11.10 Type 2 diabetes mellitus with ketoacidosis without coma; J96.01 Acute respiratory failure with hypoxia; J44.1 Chronic obstructive pulmonary disease with (acute) exacerbation; I16.1 Hypertensive emergency; I42.0 Dilated cardiomyopathy; D68.59 Other primary thrombophilia; E78.5 Hyperlipidemia, unspecified; F17.210 Nicotine dependence, cigarettes, uncomplicated; I51.3 Intracardiac thrombosis, not elsewhere classified; I16.0 Hypertensive urgency; E87.6 Hypokalemia; E83.42 Hypomagnesemia; I11.0 Hypertensive heart disease with heart failure; G43.909 Migraine, unspecified, not intractable, without status migrainosus; Z90.710 Acquired absence of both cervix and uterus; Z90.49 Acquired absence of other specified parts of digestive tract; Z88.1 Allergy status to other antibiotic agents; Z88.5 Allergy status to narcotic agent; Z88.0 Allergy status to penicillin; Z88.8 Allergy status to other drugs, medicaments and biological substances; Z79.899 Other long term (current) drug therapy; Z79.84 Long term (current) use of oral hypoglycemic drugs
CPT/HCPCS: 36415; 71045; 71046; 80048; 80061; 82010; 82550; 82553; 82962; 83036; 83735; 83880; 84100; 84484; 85007; 85014; 85018; 85025; 85049; 85520; 85610; 85730; 93005; 93010; 93306; 93458; 94640; 94760; 96374; G0378; A9270-GY; C1894; J0360; J1170; J1644; J1650; J1815; J1940; J2920; J2930; J3475; J7040; Q9967